=== PATIENT | female | born 1955 | race Caucasian/White ===

== ENCOUNTER 2018-03-29 16:44 | Inpatient (IN) | payer OTHER ==
--- NOTE | 2018-03-29 18:09 | ED ---
General Adult HPI - General Chief complaint: Recheck/Abnormal Lab/Rx Stated complaint: Nervousness Time Seen by Provider: 03/29/18 17:21 Source: patient Mode of arrival: ambulatory Limitations: no limitations - History of Present Illness Initial comments: 62-year-old female with past medical history significant for hypertension, CVA, heart arrhythmia, presents to the emergency department today with multiple complaints. Patient states over the last week and a half she has been having intermittent episodes where she has shaking and weakness in her arms, mostly on the left side. Patient states that she drops things frequently. She states that she has also been having shooting pains in her neck that radiates up into her head and down her right arm. Patient states that sometimes the episodes last for hours and sometimes they go away quickly. Patient states that she started having episodes again today so she presented here for evaluation. She has been having chest pain on and off for the last few days as well. Denies any nausea, vomiting, sweats, or dizziness. Patient states that she occasionally gets headaches and has blurred vision with this. She currently denies any symptoms. Patient denies any current rash, fever, chills, abdominal pain, diarrhea, constipation, back pain, numbness, tingling, dizziness, weakness, hematuria, dysuria, urinary urgency, urinary frequency, or any other complaints. Does admit to drinking three shots of liquor at least once per week. - Related Data Home Medications Medication Instructions Recorded Confirmed ALPRAZolam 1 mg PO TID PRN 04/02/15 04/10/15 Losartan/Hydrochlorothiazide 1 tab PO DAILY 04/02/15 04/10/15 [Losartan-Hctz 100-25 mg Tab] amLODIPine [Norvasc] 10 mg PO DAILY 04/03/15 04/10/15 Previous Rx's Medication Instructions Recorded Aspirin EC [Ecotrin] 325 mg PO DAILY #30 tablet. 04/05/15 Atorvastatin [Lipitor] 40 mg PO HS #30 04/05/15 Carvedilol [Coreg] 6.25 mg PO BID #0 04/05/15 Furosemide [Lasix] 20 mg PO DAILY #5 tab 04/10/15 Allergies Allergy/AdvReac Type Severity Reaction Status Date / Time rice Allergy Anaphylaxis Uncoded 03/29/18 16:56 Review of Systems ROS Statement: Those systems with pertinent positive or pertinent negative responses have been documented in the HPI. ROS Other: All systems not noted in ROS Statement are negative. Past Medical History Past Medical History: Atrial Fibrillation, GERD/Reflux, Hyperlipidemia, Hypertension, Musculoskeletal Disorder, Osteoarthritis (OA), Supraventricular Tachycardia (SVT) Additional Past Medical History / Comment(s): irregular heart beat History of Any Multi-Drug Resistant Organisms: None Reported Past Surgical History: Ablation, Heart Catheterization, Tonsillectomy, Tubal Ligation Additional Past Surgical History / Comment(s): cardiac ablation, implanted slurry mixer to chest Past Anesthesia/Blood Transfusion Reactions: No Reported Reaction Past Psychological History: Anxiety Smoking Status: Never smoker Past Alcohol Use History: Occasional Past Drug Use History: None Reported - Past Family History Mother Family Medical History: Liver Disease Father Family Medical History: Coronary Artery Disease (CAD), Myocardial Infarction ([place] ) Sister(s) Family Medical History: No Reported History, Unable to Obtain Brother(s) Family Medical History: Cancer Daughter(s) Family Medical History: No Reported History General Exam Limitations: no limitations General appearance: alert, in no apparent distress, other (This is a well- developed, well-nourished adult female patient in no acute distress. Vital signs upon presentation are temperature 98.6F, pulse 77, respirations 18, blood pressure 147/91, pulse ox 97% on room air.) Eye exam: Present: normal appearance, PERRL, EOMI, nystagmus (Horizontal gaze nystagmus right and left.). Absent: scleral icterus, conjunctival injection, periorbital swelling ENT exam: Present: normal exam, normal oropharynx, mucous membranes moist Neck exam: Present: normal inspection, full ROM. Absent: tenderness, meningismus, lymphadenopathy Respiratory exam: Present: normal lung sounds bilaterally. Absent: respiratory distress, wheezes, rales, rhonchi, stridor Cardiovascular Exam: Present: regular rate, normal rhythm, normal heart sounds. Absent: systolic murmur, diastolic murmur, rubs, gallop, clicks GI/Abdominal exam: Present: soft, normal bowel sounds. Absent: distended, tenderness, guarding, rebound, rigid Extremities exam: Present: normal inspection, full ROM, normal capillary refill , other (Skin to the extremities is pink, warm, and dry. Cap refills less than 3 seconds. Radial pulses are 2+ and equal bilaterally. Pedal pulses are 2+ and equal bilaterally. There is evidence of ankle and pedal edema, 1+ pitting.) . Absent: tenderness, pedal edema, joint swelling, calf tenderness Back exam: Present: normal inspection. Absent: vertebral tenderness Neurological exam: Present: alert, oriented X3, CN II-XII intact Expanded Speech: Present: fluid speech Cranial nerves: EOM's Intact: Normal Cerebellar function: Finger to Nose: Normal Motor strength exam: RUE: 5, LUE: 5, RLE: 5, LLE: 5 Eye Response: (4) open spontaneously Motor Response: (6) obeys commands Verbal Response: (5) oriented [place] Total: 15 Psychiatric exam: Present: normal affect, normal mood Skin exam: Present: warm, dry, intact, normal color. Absent: rash Course Vital Signs 03/29/18 03/29/18 03/29/18 16:53 18:48 19:42 Temperature 98.6 F 98.5 F Pulse Rate 77 60 71 Respiratory 18 16 18 Rate Blood Pressure 147/91 150/68 128/59 O2 Sat by Pulse 97 95 95 Oximetry EKG Findings - EKG Comments: EKG Findings:: EKG obtained at 1836 shows sinus rhythm with occasional premature ventricular complexes. Ventricular rate is 69, CA interval 194, QR voodoo 86, QT 408, QTC 437. No evidence of ST elevation or depression. Did review EKG from 2014, changes appear chronic. Medical Decision Making - Medical Decision Making 62-year-old female patient presents the emergency department today for complaints of upper extremity shaking and weakness worse on the left side. Patient was also complaining of sharp shooting pain radiating from her neck up into her head and down her right arm. Physical examination at this time is unremarkable. Patient is neurologically intact. Patient does have history of hypertension, CVA, and arrhythmia so we did perform a neurologic workup including CT of the brain which showed no acute intracranial abnormality. I did also CT the C-spine to evaluate the pain in her neck, there does show evidence of degenerative disc disease of the neck. Labs reviewed and are unremarkable. Given patient's history and symptoms we will admit for possible TIA. Neurology will be consulted. I did discuss plan with the patient, she is agreeable. - Lab Data Result diagrams: 03/29/18 18:30 03/29/18 18:30 Lab Results 03/29/18 03/29/18 03/29/18 Range/Units 18:30 18:30 18:30 WBC 11.8 H (3.8-10.6) k/uL RBC 4.13 (3.80-5.40) m/uL Hgb 11.7 (11.4-16.0) gm/dL Hct 35.5 (34.0-46.0) % MCV 86.0 (80.0-100.0) fL MCH 28.4 (25.0-35.0) pg MCHC 33.0 (31.0-37.0) g/dL RDW 12.9 (11.5-15.5) % Plt Count 361 (150-450) k/uL Neutrophils % 69 % Lymphocytes % 17 % Monocytes % 8 % Eosinophils % 4 % Basophils % 0 % Neutrophils # 8.2 H (1.3-7.7) k/uL Lymphocytes # 2.0 (1.0-4.8) k/uL Monocytes # 0.9 (0-1.0) k/uL Eosinophils # 0.5 (0-0.7) k/uL Basophils # 0.0 (0-0.2) k/uL PT (9.0-12.0) sec INR (<1.2) APTT (22.0-30.0) sec Sodium 140 (137-145) mmol/L Potassium 4.3 (3.5-5.1) mmol/L Chloride 100 (98-107) mmol/L Carbon Dioxide 28 (22-30) mmol/L Anion Gap 12 mmol/L BUN 19 H (7-17) mg/dL Creatinine 0.85 (0.52-1.04) mg/dL Est GFR (CKD-EPI)AfAm 84 (>60 ml/min/1.73 sqM) Est GFR (CKD-EPI)NonAf 73 (>60 ml/min/1.73 sqM) Glucose 92 (74-99) mg/dL Calcium 9.4 (8.4-10.2) mg/dL Total Bilirubin 0.6 (0.2-1.3) mg/dL AST 32 (14-36) U/L ALT 36 (9-52) U/L Alkaline Phosphatase 88 (38-126) U/L Total Creatine Kinase 71 (30-135) U/L CK-MB (CK-2) 1.1 (0.0-2.4) ng/mL CK-MB (CK-2) Rel Index 1.5 Troponin I <0.012 (0.000-0.034) ng/mL Total Protein 7.6 (6.3-8.2) g/dL Albumin 4.4 (3.5-5.0) g/dL Urine Color Urine Appearance (Clear) Urine pH (5.0-8.0) Ur Specific [place] (1.001-1.035) Urine Protein (Negative) Urine Glucose (UA) (Negative) Urine Ketones (Negative) Urine Blood (Negative) Urine Nitrite (Negative) Urine Bilirubin (Negative) Urine Urobilinogen (<2.0) mg/dL Ur Leukocyte Esterase (Negative) 03/29/18 03/29/18 Range/Units 18:30 19:53 WBC (3.8-10.6) k/uL RBC (3.80-5.40) m/uL Hgb (11.4-16.0) gm/dL Hct (34.0-46.0) % MCV (80.0-100.0) fL MCH (25.0-35.0) pg MCHC (31.0-37.0) g/dL RDW (11.5-15.5) % Plt Count (150-450) k/uL Neutrophils % % Lymphocytes % % Monocytes % % Eosinophils % % Basophils % % Neutrophils # (1.3-7.7) k/uL Lymphocytes # (1.0-4.8) k/uL Monocytes # (0-1.0) k/uL Eosinophils # (0-0.7) k/uL Basophils # (0-0.2) k/uL PT 10.6 (9.0-12.0) sec INR 1.1 (<1.2) APTT 23.0 (22.0-30.0) sec Sodium (137-145) mmol/L Potassium (3.5-5.1) mmol/L Chloride (98-107) mmol/L Carbon Dioxide (22-30) mmol/L Anion Gap mmol/L BUN (7-17) mg/dL Creatinine (0.52-1.04) mg/dL Est GFR (CKD-EPI)AfAm (>60 ml/min/1.73 sqM) Est GFR (CKD-EPI)NonAf (>60 ml/min/1.73 sqM) Glucose (74-99) mg/dL Calcium (8.4-10.2) mg/dL Total Bilirubin (0.2-1.3) mg/dL AST (14-36) U/L ALT (9-52) U/L Alkaline Phosphatase (38-126) U/L Total Creatine Kinase (30-135) U/L CK-MB (CK-2) (0.0-2.4) ng/mL CK-MB (CK-2) Rel Index Troponin I (0.000-0.034) ng/mL Total Protein (6.3-8.2) g/dL Albumin (3.5-5.0) g/dL Urine Color Colorless Urine Appearance Clear (Clear) Urine pH 7.5 (5.0-8.0) Ur Specific [place] 1.005 (1.001-1.035) Urine Protein Negative (Negative) Urine Glucose (UA) Negative (Negative) Urine Ketones Negative (Negative) Urine Blood Negative (Negative) Urine Nitrite Negative (Negative) Urine Bilirubin Negative (Negative) Urine Urobilinogen <2.0 (<2.0) mg/dL Ur Leukocyte Esterase Negative (Negative) - Radiology Data Radiology results: report reviewed, image reviewed CT brain and C-spine without contrast was performed. Report was reviewed in its entirety. Impression by Dr. Bhandari shows no acute fracture or dislocation evident in the cervical spine. There is no acute intracranial hemorrhage, mass effect, or midline shift. Two-view x-ray of the chest is obtained. There is no focal airspace opacity, pleural effusion, or pneumothorax. The cardiac silhouette size is within normal limits. There are overlying cardiac leads. Overlying loop recorder is present as on prior. The osseous structures are intact. Impression by Dr. Bhandari shows no acute cardio pulmonary process. Disposition Clinical Impression: TIA (transient ischemic attack) Disposition: ADMITTED IP TO THIS HOSP Condition: Serious Referrals: Tayler Dunne III, MD [Primary Care Provider] - 1-2 days Decision to Admit Reason: Admit from EC Decision Date: 03/29/18 Decision Time: 21:04
[2018-03-29 19:10] LABS: Albumin 4.4 g/dL (3.5-5.0); Calcium 9.4 mg/dL (8.4-10.2); Potassium 4.3 mmol/L (3.5-5.1); Total Bilirubin 0.6 mg/dL (0.2-1.3); Total Protein 7.6 g/dL (6.3-8.2)
[2018-03-29 19:13] LABS: Basophils % (A) 0 %; Eosinophils # (A) 0.5 k/uL (0-0.7); Eosinophils % (A) 4 %; HCT 35.5 % (34.0-46.0); HGB 11.7 gm/dL (11.4-16.0); Lymphocytes % (A) 17 %; MCH 28.4 pg (25.0-35.0); Mean Platelet Volume 6.9; Monocytes # (A) 0.9 k/uL (0-1.0); Monocytes % (A) 8 %; Neutrophils # (A) 8.2 k/uL (1.3-7.7); Neutrophils % (A) 69 %; Platelet Count 361 k/uL (150-450); RBC 4.13 m/uL (3.80-5.40); RDW 12.9 % (11.5-15.5); WBC 11.8 k/uL (3.8-10.6)
[2018-03-29 19:18] LABS: INR 1.1 (<1.2); Prothrombin Time 10.6 sec (9.0-12.0)
[2018-03-29 19:25] LABS: Creatine Kinase 71 U/L (30-135)
[2018-03-29 19:39] LABS: Creatine Kinase MB 1.1 ng/mL (0.0-2.4); Troponin I <0.012 ng/mL (0.000-0.034)
--- NOTE | 2018-03-29 19:43 | XR ---
EXAMINATION TYPE: XR chest 2V DATE OF EXAM: 03/29/2018 COMPARISON: Prior chest x-ray 04/10/2015 HISTORY: Altered mental status TECHNIQUE: Frontal and lateral views of the chest are obtained. FINDINGS: There is no focal air space opacity, pleural effusion, or pneumothorax seen. The cardiac silhouette size is within normal limits. There are overlying cardiac leads. An overlying loop recorde r is present as on prior. The osseous structures are intact. IMPRESSION: No acute cardiopulmonary process.
--- NOTE | 2018-03-29 19:58 | CT ---
EXAMINATION TYPE: CT brain cspine wo con DATE OF EXAM: 03/29/2018 COMPARISON: CT brain 04/02/2015 HISTORY: Headache, weakness and neck pain. CT DLP: 1829 mGycm Automated exposure control for dose reduction was used. TECHNIQUE: CT scan of the head and cervical spine are performed without contrast. FINDINGS: There is no acute intracranial hemorrhage, mass effect, or midline shift identified. The ventricles and sulci are within normal limits in size. Brain density is stable. The globes are inta ct and the visualized sinuses are remarkable for inflammatory change in the ethmoid air cells, mastoi ds are well aerated. Cerebral vascular calcifications are present. Cervical spine is visualized in its entirety from C1 through upper thoracic levels and demonstrates s atisfactory alignment without evidence of acute fracture or dislocation. There is multilevel spondylo sis. Loss of disc height present at C4-5, C5-6 compatible with degenerative disc disease. Prevertebra l soft tissue appears within normal limits. There is multilevel facet arthropathy and foraminal encr oachment. The C1-C2 articulation is unremarkable. IMPRESSION: 1. There is no acute fracture or dislocation evident in the cervical spine. 2. No acute intracranial hemorrhage, mass effect, or midline shift is seen.
[2018-03-29 20:00] LABS: Appearance,Urine Clear (Clear); Bilirubin,Urine Negative (Negative); Blood,Urine Negative (Negative); Color,Urine Colorless; Glucose,Urine (UA) Negative (Negative); Ketones,Urine Negative (Negative); Leukocyte Esterase,Urine Negative (Negative); Nitrite,Urine Negative (Negative); PH, Urine 7.5 (5.0-8.0); Protein,Urine Negative (Negative); Specific Gravity,Urine 1.005 (1.001-1.035); Urobilinogen,Urine <2.0 mg/dL (<2.0)
[2018-03-29] MEDS ORDERED: NALOXONE 0.4 MG/ML 1 ML VIAL IV PRN (20:57)
[2018-03-29] MEDS ORDERED: SODIUM CHLORIDE 0.9% 1,000 ML IV SCH (21:00)
[2018-03-29 22:39] VITALS: RESP 16; BMI 27.1
[2018-03-29] MEDS: ALPRAZolam 1 MG TAB PO PRN (22:57)
[2018-03-30] MEDS: ALPRAZolam 1 MG TAB PO PRN (12:37)
[2018-03-30 13:13] VITALS: TEMP 97.3
[2018-03-30 13:14] VITALS: BP 101/74; PULSE 71
--- NOTE | 2018-03-30 14:09 | P.HPIM ---
History of Present Illness 62-year-old with history of present a TIA came in with compensative tingling and numbness in the left arm and electric shock like sensation going to the left arm patient has the neck pain and patient does have degenerative neck disease. Patient does not have any other weakness patient was comparing of generalized weakness. I'll obtain a TSH. Patient does have neck pain as well. Patient's symptomology is consistent with the radiculopathy from my degenerative neck disease has symptomology is not consistent with cerebrovascular accident. Patient will be discharged today follow-up with neurology as an outpatient will order outpatient echocardiogram and carotid Doppler. Patient had history of stroke in the past was at work up in the past patient takes aspirin at home. For her generalized weakness I did obtain a TSH is within normal limits patient to be further evaluated as an outpatient screen for depression as an outpatient. Patient denied any fever chills nausea vomiting. Patient denied any other focal weakness. Review of Systems REVIEW OF SYSTEMS: CONSTITUTIONAL: No fever, no malaise, no fatigue. HEENT: No recent visual problems or hearing problems. Denied any sore throat. CARDIOVASCULAR: No chest pain, orthopnea, PND, no palpitations, no syncope. PULMONARY: No shortness of breath, no cough, no hemoptysis. GASTROINTESTINAL: No diarrhea, no nausea, no vomiting, no abdominal pain. Normoactive bowel sounds. NEUROLOGICAL: No headaches, no weakness, no numbness. HEMATOLOGICAL: Denies any bleeding or petechiae. GENITOURINARY: Denies any burning micturition, frequency, or urgency. MUSCULOSKELETAL/RHEUMATOLOGICAL: Denies any joint pain, swelling, or any muscle pain. ENDOCRINE: Denies any polyuria or polydipsia. The rest of the 14-point review of systems is negative. Past Medical History Past Medical History: Atrial Fibrillation, GERD/Reflux, Hyperlipidemia, Hypertension, Musculoskeletal Disorder, Osteoarthritis (OA), Supraventricular Tachycardia (SVT) Additional Past Medical History / Comment(s): irregular heart beat History of Any Multi-Drug Resistant Organisms: None Reported Past Surgical History: Ablation, Heart Catheterization, Tonsillectomy, Tubal Ligation Additional Past Surgical History / Comment(s): cardiac ablation, implanted quality assurance monitor body to chest Past Anesthesia/Blood Transfusion Reactions: No Reported Reaction Past Psychological History: Anxiety Smoking Status: Never smoker Past Alcohol Use History: Occasional Past Drug Use History: None Reported - Past Family History Mother Family Medical History: Liver Disease Father Family Medical History: Coronary Artery Disease (CAD), Myocardial Infarction ([place] ) Sister(s) Family Medical History: No Reported History, Unable to Obtain Brother(s) Family Medical History: Cancer Daughter(s) Family Medical History: No Reported History Medications and Allergies Home Medications Medication Instructions Recorded Confirmed Type amLODIPine [Norvasc] 10 mg PO DAILY 04/03/15 03/30/18 History Aspirin EC [Ecotrin Low Dose] 81 mg PO DAILY 03/30/18 03/30/18 History Atorvastatin [Lipitor] 40 mg PO HS 03/30/18 03/30/18 History Carvedilol [Coreg] 12.5 mg PO BID 03/30/18 03/30/18 History Valsartan/Hydrochlorothiazide 1 tab PO DAILY 03/30/18 03/30/18 History [Valsartan-Hctz 80-12.5 mg Tab] rOPINIRole HCL [Requip] 0.5 mg PO HS 03/30/18 03/30/18 History Allergies Allergy/AdvReac Type Severity Reaction Status Date / Time rice Allergy Anaphylaxis Uncoded 03/29/18 16:56 Physical Exam Vitals: Vital Signs Temp Pulse Pulse Resp BP BP Pulse Ox 03/30/18 12:00 71 101/74 95 03/30/18 08:00 97.3 F L 72 113/69 94 L 03/30/18 04:00 70 16 120/59 97 03/30/18 00:00 97.8 F 79 16 145/70 96 03/29/18 22:09 97.8 F 03/29/18 22:08 97.9 F 74 16 140/80 98 03/29/18 21:55 78 18 150/80 98 03/29/18 19:42 98.5 F 71 18 128/59 95 03/29/18 18:48 60 16 150/68 95 03/29/18 16:53 98.6 F 77 18 147/91 97 Intake and Output 03/29/18 03/30/18 03/30/18 22:59 06:59 14:59 Intake Total 480 960 360 Balance 480 960 360 Intake: Oral 480 960 360 Other: Voiding Method Toilet Bedside Commode # Voids 3 3 Weight 67.132 kg 64.8 kg PHYSICAL EXAMINATION: GENERAL: The patient is alert and oriented x3, not in any acute distress. Well developed, well nourished. HEENT: Pupils are round and equally reacting to light. EOMI. No scleral icterus. No conjunctival pallor. Normocephalic, atraumatic. No pharyngeal erythema. No thyromegaly. CARDIOVASCULAR: S1 and S2 present. No murmurs, rubs, or gallops. PULMONARY: Chest is clear to auscultation, no wheezing or crackles. ABDOMEN: Soft, nontender, nondistended, normoactive bowel sounds. No palpable organomegaly. MUSCULOSKELETAL: No joint swelling or deformity. EXTREMITIES: No cyanosis, clubbing, or pedal edema. NEUROLOGICAL: Gross neurological examination did not reveal any focal deficits. Radicular symptoms as mentioned above SKIN: No rashes. Results CBC & Chem 7: 03/29/18 18:30 03/29/18 18:30 Labs: Abnormal Lab Results - Last 24 Hours (Table) 03/29/18 03/29/18 Range/Units 18:30 18:30 WBC 11.8 H (3.8-10.6) k/uL Neutrophils # 8.2 H (1.3-7.7) k/uL BUN 19 H (7-17) mg/dL Assessment and Plan Plan: -Tingling numbness in the left arm: Secondary to cervical and acropathy patient will benefit from anti-inflammatory medications patient will be Edmund and anti -inflammatory medication and GI prophylaxis. -Previous history of cerebral vascular accident -Coronary artery disease -History of super ventricular tachycardia , patient had a ablation procedure in the past -Hypertension patient is actually bit hypotensive and cutting down the dose of amlodipine patient will continue her valsartan and hydrochlorothiazide combination pill.
--- NOTE | 2018-03-30 14:37 | P.DS ---
Providers Date of admission: 03/29/18 21:50 Attending physician: Fritz Mosley Consults: 03/29/18 20:58 Consult Physician Routine Consulting Provider: Karissa Heaton Consult Reason/Comments: TIA Do you want consulting provider notified?: Yes Primary care physician: Tayler Dunne [facility] Course: Please refer to my HPI Patient Condition at Discharge: Serious Plan - Discharge Summary Discharge Rx Participant: Yes New Discharge Prescriptions: New Famotidine [Pepcid] 20 mg PO BID #30 tablet Naproxen [Naprosyn] 250 mg PO BID #20 tab Continue Valsartan/Hydrochlorothiazide [Valsartan-Hctz 80-12.5 mg Tab] 1 tab PO DAILY Aspirin EC [Ecotrin Low Dose] 81 mg PO DAILY rOPINIRole HCL [Requip] 0.5 mg PO HS Atorvastatin [Lipitor] 40 mg PO HS Carvedilol [Coreg] 12.5 mg PO BID Changed amLODIPine [Norvasc] 5 mg PO DAILY #0 Discharge Medication List Aspirin EC [Ecotrin Low Dose] 81 mg PO DAILY 03/30/18 [History] Atorvastatin [Lipitor] 40 mg PO HS 03/30/18 [History] Carvedilol [Coreg] 12.5 mg PO BID 03/30/18 [History] Famotidine [Pepcid] 20 mg PO BID #30 tablet 03/30/18 [Rx] Naproxen [Naprosyn] 250 mg PO BID #20 tab 03/30/18 [Rx] Valsartan/Hydrochlorothiazide [Valsartan-Hctz 80-12.5 mg Tab] 1 tab PO DAILY 10/17 [History] amLODIPine [Norvasc] 5 mg PO DAILY #0 03/30/18 [Rx] rOPINIRole HCL [Requip] 0.5 mg PO HS 03/30/18 [History] Follow up Appointment(s)/Referral(s): Tayler Dunne III, MD [Primary Care Provider] - 3 Days Karissa Heaton MD [STAFF PHYSICIAN] - 1 Week Discharge Disposition: HOME SELF-CARE
--- NOTE | 2018-03-30 17:29 | P.CNNES ---
History of Present Illness Consult date: 03/30/18 Requesting physician: Fritz Mosley Reason for Consult: TIA History of Present Illness: Patient is a pleasant 62-year-old female who is being evaluated by the neurology service on 03/30/2018 per the request of Dr. Mosley for TIA. Patient has significant history for hypertension, CVA, cardiac arrhythmia, and generalized weakness. Patient states over the last week and a half she been having intermittent episodes of upper extremity shaking and weakness. Patient states these episodes come and go. Patient states she is dropping things frequently. Patient reports having shooting pains in her neck that radiates up into her head and down her right arm. Patient does not have lateralizing weakness or numbness. Numbness and weakness are in bilateral upper extremities. Patient states these symptoms worsened after being taken off Xanax. Patient asking to be placed back on Xanax. CT of the brain was done which showed no acute intracranial hemorrhage. Patient also had CT of the cervical spine which shows multilevel spondylosis as well as degenerative disc disease at multiple levels. CT of the cervical spine also shows multilevel facet arthropathy with foraminal encroachment. Labs on admission showed to be WBC 11.8, and also elevated BUN of 19. At the time of my evaluation, patient's resting comfortably in bed and appears to be in no acute distress. Review of Systems REVIEW OF SYSTEMS: Otherwise unremarkable and noncontributory. 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 chest Past Anesthesia/Blood Transfusion Reactions: No Reported Reaction Past Psychological History: Anxiety Smoking Status: Never smoker Past Alcohol Use History: Occasional Past Drug Use History: None Reported - Past Family History Mother Family Medical History: Liver Disease Father Family Medical History: Coronary Artery Disease (CAD), Myocardial Infarction ([place] ) Sister(s) Family Medical History: No Reported History, Unable to Obtain Brother(s) Family Medical History: Cancer Daughter(s) Family Medical History: No Reported History Medications and Allergies Home Medications Medication Instructions Recorded Confirmed Type Aspirin EC [Ecotrin Low Dose] 81 mg PO DAILY 03/30/18 03/30/18 History Atorvastatin [Lipitor] 40 mg PO HS 03/30/18 03/30/18 History Carvedilol [Coreg] 12.5 mg PO BID 03/30/18 03/30/18 History Famotidine [Pepcid] 20 mg PO BID #30 tablet 03/30/18 Rx Naproxen [Naprosyn] 250 mg PO BID #20 tab 03/30/18 Rx Valsartan/Hydrochlorothiazide 1 tab PO DAILY 03/30/18 03/30/18 History [Valsartan-Hctz 80-12.5 mg Tab] amLODIPine [Norvasc] 5 mg PO DAILY #0 03/30/18 03/30/18 Rx rOPINIRole HCL [Requip] 0.5 mg PO HS 03/30/18 03/30/18 History Allergies Allergy/AdvReac Type Severity Reaction Status Date / Time rice Allergy Anaphylaxis Uncoded 03/29/18 16:56 Physical Examination - Vital Signs Vital Signs: Vital Signs Temp Pulse Pulse Resp BP BP Pulse Ox 03/30/18 12:00 71 101/74 95 03/30/18 08:00 97.3 F L 72 113/69 94 L 03/30/18 04:00 70 16 120/59 97 03/30/18 00:00 97.8 F 79 16 145/70 96 03/29/18 22:09 97.8 F 03/29/18 22:08 97.9 F 74 16 140/80 98 03/29/18 21:55 78 18 150/80 98 03/29/18 19:42 98.5 F 71 18 128/59 95 03/29/18 18:48 60 16 150/68 95 Intake and Output 03/30/18 03/30/18 03/30/18 06:59 14:59 22:59 Intake Total 960 600 Balance 960 600 Intake: Oral 960 600 Other: Voiding Method Toilet Bedside Commode # Voids 3 2 Weight 64.8 kg PHYSICAL EXAM: GENERAL APPEARANCE: Patient is a well-developed, female who appears to be in no acute distress. HEENT: Normocephalic, atraumatic, no facial asymmetry is seen. Neck is supple with no masses felt. CARDIOVASCULAR: Regular rate and rhythm. ABDOMEN: Nontender, nondistended. EXTREMITIES: Show no edema or clubbing. NEUROLOGICAL EXAM: Patient is awake, alert, and oriented 3. Speech and language are normal. Strength is full in all 4 extremities. Sensory exam to light touch is normal in all 4 extremities. No facial asymmetry is seen on cranial nerve testing. No tremors or seizure-like activity noted. Results - Laboratory Findings CBC and BMP: 03/29/18 18:30 03/29/18 18:30 Abnormal Lab Findings: Abnormal Labs 03/29/18 03/29/18 18:30 18:30 WBC 11.8 H Neutrophils # 8.2 H BUN 19 H Assessment and Plan Plan: Impression: 1. Bilateral upper extremity weakness 2. Bilateral upper extremity paresthesia 3. History of CVA 4. CAD Recommendation: Patient continues to complain of bilateral upper extremity weakness and numbness. She also complains of posterior neck pain that travels up into her head. CT of the cervical spine revealed degenerative disc disease as well as facet arthropathy with foraminal encroachment. Patient may benefit from cervical epidurals in the outpatient setting. Patient's symptoms are not consistent with TIA. Patient may benefit from anti-inflammatory medication such as naproxen. Patient is already on naproxen 250 mg twice a day in the home setting. I recommend to increase naproxen to 500 mg by mouth twice a day. Patient may follow-up in the office for further workup for cervical disc disease. Patient is stable from neurological standpoint for discharge. I will continue to follow with you on an as-needed basis. Thank you for allowing me to participate in the care of your patient. Feel free to call with any questions or concerns. I performed an examination of the patient and discussed the management with the BRUSH PAINTER. I have reviewed the BRUSH PAINTER notes and agree with the findings and plan of care.
== END 2018-03-30 16:37 | disposition home or self-care (01) | DRG 552 ==
LOC: EC 16:44 → 6SEL 21:50
PROVIDERS: ADMIT Internal Medicine; ATTEND Internal Medicine
DX: M46.92 Unspecified inflammatory spondylopathy, cervical region (principal); I10 Essential (primary) hypertension; K21.9 Gastro-esophageal reflux disease without esophagitis; E78.5 Hyperlipidemia, unspecified; M19.90 Unspecified osteoarthritis, unspecified site; F41.9 Anxiety disorder, unspecified; I25.10 Atherosclerotic heart disease of native coronary artery without angina pectoris; I48.91 Unspecified atrial fibrillation; M47.9 Spondylosis, unspecified; M50.30 Other cervical disc degeneration, unspecified cervical region; R40.2412 Glasgow coma scale score 13-15, at arrival to emergency department; Z86.73 Personal history of transient ischemic attack (TIA), and cerebral infarction without residual deficits; Z98.51 Tubal ligation status; Z82.49 Family history of ischemic heart disease and other diseases of the circulatory system; Z79.82 Long term (current) use of aspirin; Z79.899 Other long term (current) drug therapy; Z91.018 Allergy to other foods
CPT/HCPCS: 36415; 70450; 71046; 72125; 80053; 81003; 82550; 82553; 84443; 84484; 85025; 85610; 85730; 93005; 99285

== ENCOUNTER → 2018-04-17 | Outpatient (CLI) | payer OTHER ==
--- NOTE | 2018-04-17 16:59 | US ---
EXAMINATION TYPE: US carotid duplex BILAT DATE OF EXAM: 04/17/2018 COMPARISON: 04/03/2015 CLINICAL HISTORY: 62-year-old female. TIA TECHNIQUE: Carotid duplex ultrasound examination. Direct Doppler criteria was utilized. FINDINGS: EXAM MEASUREMENTS: RIGHT: Peak Systolic Velocity (PSV) cm/sec ----- Right CCA: 41.8 ----- Right ICA: 88.4 ----- Right ECA: 112.0 ICA/CCA ratio: 2.1 RIGHT: End Diastole cm/sec ----- Right CCA: 12.5 ----- Right ICA: 18.7 ----- Right ECA: 9.7 LEFT: Peak Systolic Velocity (PSV) cm/sec ----- Left CCA: 37.1 ----- Left ICA: 64.6 ----- Left ECA: 49.6 ICA/CCA ratio: 1.7 LEFT: End Diastole cm/sec ----- Left CCA: 10.4 ----- Left ICA: 26.2 ----- Left ECA: 3.1 VERTEBRALS (direction of flow): Right Vertebral: Antegrade Left Vertebral: Antegrade Rhythm: Arrhythmia Script Developer notes: Bilateral intimal thickening, no elevated velocities, right ICA/CCA ratio 2.1 IMPRESSION: Slightly elevated right ICA/CCA ratio could reflect a mild or moderate proximal right ICA stenosis. Criteria for Assigning % of Stenosis / Diameter reduction (Estimation based on the indirect measurements of the internal carotid artery velocities (ICA PSV). 1. Normal (no stenosis)=ICA PSV < 125 cm/s: ratio < 2.0: ICA EDV<40 cm/s. 2. Less than 50% stenosis=ICA PSV < 125 cm/s: ratio < 2.0: ICA EDV<40 cm/s. 3. 50 to 69% stenosis=ICA PSV of 125 to 230 cm/s: ration 2.0 ? 4.0: ICA EDV 40-100 cm/s. 4. Greater than 70% stenosis to near occlusion= ICA PSV > 230 cm/s: ratio > 4.0: ICA EDV > 100 cm/s. 5. Near occlusion= ICA PSV velocities may be low or undetectable: variable ratio and ICA EDV. 6. Total occlusion=unable to detect flow.
--- NOTE | 2018-04-18 09:38 | ECHOF ---
Referral Reason:G45.9 Transient cerebral ischemic attack, unspecif MEASUREMENTS -------- HEIGHT: 157.5 cm WEIGHT: 65.8 kg BP: RVIDd: 2.5 cm (< 3.3) IVSd: 1.1 cm (0.6 - 1.1) LVIDd: 4.7 cm (3.9 - 5.3) LVPWd: 1.1 cm (0.6 - 1.1) IVSs: 1.3 cm LVIDs: 2.7 cm LVPWs: 1.3 cm LAESV Index (A-L): 26.84 ml/m Ao Diam: 2.8 cm (2.0 - 3.7) AV Cusp: 1.5 cm (1.5 - 2.6) LA Diam: 2.7 cm (2.7 - 3.8) MV EXCURSION: 15.488 mm (> 18.000) MV EF SLOPE: 75 mm/s (70 - 150) EPSS: 0.3 cm MV E Reilly: 0.72 m/s MV DecT: 312 ms MV A Reilly: 1.06 m/s MV E/A Ratio: 0.68 RAP: 5.00 mmHg RVSP: 38.55 mmHg FINDINGS -------- Sinus rhythm. Frequent ventricular premature beats. This was a technically adequate study. The left ventricular size is normal. There is borderline concentric left ventricular hypertrophy. Overall left ventricular systolic function is normal with, an EF between 55 - 60 %. The right ventricle is normal in size and function. Normal LA size by volume 22+/-6 ml/m2. The right atrium is normal in size. Aortic valve is trileaflet and is mildly thickened. Trace to mild aortic regurgitation. There is no evidence of aortic stenosis. The mitral valve leaflets are mildly thickened. Mild mitral regurgitation is present. Mild tricuspid regurgitation present. There is borderline pulmonary artery hypertension. The righ t ventricular systolic pressure, as measured by Doppler, is 38.55mmHg. The pulmonic valve was not well visualized. The aortic root size is normal. Normal inferior vena cava with normal inspiratory collapse consistent with estimated right atrial pre ssure of 5 mmHg. CONCLUSIONS -------- 1. Sinus rhythm. 2. Frequent ventricular premature beats. 3. This was a technically adequate study. 4. The left ventricular size is normal. 5. There is borderline concentric left ventricular hypertrophy. 6. Overall left ventricular systolic function is normal with, an EF between 55 - 60 %. 7. Normal LA size by volume 22+/-6 ml/m2. 8. Aortic valve is trileaflet and is mildly thickened. 9. Trace to mild aortic regurgitation. 10. The mitral valve leaflets are mildly thickened. 11. Mild mitral regurgitation is present. 12. Mild tricuspid regurgitation present. 13. There is borderline pulmonary artery hypertension. 14. The right ventricular systolic pressure, as measured by Doppler, is 38.55mmHg. 15. The pulmonic valve was not well visualized. 16. The aortic root size is normal. ELECTRICAL SYSTEMS ENGINEER: Manan Tinajero RDCS
== END | disposition home or self-care (01) ==
LOC: RADECHMAIN 13:46
PROVIDERS: ATTEND Internal Medicine
DX: G45.9 Transient cerebral ischemic attack, unspecified (principal); I08.3 Combined rheumatic disorders of mitral, aortic and tricuspid valves; I27.20 Pulmonary hypertension, unspecified
CPT/HCPCS: 93306; 93880

== ENCOUNTER → 2018-11-04 | Day surgery (SDC) | payer OTHER ==
[~2018-11-04] MED LIST: LIDOCAINE 1% INJ 10MG/ML (20 ML MDV) ONE; LIDOCAINE 1% INJ 10MG/ML (20 ML MDV) SQ ONE; SODIUM CHLORIDE 0.9% 1,000 ML IV SCH; ceFAZolin IN SWFI 2 GM/20 ML SYRINGE IVP ONE; fentaNYL (PF) 50 MCG/ML 2 ML AMP IV ONE; fentaNYL (PF) 50 MCG/ML 2 ML AMP ONE
[2018-11-04 10:09] VITALS: RESP 18; TEMP 97.8
--- NOTE | 2018-11-04 12:19 | P.PCN ---
Preoperative Diagnosis: Loop explant under sedation and local anesthesia. Patient was brought to the EP lab in a fasting state. Written informed consent was obtained prior to the procedure. The subcutaneous device was successfully explanted under local anesthesia. Preoperative antibiotics were administered. The wound was closed in layers and dressed per protocol. Result: Successful loop monitor explantation. Patient underwent EP procedure under conscious sedation/moderate sedation, monitoring of the level of consciousness and physiologic parameters including but not limited to vital signs and oxygenation. Patient tolerated the procedure well without any acute complications. Start time: 1204 Stop time: 1211
[2018-11-04 13:35] VITALS: BP 124/75; PULSE 80
== END | disposition home or self-care (01) ==
LOC: CATHEP 09:44
PROVIDERS: ATTEND Internal Medicine Clinical Cardiac Electrophysiology
DX: Z45.09 Encounter for adjustment and management of other cardiac device (principal); I10 Essential (primary) hypertension; I49.3 Ventricular premature depolarization; E78.5 Hyperlipidemia, unspecified; Z86.73 Personal history of transient ischemic attack (TIA), and cerebral infarction without residual deficits; Z79.899 Other long term (current) drug therapy; Z82.49 Family history of ischemic heart disease and other diseases of the circulatory system; Z79.82 Long term (current) use of aspirin; Z77.22 Contact with and (suspected) exposure to environmental tobacco smoke (acute) (chronic)
CPT/HCPCS: 33286; J2001; J3010; J0690

== ENCOUNTER 2019-12-03 19:11 | Emergency (ER) | payer MEDICARE, OTHER ==
[2019-12-03] MEDS ORDERED: LORazepam 2 MG/ML INJ IV STA (19:51)
[2019-12-03] MEDS ORDERED: SODIUM CHLORIDE 0.9% 1,000 ML IV STA ×2 (19:51)
[2019-12-03] MEDS ORDERED: ONDANSETRON 4 MG/2 ML VIAL IVP STA (19:51)
--- NOTE | 2019-12-03 19:53 | ED ---
Recheck HPI - General Chief Complaint: Recheck/Abnormal Lab/Rx Stated Complaint: High BP Time Seen by Provider: 12/03/19 19:27 Source: patient, RN notes reviewed, old records reviewed Mode of arrival: ambulatory Limitations: no limitations - History of Present Illness Initial Comments: This is a 64-year-old female via for evaluation. She presents today for evaluation of abnormal elevated blood pressure cellulitis chest wall secondary to scratching and not feeling well. Patient's range of motion was demonstrated during been having recent drug abuse, patient was seen by primary care sent him for evaluation of management of symptoms. Patient denies homicidal or suicidal thoughts Desmet refuse over the past MD Complaint: wound re-check -: days(s) Returns Today for: Called Because of Abnormal Lab/Test Symptoms Since Prior Visit: no new symptoms Context: planned re-check, called for abnormal lab result Associated Symptoms: none - Related Data Home Medications Medication Instructions Recorded Confirmed Aspirin EC [Ecotrin Low Dose] 81 mg PO DAILY 03/30/18 11/04/18 Atorvastatin [Lipitor] 40 mg PO HS 03/30/18 11/04/18 Carvedilol [Coreg] 12.5 mg PO BID 03/30/18 11/04/18 rOPINIRole HCL [Requip] 0.5 mg PO HS 03/30/18 11/04/18 ALPRAZolam [Xanax] 0.25 mg PO HS PRN 10/31/18 11/04/18 amLODIPine [Norvasc] 5 mg PO QAM 10/31/18 11/04/18 Losartan [Cozaar] 12.5 mg PO DAILY 11/04/18 11/04/18 Previous Rx's Medication Instructions Recorded Famotidine [Pepcid] 20 mg PO BID #30 tablet 03/30/18 Naproxen [Naprosyn] 250 mg PO BID #20 tab 03/30/18 Amoxic-Pot Clav 875-125Mg 1 tab PO Q12HR #20 tablet 12/03/19 [Augmentin 875-125] Allergies Allergy/AdvReac Type Severity Reaction Status Date / Time rice Allergy Anaphylaxis Uncoded 12/03/19 19:17 Review of Systems ROS Statement: Those systems with pertinent positive or pertinent negative responses have been documented in the HPI. ROS Other: All systems not noted in ROS Statement are negative. Past Medical History Past Medical History: Atrial Fibrillation, GERD/Reflux, Hyperlipidemia, Hypertension, Musculoskeletal Disorder, Osteoarthritis (OA), Supraventricular Tachycardia (SVT) Additional Past Medical History / Comment(s): february 2018 possible TIA, but CT was normal. 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 chest Past Anesthesia/Blood Transfusion Reactions: No Reported Reaction Past Psychological History: Anxiety Smoking Status: Never smoker Past Alcohol Use History: Occasional Past Drug Use History: None Reported - Past Family History Mother Family Medical History: Liver Disease Father Family Medical History: Coronary Artery Disease (CAD), Myocardial Infarction ([place]) Sister(s) Family Medical History: No Reported History, Unable to Obtain Brother(s) Family Medical History: Cancer Daughter(s) Family Medical History: No Reported History General Exam Limitations: no limitations General appearance: alert, in no apparent distress Head exam: Present: atraumatic, normocephalic, normal inspection Eye exam: Present: normal appearance, PERRL, EOMI. Absent: scleral icterus, conjunctival injection, periorbital swelling ENT exam: Present: normal exam, mucous membranes moist Neck exam: Present: normal inspection. Absent: tenderness, meningismus, lymphadenopathy Respiratory exam: Present: normal lung sounds bilaterally. Absent: respiratory distress, wheezes, rales, rhonchi, stridor Cardiovascular Exam: Present: regular rate, normal rhythm, normal heart sounds. Absent: systolic murmur, diastolic murmur, rubs, gallop, clicks GI/Abdominal exam: Present: soft, normal bowel sounds. Absent: distended, tenderness, guarding, rebound, rigid Extremities exam: Present: normal inspection, full ROM, normal capillary refill. Absent: tenderness, pedal edema, joint swelling, calf tenderness Back exam: Present: normal inspection Neurological exam: Present: alert, oriented X3, CN II-XII intact Psychiatric exam: Present: normal affect, normal mood Skin exam: Present: warm, dry, intact, normal color. Absent: rash Course Vital Signs 12/03/19 12/03/19 12/03/19 19:12 19:27 20:29 Temperature 97.9 F Pulse Rate 60 97 89 Respiratory 18 16 18 Rate Blood Pressure 195/98 168/116 161/102 O2 Sat by Pulse 98 98 99 Oximetry 12/03/19 22:24 Temperature 98.0 F Pulse Rate 83 Respiratory 18 Rate Blood Pressure 163/101 O2 Sat by Pulse 97 Oximetry - Reevaluation(s) Reevaluation #1: 12/03/19 20:14 Medical record is reviewed Reevaluation #2: 12/03/19 22:55 Significant sick contacts Medical Decision Making - Medical Decision Making 64-year-old here for evaluation. Patient is afebrile evaluation of arm pain and elevated blood pressure. Patient given appropriate referral in the eye symptoms are improved. Patient denies recent drug use, will follow primary care referral pressure management and put on antibiotics for bilateral axillary cellulitis - Lab Data Result diagrams: 12/03/19 19:40 12/03/19 19:40 Lab Results 12/03/19 12/03/19 12/03/19 Range/Units 19:40 19:40 19:40 WBC 10.7 H (3.8-10.6) k/uL RBC 4.26 (3.80-5.40) m/uL Hgb 12.0 (11.4-16.0) gm/dL Hct 37.6 (34.0-46.0) % MCV 88.3 (80.0-100.0) fL MCH 28.2 (25.0-35.0) pg MCHC 32.0 (31.0-37.0) g/dL RDW 12.1 (11.5-15.5) % Plt Count 519 H (150-450) k/uL Neutrophils % 67 % Lymphocytes % 22 % Monocytes % 6 % Eosinophils % 4 % Basophils % 1 % Neutrophils # 7.2 (1.3-7.7) k/uL Lymphocytes # 2.3 (1.0-4.8) k/uL Monocytes # 0.6 (0-1.0) k/uL Eosinophils # 0.4 (0-0.7) k/uL Basophils # 0.1 (0-0.2) k/uL Sodium 139 (137-145) mmol/L Potassium 3.7 (3.5-5.1) mmol/L Chloride 100 (98-107) mmol/L Carbon Dioxide 29 (22-30) mmol/L Anion Gap 10 mmol/L BUN 21 H (7-17) mg/dL Creatinine 0.89 (0.52-1.04) mg/dL Est GFR (CKD-EPI)AfAm 78 (>60 ml/min/1.73 sqM) Est GFR (CKD-EPI)NonAf 68 (>60 ml/min/1.73 sqM) Glucose 126 H (74-99) mg/dL Calcium 9.2 (8.4-10.2) mg/dL Phosphorus 3.8 (2.5-4.5) mg/dL Magnesium 2.0 (1.6-2.3) mg/dL Total Bilirubin 0.2 (0.2-1.3) mg/dL AST 41 H (14-36) U/L ALT 44 H (4-34) U/L Alkaline Phosphatase 153 H (38-126) U/L Total Protein 8.2 (6.3-8.2) g/dL Albumin 4.6 (3.5-5.0) g/dL Lipase 71 (23-300) U/L - EKG Data -: EKG Interpreted by Me (EKG shows sinus rhythm rate of 97, WA 170, QRS 80, QTC 476) Disposition Clinical Impression: Cellulitis, Cellulitis of left axilla Disposition: HOME SELF-CARE Condition: Good Instructions (If sedation given, give patient instructions): Cellulitis (ED) Prescriptions: Amoxic-Pot Clav 875-125Mg [Augmentin 875-125] 1 tab PO Q12HR #20 tablet Is patient prescribed a controlled substance at d/c from ED?: No Referrals: Tayler Dunne III, MD [Primary Care Provider] - 1-2 days
[2019-12-03 20:13] LABS: Basophils # (A) 0.1 k/uL (0-0.2); Basophils % (A) 1 %; Eosinophils # (A) 0.4 k/uL (0-0.7); Eosinophils % (A) 4 %; HCT 37.6 % (34.0-46.0); Lymphocytes # (A) 2.3 k/uL (1.0-4.8); Lymphocytes % (A) 22 %; MCH 28.2 pg (25.0-35.0); MCV 88.3 fL (80.0-100.0); Mean Platelet Volume 7.6; Monocytes # (A) 0.6 k/uL (0-1.0); Monocytes % (A) 6 %; Neutrophils # (A) 7.2 k/uL (1.3-7.7); Neutrophils % (A) 67 %; Platelet Count 519 k/uL (150-450); RBC 4.26 m/uL (3.80-5.40); RDW 12.1 % (11.5-15.5); WBC 10.7 k/uL (3.8-10.6)
[2019-12-03 20:24] LABS: Albumin 4.6 g/dL (3.5-5.0); Calcium 9.2 mg/dL (8.4-10.2); Phosphorus 3.8 mg/dL (2.5-4.5); Potassium 3.7 mmol/L (3.5-5.1); Total Bilirubin 0.2 mg/dL (0.2-1.3); Total Protein 8.2 g/dL (6.3-8.2)
[2019-12-03 20:29] VITALS: RESP 18
[2019-12-03 22:25] VITALS: BP 163/101; PULSE 83
--- NOTE | 2019-12-03 22:26 | US ---
EXAMINATION TYPE: US gallbladder DATE OF EXAM: 12/03/2019 COMPARISON: NONE CLINICAL HISTORY: pain. Pain per order. HTN, hyperlipidemia. EXAM MEASUREMENTS: Liver Length: 15.5 cm Gallbladder Wall: 0.29 cm CBD: 0.45 cm Right Kidney: 10.1 x 4.8 x 5.0 cm Pancreas: Appears hyperechoic. Duct measures 2.2 mm. Tail slightly obscured. Liver: Appears wnl Gallbladder: Folds seen. Appears anechoic. Evidence for sonographic Martel's sign: No CBD: Appears wnl Right Kidney: No hydronephrosis or masses seen IMPRESSION: No gallstones or dilated ducts. Negative exam.
[2019-12-03] MEDS ORDERED: AMOXIC-POT CLAV 875-125MG 1 EACH TAB PO STA (22:44)
[2019-12-03] MEDS ORDERED: AMOXIC-POT CLAV 875MG STARTER PACK 2 TAB BTL PO STA (22:44)
[2019-12-03 22:45] VITALS: TEMP 98
== END 2019-12-03 22:58 | disposition home or self-care (01) ==
LOC: EC 19:11
DX: L03.112 Cellulitis of left axilla (principal); L03.111 Cellulitis of right axilla; I10 Essential (primary) hypertension; I48.91 Unspecified atrial fibrillation; E78.5 Hyperlipidemia, unspecified; M19.90 Unspecified osteoarthritis, unspecified site; Z91.018 Allergy to other foods; Z79.82 Long term (current) use of aspirin; Z79.899 Other long term (current) drug therapy; Z95.818 Presence of other cardiac implants and grafts; Z98.890 Other specified postprocedural states; Z82.49 Family history of ischemic heart disease and other diseases of the circulatory system
CPT/HCPCS: 36415; 93005; 80053; 83690; 83735; 84100; 85025; 76705; 99284; 96365; 96375 ×2; 96361; J2060; J2405; J0696

== ENCOUNTER 2021-11-25 07:48 | Inpatient (IN) | payer MEDICARE ==
--- NOTE | 2021-11-25 08:13 | ED ---
Fall HPI - General Stated Complaint: Fall/Lt hip injury Time Seen by Provider: 11/25/21 07:58 - History of Present Illness Initial Comments: This is a pleasant 65-year-old female who presents to the emergency department after falling last night at about 10:30. Patient states she was having a snowball fight with her grandson. She turned and ended up tripping. Patient fell onto the lateral aspect of the left hip. She is complaining of sharp pain to this area which is exacerbated by movement. Patient states she can't walk due to the pain. No distal injuries or proximal injuries. No distal paresthesias. Patient denies any other injuries. There was no preceding symptomatology. No head or neck injury. Patient does have atrial fibrillation but states she is not on blood thinners. Patient previously had a cardiac ablation. Also has a history of hypertension, hyperlipidemia, and SVT. No headache, no fever or chills, no changes in vision or hearing, no sore throat or difficulty with speech, no neck pain, no chest pain or shortness of breath, no abdominal pain, no nausea or vomiting, no changes in urination or bowel movements, no numbness or tingling, no skin rashes or lesions. - Related Data Home Medications Medication Instructions Recorded Confirmed Aspirin EC [Ecotrin Low Dose] 81 mg PO DAILY 03/30/18 11/04/18 Atorvastatin [Lipitor] 40 mg PO HS 03/30/18 11/04/18 Carvedilol [Coreg] 12.5 mg PO BID 03/30/18 11/04/18 rOPINIRole HCL [Requip] 0.5 mg PO HS 03/30/18 11/04/18 ALPRAZolam [Xanax] 0.25 mg PO HS PRN 10/31/18 11/04/18 amLODIPine [Norvasc] 5 mg PO QAM 10/31/18 11/04/18 Losartan [Cozaar] 12.5 mg PO DAILY 11/04/18 11/04/18 Previous Rx's Medication Instructions Recorded Famotidine [Pepcid] 20 mg PO BID #30 tablet 03/30/18 Naproxen [Naprosyn] 250 mg PO BID #20 tab 03/30/18 Amoxic-Pot Clav 875-125Mg 1 tab PO Q12HR #20 tablet 12/03/19 [Augmentin 875-125] Allergies Allergy/AdvReac Type Severity Reaction Status Date / Time rice Allergy Anaphylaxis Uncoded 12/03/19 19:17 Review of Systems ROS Statement: Those systems with pertinent positive or pertinent negative responses have been documented in the HPI. ROS Other: All systems not noted in ROS Statement are negative. Past Medical History Past Medical History: Atrial Fibrillation, GERD/Reflux, Hyperlipidemia, Hypertension, Musculoskeletal Disorder, Osteoarthritis (OA), Supraventricular Tachycardia (SVT) Additional Past Medical History / Comment(s): february 2018 possible TIA, but CT was normal. irregular heart beat History of Any Multi-Drug Resistant Organisms: None Reported Past Surgical History: Ablation, Heart Catheterization, Tonsillectomy, Tubal Ligation Additional Past Surgical History / Comment(s): cardiac ablation, implanted pants cutter to chest Past Anesthesia/Blood Transfusion Reactions: No Reported Reaction Past Psychological History: Anxiety Past Alcohol Use History: Occasional Past Drug Use History: None Reported - Past Family History Mother Family Medical History: Liver Disease Father Family Medical History: Coronary Artery Disease (CAD), Myocardial Infarction ([place]) Sister(s) Family Medical History: No Reported History, Unable to Obtain Brother(s) Family Medical History: Cancer Daughter(s) Family Medical History: No Reported History General Exam - General Exam Comments Initial Comments: Healthy-appearing 65-year-old female in no acute distress at the time I'm seeing her. Does not appear to be ill or toxic. Cranial nerves II through XII grossly intact General appearance: alert, in no apparent distress Head exam: Present: atraumatic, normocephalic, normal inspection Eye exam: Present: normal appearance, PERRL, EOMI. Absent: scleral icterus, conjunctival injection, periorbital swelling ENT exam: Present: normal exam, normal oropharynx, mucous membranes moist Neck exam: Present: normal inspection. Absent: tenderness, meningismus, lymphadenopathy Respiratory exam: Present: normal lung sounds bilaterally. Absent: respiratory distress, wheezes, rales, rhonchi, stridor Cardiovascular Exam: Present: regular rate, normal rhythm, normal heart sounds. Absent: systolic murmur, diastolic murmur, rubs, gallop, clicks GI/Abdominal exam: Present: soft, normal bowel sounds. Absent: distended, tenderness, guarding, rebound, rigid Extremities exam: Present: normal inspection, full ROM, normal capillary refill. Absent: tenderness, pedal edema, joint swelling, calf tenderness Left Hip exam: Present: normal inspection, tenderness. Absent: full ROM, swelling, abrasion, laceration, ecchymosis, deformity, crepitus, dislocation, erythema, external rotation, internal rotation, shortening, pelvic stability Upper Leg exam: Present: normal inspection. Absent: tenderness, swelling, abrasion, laceration, ecchymosis, erythema Knee exam: Present: normal inspection, full ROM. Absent: tenderness, swelling Lower Leg exam: Absent: normal inspection, tenderness, swelling, abrasion Ankle exam: Present: normal inspection, full ROM. Absent: tenderness Foot/Toe exam: Present: normal inspection, full ROM. Absent: tenderness Neurovascular tendon exam: Present: no vascular compromise. Absent: pulse deficit, abnormal cap refill, sensory deficit, extremity cold to touch Gait: not tested/not observed Back exam: Present: normal inspection Neurological exam: Present: alert, oriented X3, CN II-XII intact. Absent: altered, motor sensory deficit Expanded Patient oriented to: Present: person Speech: Present: fluid speech, expressive aphasia, anomia Sensory exam: Upper Extremity Light Touch: Normal, Upper Extremity Pin Prick: Normal, Upper Extremity Temperature: Normal Eye Response: (4) open spontaneously Motor Response: (6) obeys commands Verbal Response: (5) oriented Aleida Total: 15 Psychiatric exam: Present: normal affect, normal mood Skin exam: Present: warm, dry, intact, normal color. Absent: rash Course Vital Signs 11/25/21 07:56 Temperature 98 F Pulse Rate 85 Blood Pressure 145/105 O2 Sat by Pulse 97 Oximetry - Reevaluation(s) Reevaluation #1: 11/25/21 09:29 Medical record is reviewed Symptoms are improved here in the emergency department Patient is informed of results and questions answered Patient in no distress Medical Decision Making - Medical Decision Making Patient presents after a mechanical fall involving an injury to her left hip. Patient neurologically intact otherwise. Differential included left hip fracture, left hip contusion, traumatic bursitis, noted the patient states she cannot ambulate due to pain. Patient was given morphine by the EMS crew. No significant pain when not moving. The case was discussed in detail with ED attending physician. Presentation, findings, treatment plan discussed in detail. Case was discussed in detail with the on-call orthopedic physician, Dr. Bond, patient will be admitted to his service. Consultation to medicine will be placed for medical clearanc--Dr. Hernandez All findings discussed with the patient. - Lab Data Result diagrams: 11/25/21 08:23 11/25/21 08:23 Lab Results 11/25/21 11/25/21 11/25/21 Range/Units 08:23 08:23 08:23 WBC 9.9 (3.8-10.6) k/uL RBC 4.53 (3.80-5.40) m/uL Hgb 13.3 (11.4-16.0) gm/dL Hct 39.9 (34.0-46.0) % MCV 88.0 (80.0-100.0) fL MCH 29.4 (25.0-35.0) pg MCHC 33.4 (31.0-37.0) g/dL RDW 13.1 (11.5-15.5) % Plt Count 361 (150-450) k/uL MPV 7.7 Neutrophils % 69 % Lymphocytes % 18 % Monocytes % 7 % Eosinophils % 5 % Basophils % 1 % Neutrophils # 6.8 (1.3-7.7) k/uL Lymphocytes # 1.8 (1.0-4.8) k/uL Monocytes # 0.7 (0-1.0) k/uL Eosinophils # 0.5 (0-0.7) k/uL Basophils # 0.1 (0-0.2) k/uL PT 10.7 (9.0-12.0) sec INR 1.0 (<1.2) APTT 21.6 L (22.0-30.0) sec Sodium 137 (137-145) mmol/L Potassium 3.8 (3.5-5.1) mmol/L Chloride 104 (98-107) mmol/L Carbon Dioxide 25 (22-30) mmol/L Anion Gap 8 mmol/L BUN 16 (7-17) mg/dL Creatinine 0.95 (0.52-1.04) mg/dL Est GFR (CKD-EPI)AfAm 72 (>60 ml/min/1.73 sqM) Est GFR (CKD-EPI)NonAf 63 (>60 ml/min/1.73 sqM) Glucose 116 H (74-99) mg/dL Calcium 8.9 (8.4-10.2) mg/dL Total Bilirubin 0.8 (0.2-1.3) mg/dL AST 27 (14-36) U/L ALT 20 (4-34) U/L Alkaline Phosphatase 122 (38-126) U/L Total Protein 7.7 (6.3-8.2) g/dL Albumin 3.9 (3.5-5.0) g/dL Disposition Clinical Impression: Closed left hip fracture Disposition: ADMITTED IP TO THIS HOSP Referrals: None,Stated [REFERRING] - 1-2 days Time of Disposition: 09:30
[2021-11-25] MEDS ORDERED: ONDANSETRON 4 MG/2 ML VIAL IVP STA (08:32)
[2021-11-25] MEDS ORDERED: MORPHINE SULFATE 4 MG/ML SYRINGE IV STA (08:32)
[2021-11-25 08:43] LABS: Albumin 3.9 g/dL (3.5-5.0); Calcium 8.9 mg/dL (8.4-10.2); Potassium 3.8 mmol/L (3.5-5.1); Total Bilirubin 0.8 mg/dL (0.2-1.3); Total Protein 7.7 g/dL (6.3-8.2)
[2021-11-25 08:47] LABS: Basophils # (A) 0.1 k/uL (0-0.2); Basophils % (A) 1 %; Eosinophils # (A) 0.5 k/uL (0-0.7); Eosinophils % (A) 5 %; HCT 39.9 % (34.0-46.0); HGB 13.3 gm/dL (11.4-16.0); Lymphocytes # (A) 1.8 k/uL (1.0-4.8); Lymphocytes % (A) 18 %; MCH 29.4 pg (25.0-35.0); MCHC 33.4 g/dL (31.0-37.0); Mean Platelet Volume 7.7; Monocytes # (A) 0.7 k/uL (0-1.0); Monocytes % (A) 7 %; Neutrophils # (A) 6.8 k/uL (1.3-7.7); Neutrophils % (A) 69 %; Platelet Count 361 k/uL (150-450); RBC 4.53 m/uL (3.80-5.40); RDW 13.1 % (11.5-15.5); WBC 9.9 k/uL (3.8-10.6)
[2021-11-25 08:50] LABS: Prothrombin Time 10.7 sec (9.0-12.0)
[2021-11-25 09:06] LABS: Partial Thromboplastin Time 21.6 sec (22.0-30.0)
--- NOTE | 2021-11-25 09:08 | XR ---
EXAMINATION TYPE: XR Hip LT and AP Pelvis DATE OF EXAM: 11/25/2021 COMPARISON: NONE HISTORY: Trauma and pain TECHNIQUE: A single AP view of the pelvis is obtained. Two views of the left hip are obtained. FINDINGS: There is lucency involving the femoral neck on the left with cortical regularity and only minimal displacement, impaction of the femoral head is also noted. There is no evident dislocation. N o frog-leg view. IMPRESSION: There is left hip fracture.
--- NOTE | 2021-11-25 09:10 | XR ---
EXAMINATION TYPE: XR chest 1V portable DATE OF EXAM: 11/25/2021 COMPARISON: Chest x-ray 03/29/2018 HISTORY: Abdominal pain, trauma and fracture TECHNIQUE: Single frontal view of the chest is obtained. FINDINGS: Technique is somewhat apical lordotic and rotated. Aorta is dense. Some minimal scarring is present at the left chest phrenic angle as on prior There is no focal air space opacity, pleural eff usion, or pneumothorax seen. The cardiac silhouette size is within normal limits. The osseous stru ctures are intact. IMPRESSION: No acute process.
[2021-11-25] MEDS ORDERED: NALOXONE 0.4 MG/ML 1 ML VIAL IV PRN (09:31)
[2021-11-25] MEDS ORDERED: ONDANSETRON 4 MG/2 ML VIAL IVP PRN (09:31)
[2021-11-25] MEDS: MORPHINE SULFATE 4 MG/ML SYRINGE IV PRN ×2 (10:32→18:25)
[2021-11-25] MEDS: carvediloL 12.5 MG TAB PO SCH ×2 (10:35→17:55)
[2021-11-25] MEDS: SODIUM CHLORIDE 0.9% 1,000 ML IV SCH ×2 (11:48→17:55)
--- NOTE | 2021-11-25 12:04 | P.CONS ---
History of Present Illness - Reason for Consult Consult date: 11/25/21 Medical management - Chief Complaint Left pain - History of Present Illness Patient is a 65-year-old female with a known history of paroxysmal atrial fibrillation status post ablation currently on aspirin, hypertension, hyperlipidemia, osteoarthritis, history of SVT and anxiety presents to ER status post fall at home about 10:30 PM last night. Patient was playing with her grandson and suddenly her foot hit on to something and fell to the left side. Since then she has been having pain over the side of the left leg. Sharp pain exacerbated with movement and could not walk due to pain. Denied any numbness or tingling sensation or weakness in the leg. Denied any heating her head. Denied any chest pain or shortness of breath. Presents to ER for evaluation. No fever no chills. No dysuria or hematuria. Denied any recent illnesses. Laboratory data. Review of Systems Constitutional: Patient denies any fever or chills . No generalized weakness or weight loss. Abdomen: Patient denied nausea vomiting and diarrhea and abdominal pain. Cardiovascular: Patient denies any chest pain or short of breath no palpitations. Respiratory: patient denied any cough is from production. No shortness of breath Neurologic: Patient denied any numbness or tingling headache. Musculoskeletal: Patient denies any complaints of joint swelling or deformity. Left leg pain Skin: Negative Psychiatric: Negative Endocrine: No heat or cold intolerance. No recent weight gain. Genitourinary: No dysuria or hematuria. All other 14 point ROS negative except the above Past Medical History Past Medical History: Atrial Fibrillation, GERD/Reflux, Hyperlipidemia, Hypertension, Musculoskeletal Disorder, Osteoarthritis (OA), Supraventricular Tachycardia (SVT) Additional Past Medical History / Comment(s): february 2018 possible TIA, but CT was normal. irregular heart beat History of Any Multi-Drug Resistant Organisms: None Reported Past Surgical History: Ablation, Heart Catheterization, Tonsillectomy, Tubal Ligation Additional Past Surgical History / Comment(s): cardiac ablation, implanted leather heel breaster to chest Past Anesthesia/Blood Transfusion Reactions: No Reported Reaction Past Psychological History: Anxiety Past Alcohol Use History: Occasional Past Drug Use History: None Reported - Past Family History Mother Family Medical History: Liver Disease Father Family Medical History: Coronary Artery Disease (CAD), Myocardial Infarction ([place]) Sister(s) Family Medical History: No Reported History, Unable to Obtain Brother(s) Family Medical History: Cancer Daughter(s) Family Medical History: No Reported History Medications and Allergies Home Medications Medication Instructions Recorded Confirmed Type No Known Home Medications 11/25/21 11/25/21 History Allergies Allergy/AdvReac Type Severity Reaction Status Date / Time rice Allergy Anaphylaxis Uncoded 11/25/21 10:03 Physical Exam Vitals: Vital Signs Temp Pulse Resp BP Pulse Ox 11/25/21 10:35 97.6 F 72 14 133/88 93 L 11/25/21 07:56 98 F 85 145/105 97 Intake and Output 11/24/21 11/25/21 11/25/21 22:59 06:59 14:59 Other: Weight 64.41 kg PHYSICAL EXAMINATION: Patient is lying in the bed comfortably, no acute distress, awake alert and oriented.. HEENT: Normocephalic. Neck is supple. Pupils reactive. Nostrils clear. Oral cavity is moist. Neck reveals no JVD, carotid bruits, or thyromegaly. CHEST EXAMINATION: Trachea is central. Symmetrical expansion. Lung olsen clear to auscultation and percussion. CARDIAC: Normal S1, S2 with no gallops. No murmurs ABDOMEN: Soft. Bowel sounds normal. No organomegaly. No abdominal bruits. Extremities: reveal no edema. No clubbing or cyanosis Neurologically awake, alert, oriented x3 with well-coordinated movements. No focal deficits noted Skin: No rash or skin lesions. Psychiatric: Coperative. Nonsuicidal Musculoskeletal: No joint swelling or deformity. Left hip decreased range of motion and tenderness on the lateral aspect.. Results CBC & Chem 7: 11/25/21 08:23 11/25/21 08:23 Labs: Abnormal Lab Results - Last 24 Hours (Table) 11/25/21 11/25/21 Range/Units 08:23 08:23 APTT 21.6 L (22.0-30.0) sec Glucose 116 H (74-99) mg/dL Assessment and Plan Assessment: Left femoral neck fracture. Status post mechanical fall. Paroxysmal atrial fibrillation not on anticoagulation. on aspirin at home. Currently Maintained in sinus rhythm. History of SVT Bryant hypertension Hyperlipidemia Osteoarthritis History of cardiac catheterization Anxiety Occasion alcohol abuse DVT prophylaxis Plan: Patient will be continued on telemetry monitoring. Started back on Coreg and EKG reviewed. Currently maintained in sinus rhythm. Aspirin is on hold for possible surgical procedure today. Currently patient denied any complaints of chest pain or shortness of breath. No headache or dizziness or lightheadedness. No leg swelling. Renal function is stable. Patient be continued on pain management, bowel regimen and DVT prophylaxisas per primary team.. Patient is at low risk for orthopedic surgery at this time. We'll continue to follow and further recommendations based on the clinical course. Thank you for your consult. Time with Patient: Greater than 30
[2021-11-25] MEDS: FAMOTIDINE 20 MG TAB PO SCH (13:38)
--- NOTE | 2021-11-25 14:10 | CT ---
EXAMINATION TYPE: CT hip LT wo con DATE OF EXAM: 11/25/2021 COMPARISON: Plain film same date HISTORY: Left hip fracture CT DLP: 487.5 mGycm Automated exposure control for dose reduction was used. Helical imaging through the left hip. FINDINGS: Patient's left hip fracture is present noted, there is an impaction type fracture with sclerosis, irr egular trabecular lines, cortical lucency is present at the femoral neck. No dislocation. Noted anter iorly and coursing obliquely, medial fracture fragment is minimally displaced. Some subcutaneous timothy a is present. IMPRESSION: LEFT FEMORAL NECK FRACTURE.
--- NOTE | 2021-11-25 18:23 | P.HPOR ---
History of Present Illness H&P Date: 11/25/21 This patient is a 65- year old female with a past medical history of atrial fibrillation status-post ablation currently on aspirin, hypertension, hyperlipidemia that presented to [facility] emergency department on 11/25/21 with complaints of left hip pain following a fall at home. Patient stat es she was playing with her grandson last evening and fell onto the left hip. Patient has been experiencing left hip pain since the fall. She cannot ambulate due to the pain. EMS transported the patient to the ED this morning. X-rays in the emergency department revealed a left hip fracture. Patient was admitted under the care of Dr. Bond with a consult placed to internal medicine for pre-operative medical clearance. Patient is seen and examined bedside in the ED with Dr. Bond. She is co mplaining of isolated left hip pain. She has no additional complaints. Vital signs stable. Past Medical History Past Medical History: Atrial Fibrillation, GERD/Reflux, Hyperlipidemia, Hypertension, Musculoskeletal Disorder, Osteoarthritis (OA), Supraventricular Tachycardia (SVT) Additional Past Medical History / Comment(s): february 2018 possible TIA, but CT was normal. irregular heart beat History of Any Multi-Drug Resistant Organisms: None Reported Past Surgical History: Ablation, Heart Catheterization, Tonsillectomy, Tubal Ligation Additional Past Surgical History / Comment(s): cardiac ablation, implanted surveillance system monitor to chest Past Anesthesia/Blood Transfusion Reactions: No Reported Reaction Past Psychological History: Anxiety Smoking Status: Never smoker Past Alcohol Use History: Occasional Past Drug Use History: None Reported - Past Family History Mother Family Medical History: Liver Disease Father Family Medical History: Coronary Artery Disease (CAD), Myocardial Infarction ([place]) Sister(s) Family Medical History: No Reported History, Unable to Obtain Brother(s) Family Medical History: Cancer Daughter(s) Family Medical History: No Reported History Medications and Allergies Home Medications Medication Instructions Recorded Confirmed Type No Known Home Medications 11/25/21 11/25/21 History Allergies Allergy/AdvReac Type Severity Reaction Status Date / Time rice Allergy Anaphylaxis Uncoded 11/25/21 10:03 Physical Examination On examination, patient is sitting up in bed in no apparent distress. She is alert and oriented x3. Her head appears normocephalic and atraumatic. Her breathing appears non-labored. On inspection of the bilateral upper extremities, there are no obvious deformities or signs of trauma. On inspection of her right lower extremity, no obvious deformities or signs of trauma. On inspection of the left hip, there are no lacerations or open wounds. Severe pain with any attempts at [id number] of the left hip. Motor and sensory function intact left lower extremity. Left lower extremity warm and well perfused. Results Left hip and pelvis x-ray 11/25/21: Left femoral neck fracture with distal extension to intertrochanteric region. - Labs Labs: Abnormal Lab Results - Last 24 Hours (Table) 11/25/21 11/25/21 Range/Units 08:23 08: APTT 21.6 L (22.0-30.0) sec Glucose 116 H (74-99) mg/dL H & H 11/25/21 Range/Units 08:23 Hgb 13.3 (11.4-16.0) gm/dL Hct 39.9 (34.0-46.0) % Coagulation 11/25/21 Range/Units 08:23 INR 1.0 (<1.2) Result Diagrams: 11/25/21 08:23 11/25/21 08:23 Assessment and Plan Assessment: Left femoral neck fracture Plan: - The patient was evaluated with Dr. Bond this morning. Patient will require surgical fixation of her left hip fracture. CT scan of the left hip has been ordered for further surgical planning. Surgical options were discussed with the patient. We will plan for OR tomorrow morning. - Bedrest. Strict non-weight bearing left lower extremity. - Pain management as needed. - Internal medicine has been consulted for pre-operative medical clearance. - NPO diet at midnight.
[2021-11-25] MEDS ORDERED: FAMOTIDINE 20 MG TAB PO SCH (21:00)
[2021-11-25] MEDS: TEMAZEPAM 15 MG CAP PO PRN (21:24)
[2021-11-25] MEDS: ATORVASTATIN 40 MG TAB PO SCH (21:24)
[2021-11-26] MEDS: SODIUM CHLORIDE 0.9% 1,000 ML IV SCH ×3 (04:41→15:14)
[2021-11-26] MEDS: MORPHINE SULFATE 4 MG/ML SYRINGE IV PRN (04:45)
[2021-11-26] MEDS ORDERED: TRANEXAMIC ACID 1,000 MG in SODIUM CHLORIDE 0.9% 100 ML IVPB ONE ×4 (07:33)
[2021-11-26] MEDS: FAMOTIDINE 20 MG TAB PO SCH (07:36)
[2021-11-26] MEDS: TAMSULOSIN 0.4 MG CAP.ER.24H PO SCH (07:36)
--- NOTE | 2021-11-26 07:58 | P.PN ---
Progress Note - Text Progress Note Date: 11/26/21 I had a long discussion this morning with Ms. Wade on her left hip fracture and treatment options. Her x-rays and computed tomography scan show a very minimally displaced, but vertical subcapital femoral neck fracture with an inferior fracture fragment that extends down to the lesser trochanter. On the computed tomography scan the superior neck is impacted and minimally displaced and there is a minimally displaced vertical fracture fragment extending down to the femoral lesser trochanter. I offered to treatment options. The first was in situ cannulated screw fixation. We discussed the advantages of this would be maintaining her sokaogon hip and a less involved surgery. The downside to this approach would be the risk for nonunion or collapse with later conversion to total hip arthroplasty. We also discussed performing a total hip arthroplasty today. We discussed the advantages of this would be definitive fixation and early full weightbearing. The downside would be risks from a total hip arthroplasty for femoral neck fracture including increased risk of dislocation and the other risks associated with a total hip arthroplasty. The patient was adamant that she did not want a total hip replacement and wished to proceed with open reduction and internal fixation. She understands the potential complications and limitations of this, particularly hardware failure, collapse, nonunion, and the potential for conversion to total hip replacement if any of these occur. She also understands that she will remain toe-touch weightbearing for 4-6 weeks. Again I outlined both treatment options at length with the patient and her wishes were to proceed with in situ screw fixation due to apprehension of having a total hip replacement. I think that this is reasonable since she voiced her understanding of the complications and we had a detailed conversation on both treatment options in the ER yesterday and this morning at bedside.
[2021-11-26] MEDS ORDERED: PROPOFOL 10 MG/ML 20 ML VIAL IV ONE (08:11)
[2021-11-26] MEDS ORDERED: DEXAMETHASONE SOD PHOSPHATE 10 MG/ML 1 ML VIAL ONE (08:11)
[2021-11-26] MEDS ORDERED: KETAMINE 10 MG/ML 20 ML VIAL ONE (08:11)
[2021-11-26] MEDS ORDERED: ONDANSETRON 4 MG/2 ML VIAL ONE (08:11)
[2021-11-26] MEDS ORDERED: MIDAZOLAM 2 MG/2 ML VIAL ONE (08:11)
[2021-11-26] MEDS ORDERED: fentaNYL (PF) 50 MCG/ML 2 ML AMP ONE (08:11)
[2021-11-26] MEDS ORDERED: IV FLUID CONTINUATION 500 ML IV ONE (08:14)
[2021-11-26] MEDS ORDERED: SODIUM CHLORIDE 0.9% 100 ML with ceFAZolin 2,000 MG IV ONE ×2 (08:26)
[2021-11-26] MEDS: carvediloL 12.5 MG TAB PO SCH ×2 (08:41→15:35)
[2021-11-26] MEDS ORDERED: LACTATED RINGERS 1,000 ML IV ONE (09:24)
[2021-11-26] MEDS ORDERED: BUPIVACAIN-EPI 0.25%-1:200,000 30 ML VIAL SQ ONE (09:30)
[2021-11-26] MEDS ORDERED: HYDROmorphone 1 MG/ML 1 ML SYRINGE IVP PRN ×3 (09:40)
[2021-11-26] MEDS ORDERED: HYDROcodone/APAP 5-325MG 1 EACH TAB PO PRN (09:40)
--- NOTE | 2021-11-26 09:45 | FL ---
Fluoroscopy HISTORY: Hip fracture 68 seconds fluoroscopy time supplied to the referring clinician. 3 intraoperative C-arm images docum ent the procedure. See dictated report from orthopedic surgery.
--- NOTE | 2021-11-26 09:51 | P.OP ---
Date of Procedure: 11/26/21 Preoperative Diagnosis: 1. Left minimally displaced and impacted subcapital femoral neck fracture Postoperative Diagnosis: Same Procedure(s) Performed: In situ screw fixation of left femoral neck fracture Anesthesia: spinal Surgeon: Will Bond [employer] Driver #1: Lupe Olvera Estimated Blood Loss (ml): 20 IV fluids (ml): 600 Pathology: none sent Condition: stable Disposition: PACU Indications for Procedure: The patient is a relatively healthy and very pleasant 65-year-old female who sustained a ground-level fall yesterday resulting in an isolated left hip injury. She was brought to the emergency department where x-rays and a computed tomography scan showed a minimally displaced valgus impacted femoral neck fracture on her left hip. I met with the patient both in the emergency department and on the floor to discuss treatment options. Her fracture is minimally displaced superiorly, but there is vertical rotation the fracture fragment with a minimally displaced fragment extending distally to just above the lesser trochanter. There is minimal displacement on the computed tomography scan and the posterior tilt angle is 0. I discussed 2 different treatment options with her. We discussed in situ cannulated screw fixation versus a total hip arthroplasty. We discussed the pros and cons of both at length. The patient was adamant that she did not want to proceed with a total hip replacement and would like an attempted open reduction internal fixation. Since the fracture is minimally displaced both on x-ray and CT and the posterior tilt angle is between 0 and 20 I think that this is reasonable. She voiced her understanding of the potential for nonunion or collapse and later conversion to total hip replacement. She was seen and cleared by internal medicine. We discussed the potential risks and Locations of surgery including but certainly not limited to risks from anesthesia, superficial infection, deep infection, damage to local blood vessels or nerves, nonunion, malunion, collapse, sympto matically hardware, progression of hip arthritis, need for further surgery including conversion to total hip replacement, DVT, PE, other medical complications, earlier to thrive, and inability to regain preinjury level of function, the satisfaction of surgical outcome, and possibly loss of life or limb. All the patient's questions were answered and she provided both her verbal and written consent to go forward with surgery. Description of Procedure: The patient was identified in preoperative holding and the correct left leg was marked with my initials. I reviewed the consent form with the patient and all of her questions were answered. The patient was then brought back to the operating room. While still on the gurney a spinal anesthetic preoperative antibiotics were given. Boots for the [place] table were applied while on the gurney. The patient was then carefully transferred onto the hand table. A perineal post was placed immediately. The left arm was draped across the chest and secured with a pillow and tape. The right arm was placed on a well-padded arm marcano. The right leg was dropped and abductor to facilitate imaging. Nonsterile drapes were applied. A timeout was performed identifying the correct patient, operative extremity, and procedure. At this point fluoroscopy was brought in prior to prepping and draping to verify the correct images could be obtained and the fracture was still relatively well reduced. The affected left leg was gently adducted and internally rotated. Orthogonal fluoroscopic views were obtained and showed minimal displacement. The left leg was then prepped and draped in the standard sterile fashion. I began by making a 3 cm incision over the lateral aspect of the proximal femur. Skin incision was made to scalpel and dissection was carried down to the subcutaneous tissue with electrocautery. The IT band was incised sharply. I then bluntly dissected through the vastus down the lateral cortex of the femur. A guidepin was then placed for a cannulated screw at the level of the lesser trochanter and lateral to the inferior neck. The guidepin was driven into the low center position of the femoral head on both the AP and lateral view. Once the position of the guidepin was verified to be correct the Tremayne gun was used to place the superior to guidepins. The guidepins were then measured and the lateral cortex was opened with a drill. I placed a partially threaded screw inferiorly with a washer to generate compression across the fracture site. I then placed 2 fully threaded screws superiorly. The guidepins were removed and final fluoroscopic images were taken showing adequate reduction of the fracture and position of the screws on orthogonal fluoroscopic views. The wound was then thoroughly irrigated. Local anesthetic was infiltrated in the soft tissues around the hip. The incision was then closed in layers. A sterile dressing was applied. I verified that all instrument, sponge, and sharp counts were correct. The patient was then carefully transferred off of the Palmer table to recovery having tolerated procedure well. Lupe Olvera PA-C was required as a skilled specimen preparation assistant for patient positioning, retraction, placement of hardware, closure of wound, application of dressing, and mobilization of patient. Plan: The patient is to remain toe-touch weightbearing with a walker on her left leg. She will need 2 doses of postoperative antibiotics. Due to preoperative risk stratification she will be treated with aspirin 81 mg twice a day and early mobilization for DVT prophylaxis. We will check a 25 hydroxy vitamin D level in an attempt to optimize her bone health. She will need follow-up in the office in 2 weeks at which point she will need nonweightbearing x-rays of the hip, AP and lateral.
[2021-11-26 12:45] LABS: Basophils # (A) 0.1 k/uL (0-0.2); Basophils % (A) 0 %; Eosinophils # (A) 0.2 k/uL (0-0.7); Eosinophils % (A) 1 %; HCT 38.2 % (34.0-46.0); HGB 12.1 gm/dL (11.4-16.0); Hypochromasia Slight; Lymphocytes % (A) 7 %; MCH 29.1 pg (25.0-35.0); MCHC 31.6 g/dL (31.0-37.0); Mean Platelet Volume 7.7; Monocytes # (A) 0.2 k/uL (0-1.0); Monocytes % (A) 1 %; Neutrophils % (A) 90 %; Platelet Count 277 k/uL (150-450); RBC 4.15 m/uL (3.80-5.40); RDW 12.7 % (11.5-15.5); WBC 14.4 k/uL (3.8-10.6)
[2021-11-26] MEDS: HYDROcodone/APAP 5-325MG 1 EACH TAB PO PRN ×2 (13:35→18:42)
[2021-11-26] MEDS ORDERED: ERGOCALCIFEROL 1,250 MCG (50,000 IU) CAPSULE PO SCH (18:00)
[2021-11-26] MEDS: ASPIRIN 81 MG PO SCH (21:53)
[2021-11-26] MEDS: SENNOSIDES-DOCUSATE SODIUM 1 EACH TAB PO SCH (21:53)
[2021-11-26] MEDS: ATORVASTATIN 40 MG TAB PO SCH (21:53)
--- NOTE | 2021-11-26 22:24 | P.PN ---
Subjective Progress Note Date: 11/26/21 Principal diagnosis: in situ screw fixation of left femoral neck fracture Patient is a 65-year-old female with a known history of paroxysmal atrial fibrillation status post ablation currently on aspirin, hypertension, hyperlipidemia, osteoarthritis, history of SVT and anxiety presents to ER status post fall at home about 10:30 PM last night. Patient was playing with her gran dson and suddenly her foot hit on to something and fell to the left side. Since then she has been having pain over the side of the left leg. Sharp pain exacerbated with movement and could not walk due to pain. Denied any numbness or tingling sensation or weakness in the leg. Denied any heating her head. Denied any chest pain or shortness of breath. Presents to ER for evaluation. No fever no chills. No dysuria or hematuria. Denied any recent illnesses. 11/26/2021 Patient was admitted to hospital status post fall and impacted subcapital left femoral neck fracture. Patient underwent in situ screw fixation of left femoral neck fracture by orthopedic surgery. Currently pain is controlled. Denies any complaints of chest pain or shortness breath. No nausea or vomiting or abdominal pain or diarrhea. Patient was started on aspirin for DVT prophylaxis. Blood pressure is better controlled. Laboratory data showed WBC 14.4 hemoglobin 12.1 and platelets 277 Vitamin D level is 6.1. Patient was started on vitamin D supplementation. Current medications reviewed. Objective - Vital Signs Vital signs: Vital Signs Temp 97.6 F 11/26/21 15:08 Pulse 82 11/26/21 15:00 Resp 16 11/26/21 15:00 BP 138/58 11/26/21 15:00 Pulse Ox 95 11/26/21 15:00 Intake & Output 11/25/21 11/26/21 11/26/21 18:59 06:59 18:59 Intake Total 700 Output Total 200 45 Balance -200 655 Weight 64.41 kg Intake: IV 700 Output: Urine 200 25 Estimated Blood Loss 20 Other: Voiding Method Indwelling Catheter Indwelling Catheter - Exam PHYSICAL EXAMINATION: Patient is lying in the bed comfortably, no acute distress, awake alert and humberto ented.. HEENT: Normocephalic. Neck is supple. Pupils reactive. Nostrils clear. Oral cavity is moist. Neck reveals no JVD, carotid bruits, or thyromegaly. CHEST EXAMINATION: Trachea is central. Symmetrical expansion. Lung olsen clear to auscultation and percussion. CARDIAC: Normal S1, S2 with no gallops. No murmurs ABDOMEN: Soft. Bowel sounds normal. No organomegaly. No abdominal bruits. Extremities: reveal no edema. No clubbing or cyanosis Neurologically awake, alert, oriented x3 with well-coordinated movements. No focal deficits noted Skin: No rash or skin lesions. Psychiatric: Coperative. Nonsuicidal Musculoskeletal: No joint swelling or deformity. Left hip decreased range of m otion and tenderness on the lateral aspect..Surgical site intact. - Labs CBC & Chem 7: 11/26/21 12:15 11/25/21 08:23 Labs: Abnormal Lab Results - Last 24 Hours (Table) 11/26/21 Range/Units 12:15 WBC 14.4 H (3.8-10.6) k/uL Neutrophils # 13.0 H (1.3-7.7) k/uL Assessment and Plan Assessment: Left femoral neck fracture. Status post mechanical fall. s/p in situ screw fixation of left femoral neck fracture. POD 0 Paroxysmal atrial fibrillation not on anticoagulation. on aspirin at home. Currently Maintained in sinus rhythm. History of SVT Bryant hypertension Hyperlipidemia Osteoarthritis History of cardiac catheterization Anxiety Occasion alcohol abuse DVT prophylaxis Plan: Patient will be continued on telemetry monitoring. Started back on Coreg and EKG reviewed. Currently maintained in sinus rhythm. Patient be continued on pain management, bowel regimen and DVT prophylaxis as per primary team.. We'll continue to follow and further recommendations based on the clinical course.
[2021-11-27] MEDS: HYDROcodone/APAP 5-325MG 1 EACH TAB PO PRN ×4 (01:12→22:29)
[2021-11-27] MEDS ORDERED: NITROGLYCERIN SL TABS 0.4 MG TAB SUBLINGUAL PRN (02:35)
[2021-11-27] MEDS ORDERED: NITROGLYCERIN SL TABS 0.4 MG TAB SUBLINGUAL ONE (02:48)
[2021-11-27] MEDS: SODIUM CHLORIDE 0.9% 1,000 ML IV SCH ×2 (04:55→15:57)
[2021-11-27] MEDS: ASPIRIN 81 MG PO SCH ×2 (08:08→22:30)
[2021-11-27] MEDS: TAMSULOSIN 0.4 MG CAP.ER.24H PO SCH (08:08)
[2021-11-27] MEDS: carvediloL 12.5 MG TAB PO SCH ×2 (08:08→17:29)
[2021-11-27] MEDS: FAMOTIDINE 20 MG TAB PO SCH (08:08)
[2021-11-27] MEDS: CHOLECALCIFEROL 25 MCG (1000 IU) TABLET PO SCH (08:08)
--- NOTE | 2021-11-27 08:38 | P.PN ---
Subjective Progress Note Date: 11/27/21 Chest pain overnight that has since resolved. Troponins ordered by IM (NEG). c/o mild left hip pain. Denies CP/SOB at time of my evaluation. Objective - Vital Signs Vital signs: Vital Signs Temp 97.7 F 11/27/21 02:23 Pulse 67 11/27/21 02:23 Resp 18 11/27/21 02:23 BP 146/80 11/27/21 02:23 Pulse Ox 96 11/27/21 02:23 Intake & Output 11/26/21 11/27/21 11/27/21 18:59 06:59 18:59 Intake Total 700 1100 Output Total 345 275 Balance 355 825 Intake: IV 700 Intake, IV Titration 800 Amount Sodium Chloride 0.9% 1, 750 000 ml @ 75 mls/hr IV . [id number] [facility] Rx#:[id number] ceFAZolin 2 gm In Sodium 50 Chloride 0.9% 50 ml @ 100 mls/hr IVPB Q8HR [facility] Rx# :[id number] Oral 300 Output: Urine 325 275 Estimated Blood Loss 20 Other: Voiding Method Indwelling Catheter Indwelling Catheter - Exam Patient resting comfortably in bed. Focused exam of the left LE shows an intact dressing with no drainage. Thigh/calf soft. Moves toes/ankles up/down. - Labs CBC & Chem 7: 11/26/21 12:15 11/25/21 08:23 Labs: Abnormal Lab Results - Last 24 Hours (Table) 11/26/21 11/26/21 11/27/21 Range/Units 12:15 12:15 02:52 WBC 14.4 H (3.8-10.6) k/uL Neutrophils # 13.0 H (1.3-7.7) k/uL D-Dimer 1.23 H (<0.60) mg/L FEU Vitamin D 25-Hydroxy 6.1 L (30.0-100.0) ng/mL Assessment and Plan Assessment: POD #1 s/p in situ screw fixation of impacted femoral neck fracture, vitamin D deficiency. Plan: 1. TTWB left LE with walker 2. PT/OT - mobilize patient 3. DVT prophylaxis with ASA 81 bid x 4 weeks 4. Bone health - vitamin d2 50,000 q 72 hours x 3 months and vitamin d3 2000 units daily 5. IM for periop med management 6. Discharge planning in process
[2021-11-27] MEDS: SENNOSIDES-DOCUSATE SODIUM 1 EACH TAB PO SCH (22:30)
[2021-11-27] MEDS: ATORVASTATIN 40 MG TAB PO SCH (22:30)
--- NOTE | 2021-11-27 22:41 | P.PN ---
Subjective Progress Note Date: 11/27/21 Principal diagnosis: in situ screw fixation of left femoral neck fracture Patient is a 65-year-old female with a known history of paroxysmal atrial fibrillation status post ablation currently on aspirin, hypertension, hyperlipidemia, osteoarthritis, history of SVT and anxiety presents to ER status post fall at home about 10:30 PM last night. Patient was playing with her gran dson and suddenly her foot hit on to something and fell to the left side. Since then she has been having pain over the side of the left leg. Sharp pain exacerbated with movement and could not walk due to pain. Denied any numbness or tingling sensation or weakness in the leg. Denied any heating her head. Denied any chest pain or shortness of breath. Presents to ER for evaluation. No fever no chills. No dysuria or hematuria. Denied any recent illnesses. 11/26/2021 Patient was admitted to hospital status post fall and impacted subcapital left femoral neck fracture. Patient underwent in situ screw fixation of left femoral neck fracture by orthopedic surgery. Currently pain is controlled. Denies any complaints of chest pain or shortness breath. No nausea or vomiting or abdominal pain or diarrhea. Patient was started on aspirin for DVT prophylaxis. Blood pressure is better controlled. Laboratory data showed WBC 14.4 hemoglobin 12.1 and platelets 277 Vitamin D level is 6.1. Patient was started on vitamin D supplementation. 11/27/2021 Patient is currently resting in bed. Awake alert and oriented. Complains of left hip pain. Denied any complaints of chest pain. No chest shortness of breath. No nausea vomiting abdominal pain. Patient is tolerating oral diet. Did not have any bowel movement today. Overnight patient did complain of chest pain. Troponin x3 -. PT OT is on board. Current medications reviewed. Objective - Vital Signs Vital signs: Vital Signs Temp 97.5 F L 11/27/21 20:00 Pulse 74 11/27/21 20:00 Resp 17 11/27/21 20:00 BP 161/91 11/27/21 20:00 Pulse Ox 93 L 11/27/21 20:00 Intake & Output 11/27/21 11/27/21 11/28/21 06:59 18:59 06:59 Intake Total 1100 1080 Output Total 275 1 Balance 825 1079 Intake: Intake, IV Titration 800 Amount Sodium Chloride 0.9% 1, 750 000 ml @ 75 mls/hr IV . [id number] [facility] Rx#:[id number] ceFAZolin 2 gm In Sodium 50 Chloride 0.9% 50 ml @ 100 mls/hr IVPB Q8HR [facility] Rx# :[id number] Oral 300 1080 Output: Urine 275 Stool 1 Other: Voiding Method Indwelling Catheter Indwelling Catheter # Voids 4 - Exam PHYSICAL EXAMINATION: Patient is lying in the bed comfortably, no acute distress, awake alert and oriented.. HEENT: Normocephalic. Neck is supple. Pupils reactive. Nostrils clear. Oral cavity is moist. Neck reveals no JVD, carotid bruits, or thyromegaly. CHEST EXAMINATION: Trachea is central. Symmetrical expansion. Lung olsen clear to auscultation and percussion. CARDIAC: Normal S1, S2 with no gallops. No murmurs ABDOMEN: Soft. Bowel sounds normal. No organomegaly. No abdominal bruits. Extremities: reveal no edema. No clubbing or cyanosis Neurologically awake, alert, oriented x3 with well-coordinated movements. No focal deficits noted Skin: No rash or skin lesions. Psychiatric: Coperative. Nonsuicidal Musculoskeletal: No joint swelling or deformity. Left hip decreased range of motion and tenderness on the lateral aspect..Surgical site intact. - Labs CBC & Chem 7: 11/26/21 12:15 11/25/21 08:23 Labs: Abnormal Lab Results - Last 24 Hours (Table) 11/27/21 Range/Units 02:52 D-Dimer 1.23 H (<0.60) mg/L FEU Assessment and Plan Assessment: Left femoral neck fracture. Status post mechanical fall. s/p in situ screw fixation of left femoral neck fracture. POD 1 Paroxysmal atrial fibrillation not on anticoagulation. on aspirin at home. Currently Maintained in sinus rhythm. History of SVT hypertension Hyperlipidemia Osteoarthritis History of cardiac catheterization Anxiety Occasion alcohol abuse DVT prophylaxis Plan: Patient will be continued on telemetry monitoring. Started back on Coreg and EKG reviewed. Currently maintained in sinus rhythm. Patient be continued on pain management, bowel regimen and DVT prophylaxis as per primary team.. We'll continue to follow and further recommendations based on the clinical course. Time with Patient: Greater than 30
[2021-11-28] MEDS: SODIUM CHLORIDE 0.9% 1,000 ML IV SCH (05:13)
[2021-11-28] MEDS: FAMOTIDINE 20 MG TAB PO SCH (08:16)
[2021-11-28] MEDS: TAMSULOSIN 0.4 MG CAP.ER.24H PO SCH (08:16)
[2021-11-28] MEDS: carvediloL 12.5 MG TAB PO SCH ×2 (08:16→15:55)
[2021-11-28] MEDS: HYDROcodone/APAP 5-325MG 1 EACH TAB PO PRN ×2 (08:17→20:39)
[2021-11-28] MEDS: ASPIRIN 81 MG PO SCH ×2 (08:17→20:39)
[2021-11-28] MEDS: CHOLECALCIFEROL 25 MCG (1000 IU) TABLET PO SCH (08:17)
[2021-11-28 09:18] LABS: Basophils # (A) 0.05 X 10*3/uL (0.00-0.10); Basophils % (A) 0.4 %; Eosinophils % (A) 2.7 %; HCT 35.2 % (37.2-46.3); HGB 10.7 g/dL (12.0-15.0); Immature Grans, Automated 0.4 %; Lymphocytes # (A) 2.39 X 10*3/uL (0.90-5.00); Lymphocytes % (A) 21.1 %; MCH 27.9 pg (27.0-32.0); MCHC 30.4 g/dL (32.0-37.0); MCV 91.9 fL (80.0-97.0); Mean Platelet Volume 11.3 fL (9.5-12.2); Monocytes # (A) 0.84 X 10*3/uL (0.20-1.00); Monocytes % (A) 7.4 %; NRBC Per 100 WBC 0 /100 WBCS (0.0-0.0); Neutrophils # (A) 7.69 X 10*3/uL (1.80-7.70); Platelet Count 306 X 10*3/uL (140-440); RBC 3.83 X 10*6/uL (4.10-5.20); RDW 13.2 % (11.5-14.5); WBC 11.31 X 10*3/uL (4.50-10.00)
[2021-11-28] MEDS ORDERED: ALPRAZolam 0.25 MG TAB PO STA (11:43)
--- NOTE | 2021-11-28 13:00 | CT ---
EXAMINATION TYPE: CT angio chest DATE OF EXAM: 11/28/2021 COMPARISON: NONE HISTORY: Shortness of breath. Elevated d-dimer, left hip fracture with recent surgery. CT DLP: 300.4 mGycm. Automated Exposure Control for Dose Reduction was Utilized. CONTRAST: CTA scan of the thorax is performed with IV Contrast, patient injected with 80 mL of Isovue 370, pulm onary embolism protocol. MIP Images are created on CT scanner and reviewed. FINDINGS: LUNGS: There is small to tiny right pleural effusion. There is trace left-sided pleural effusion. Few scattered areas of groundglass opacities throughout the right lung. Mild interstitial edema. No pneu mothorax seen bilaterally. MEDIASTINUM: There is satisfactory enhancement of the pulmonary artery and its branches, there is no CT evidence for pulmonary embolism. Prominent main pulmonary artery of 3.6 cm raises concern for unde rlying pulmonary artery hypertension. Early branching of the main pulmonary artery is present There are no greater than 1 cm hilar or mediastinal lymph nodes. No cardiomegaly or pericardial effusion is seen. OTHER: Exaggerated kyphosis upper to mid thoracic spine. Mild multilevel anterior spurring. IMPRESSION: No CT evidence for acute pulmonary embolism. Small to tiny right greater than left pleura l effusions. Mild interstitial edema with areas of mild alveolar edema right lung are present. Suspec t product of desired fluid overload state. Areas of developing acute infiltrate right lung not exclud ed but felt less likely.
[2021-11-28] MEDS ORDERED: FUROSEMIDE 10 MG/ML 2 ML VIAL IV ONE (14:00)
--- NOTE | 2021-11-28 14:23 | P.PN ---
Subjective Progress Note Date: 11/28/21 This patient is a 65- year old female who is status-post in situ screw fixation of left femoral neck fracture on 11/26/21. Patient is seen and examined bedside. Today is post-operative day #2. Patient complains of chest tightness and shortness of breath. Troponins obtained on 11/27/21 were negative. Patient states her pain is well-controlled. No additional complaints. Objective - Vital Signs Vital signs: Vital Signs Temp 97.8 F 11/28/21 08:00 Pulse 76 11/28/21 08:00 Resp 17 11/28/21 08:00 BP 182/100 11/28/21 08:00 Pulse Ox 97 11/28/21 08:00 Intake & Output 11/27/21 11/28/21 11/28/21 18:59 06:59 18:59 Intake Total 1080 1500 Output Total 1 Balance 1079 1500 Intake: Oral 1080 1500 Output: Stool 1 Other: Voiding Method Indwelling Catheter Toilet Toilet # Voids 4 2 - Exam on examination, patient is sitting up in bed in no apparent distress. She states she is short of breath. Her pulse ox is 98% on room air at the time of my exam. On inspection of her right hip, there is a clean, dry, intact surgical dressing in place. No bleeding or drainage to the dressing. There is mild swelling of the thigh, thigh is soft and compressible. She has good strength and [id number] of the right ankle. Motor and sensory function is intact of the right lower extremity. Right lower extremity is warm and well perfused with brisk capillary refill distally. Calves are soft and nontender to palpation bilaterally. - Labs CBC & Chem 7: 11/28/21 04:13 11/25/21 08:23 Labs: Abnormal Lab Results - Last 24 Hours (Table) 11/28/21 Range/Units 04:13 WBC 11.31 H (4.50-10.00) X 10*3/uL RBC 3.83 L (4.10-5.20) X 10*6/uL Hgb 10.7 L (12.0-15.0) g/dL Hct 35.2 L (37.2-46.3) % MCHC 30.4 L (32.0-37.0) g/dL Assessment and Plan Assessment: In situ screw fixation of left femoral neck fracture on 11/26/21. Post-operative day #2. Plan: - Toe-touch weightbearing on operative extremity with a walker. - Physical therapy for gait and balance training. - Keep operative dressings intact. - Pain management as needed. - Aspirin 81 mg twice a day for DVT prophylaxis. - Internal medicine has been consulted for patient's chest tightness and shortness of breath. Chest CTA has been ordered. - Case management consulted for discharge planning. Anticipate discharge home with home health care tomorrow if medically cleared.
[2021-11-28] MEDS: SENNOSIDES-DOCUSATE SODIUM 1 EACH TAB PO SCH (20:39)
[2021-11-28] MEDS: ATORVASTATIN 40 MG TAB PO SCH (20:40)
[2021-11-28] MEDS: hydrOXYzine pamoate 25 MG CAP PO PRN (22:07)
[2021-11-28] MEDS: TEMAZEPAM 15 MG CAP PO PRN (22:07)
--- NOTE | 2021-11-28 23:06 | P.PN ---
Subjective Progress Note Date: 11/28/21 Principal diagnosis: in situ screw fixation of left femoral neck fracture Patient is a 65-year-old female with a known history of paroxysmal atrial fibrillation status post ablation currently on aspirin, hypertension, hyperlipidemia, osteoarthritis, history of SVT and anxiety presents to ER status post fall at home about 10:30 PM last night. Patient was playing with her gran dson and suddenly her foot hit on to something and fell to the left side. Since then she has been having pain over the side of the left leg. Sharp pain exacerbated with movement and could not walk due to pain. Denied any numbness or tingling sensation or weakness in the leg. Denied any heating her head. Denied any chest pain or shortness of breath. Presents to ER for evaluation. No fever no chills. No dysuria or hematuria. Denied any recent illnesses. 11/26/2021 Patient was admitted to hospital status post fall and impacted subcapital left femoral neck fracture. Patient underwent in situ screw fixation of left femoral neck fracture by orthopedic surgery. Currently pain is controlled. Denies any complaints of chest pain or shortness breath. No nausea or vomiting or abdominal pain or diarrhea. Patient was started on aspirin for DVT prophylaxis. Blood pressure is better controlled. Laboratory data showed WBC 14.4 hemoglobin 12.1 and platelets 277 Vitamin D level is 6.1. Patient was started on vitamin D supplementation. 11/27/2021 Patient is currently resting in bed. Awake alert and oriented. Complains of left hip pain. Denied any complaints of chest pain. No chest shortness of breath. No nausea vomiting abdominal pain. Patient is tolerating oral diet. Did not have any bowel movement today. Overnight patient did complain of chest pain. Troponin x3 -. PT OT is on board. 11/28/2021 Patient is currently lying in the bed. Awake alert and oriented x3. Postopera tive day 2. Patient has been complaining of chest tightness and shortness of breath. Due to elevated D-dimer level CT angiogram was done. Ruled out PE and showed vascular congestion and possible fluid overload. Patient was given a dose of IV Lasix and IV fluids on hold and increase oral intake. Patient is being continued on PT OT. Afebrile. No nausea vomiting or abdominal pain or diarrhea. Laboratory showed WBC count improved to 11.3 and hemoglobin 10.7 and platelets 306. Current medications reviewed. Objective - Vital Signs Vital signs: Vital Signs Temp 97.8 F 11/28/21 08:00 Pulse 76 11/28/21 08:00 Resp 17 11/28/21 08:00 BP 182/100 11/28/21 08:00 Pulse Ox 97 11/28/21 08:00 Intake & Output 11/27/21 11/28/21 11/28/21 18:59 06:59 18:59 Intake Total 1080 1500 Output Total 1 Balance 1079 1500 Intake: Oral 1080 1500 Output: Stool 1 Other: Voiding Method Indwelling Catheter Toilet # Voids 4 2 - Exam PHYSICAL EXAMINATION: Patient is lying in the bed comfortably, no acute distress, awake alert and oriented.. HEENT: Normocephalic. Neck is supple. Pupils reactive. Nostrils clear. Oral cavity is moist. Neck reveals no JVD, carotid bruits, or thyromegaly. CHEST EXAMINATION: Trachea is central. Symmetrical expansion. Lung olsen clear to auscultation and percussion. CARDIAC: Normal S1, S2 with no gallops. No murmurs ABDOMEN: Soft. Bowel sounds normal. No organomegaly. No abdominal bruits. Extremities: reveal no edema. No clubbing or cyanosis Neurologically awake, alert, oriented x3 with well-coordinated movements. No focal deficits noted Skin: No rash or skin lesions. Psychiatric: Coperative. Nonsuicidal Musculoskeletal: No joint swelling or deformity. Left hip decreased range of motion and tenderness on the lateral aspect..Surgical site intact. - Labs CBC & Chem 7: 11/28/21 04:13 11/25/21 08:23 Labs: Abnormal Lab Results - Last 24 Hours (Table) 11/28/21 Range/Units 04:13 WBC 11.31 H (4.50-10.00) X 10*3/uL RBC 3.83 L (4.10-5.20) X 10*6/uL Hgb 10.7 L (12.0-15.0) g/dL Hct 35.2 L (37.2-46.3) % MCHC 30.4 L (32.0-37.0) g/dL Assessment and Plan Assessment: Left femoral neck fracture. Status post mechanical fall. s/p in situ screw fixation of left femoral neck fracture. POD 2 Chest tightness. Rule out PE. Likely due to vascular congestion and fluid load. Troponin x3 -. anxiety Paroxysmal atrial fibrillation not on anticoagulation. s/p ablation in 2014. on aspirin at home. Currently Maintained in sinus rhythm. History of SVT hypertension Hyperlipidemia Osteoarthritis History of cardiac catheterization Anxiety Occasion alcohol abuse DVT prophylaxis Plan: Patient will be continued on telemetry monitoring. Started back on Coreg and EKG reviewed. Currently maintained in sinus rhythm. Monitor blood pressure and add PEACE inhibitor if not controlled well. Patient was given a dose of IV Lasix 20 mg x 1. Patient be continued on pain management, bowel regimen and DVT prophylaxis as per primary team.. We'll continue to follow and further recommendations based on the clinical course. Anticipate discharge in next 24 hours. Time with Patient: Greater than 30
[2021-11-29] MEDS: HYDROcodone/APAP 5-325MG 1 EACH TAB PO PRN (06:18)
[2021-11-29 07:53] VITALS: TEMP 97.7
[2021-11-29] MEDS: FAMOTIDINE 20 MG TAB PO SCH (08:27)
[2021-11-29] MEDS: TAMSULOSIN 0.4 MG CAP.ER.24H PO SCH (08:27)
[2021-11-29] MEDS: carvediloL 12.5 MG TAB PO SCH (08:27)
[2021-11-29] MEDS: CHOLECALCIFEROL 25 MCG (1000 IU) TABLET PO SCH (08:27)
[2021-11-29] MEDS: ASPIRIN 81 MG PO SCH (08:28)
[2021-11-29 09:39] LABS: Basophils # (A) 0.06 X 10*3/uL (0.00-0.10); Basophils % (A) 0.6 %; Eosinophils # (A) 0.43 X 10*3/uL (0.04-0.35); Eosinophils % (A) 4.4 %; HCT 37.2 % (37.2-46.3); HGB 11.6 g/dL (12.0-15.0); Immature Grans, Automated 0.4 %; Lymphocytes # (A) 2.33 X 10*3/uL (0.90-5.00); Lymphocytes % (A) 23.6 %; MCH 27.8 pg (27.0-32.0); MCHC 31.2 g/dL (32.0-37.0); MCV 89.2 fL (80.0-97.0); Mean Platelet Volume 11.2 fL (9.5-12.2); Monocytes # (A) 1.08 X 10*3/uL (0.20-1.00); Monocytes % (A) 10.9 %; NRBC Per 100 WBC 0 /100 WBCS (0.0-0.0); Neutrophils # (A) 5.94 X 10*3/uL (1.80-7.70); Neutrophils % (A) 60.1 %; Platelet Count 313 X 10*3/uL (140-440); RBC 4.17 X 10*6/uL (4.10-5.20); RDW 13.1 % (11.5-14.5); WBC 9.88 X 10*3/uL (4.50-10.00)
--- NOTE | 2021-11-29 09:56 | P.DS ---
Providers Date of admission: 11/25/21 09:40 Expected date of discharge: 11/29/21 Attending physician: Will Bond Consults: 11/25/21 09:38 Consult Physician Stat Consulting Provider: Rachel Hernandez Consult Reason/Comments: Medical management Do you want consulting provider notified?: Already Contacted Primary care physician: Tayler [place] Hospital Course: This is a 65-year-old female who is admitted to [facility] on 11/25/21 after a ground-level fall and sustaining injury to the left hip. X-rays in the emergency department revealed a left subcapital femoral neck fracture. She is admitted to our service for surgical intervention and care. Patient was taken to surgery for operative fixation of left femoral neck fracture with in situ screw fixation on11/26/[address] Bond. The procedure was performed without complication or sequelae. The patient is doing fairly well postoperatively. Vital signs and labs are stable on postoperative day #3. Patient was complaining of chest tightness and shortness of breath in the post- operative period. Per internal medicine, chest CTA and troponins were obtained, which were negative. Patient states she felt better after taking Xanax yesterday, which was ordered by internal medicine. Patient was examined bedside today. Patient states she is no longer experiencing chest tightness or shortness of breath. She states the pain in her left hip is well controlled. She states he was up with physical therapy yesterday and she has been remaining toe-touch weightbearing. She is comfortable returning home with home health care today. Patient is tolerating her diet well. She is voiding without issue, she has had a bowel movement postoperatively. She denies chest pain, shortness breath, nausea, vomiting. Vital signs stable. On examination, the patient is sitting up in bed. She is alert and orientated x3. On inspection of the left hip, there are clean, dry, intact Opsite dressing intact. There is mild swelling of the thigh, thigh is soft and compressible. Patient has good strength and ROM of the left ankle and toes. Motor and sensory function is intact of the left lower extremity. Dorsalis pedis pulse +2, left lower extremity is warm and well perfused. Calf is soft and non-tender. Patient is discharged home with home health care in good condition, pending medical clearance today. Patient will follow-up with Dr. Bond in the office in 2 weeks. Please see [facility] rec for accurate list of discharge medication. Plan - Discharge Summary Discharge Rx Participant: No New Discharge Prescriptions: New Aspirin 81 mg PO BID 30 Days #60 tab Docusate [Colace] 100 mg PO BID #60 capsule Ergocalciferol [Vitamin D2 (1250 Mcg = 21487 Iu)] 50,000 unit PO Q72H #30 capsule HYDROcodone/APAP 5-325MG [Ganado 5-325] 1 - 2 tab PO Q6HR PRN 7 Days #40 tab PRN Reason: Pain Discharge Medication List Aspirin 81 mg PO BID 30 Days #60 tab 11/29/21 [Rx] Docusate [Colace] 100 mg PO BID #60 capsule 11/29/21 [Rx] Ergocalciferol [Vitamin D2 (1250 Mcg = 87022 Iu)] 50,000 unit PO Q72H #30 capsule 11/29/21 [Rx] HYDROcodone/APAP 5-325MG [G[place]ado 5-325] 1 - 2 tab PO Q6HR PRN 7 Days #40 tab 11/29/21 [Rx] Follow up Appointment(s)/Referral(s): Cory Barfield MD [STAFF PHYSICIAN] - 1 Week [facility], [NON-STAFF] - None,Stated [REFERRING] - 1-2 days Will Bond MD [Medical Doctor] - 12/11/21 2:15 pm Activity/Diet/Wound Care/Special Instructions: Toe touch weight bearing operative leg with walker. Keep operative dressing intact until follow-up in the office. Take pain medications as needed. Aspirin 81mg x 4weeks for blood clot prevention. Take vitamin D as prescribed to optimize bone health. Follow-up in the office with Dr. Bond in two weeks. Call the office with any questions or concerns, Discharge Disposition: HOME WITH HOME HEALTH SERVICES
[2021-11-29 09:58] LABS: African American GFR (CKD) 88.4 (60.0-200.0); Anion Gap 13.1 mmol/L (10.00-18.00); BUN/Creat Ratio 20.13 Ratio (12.00-20.00); Blood Urea Nitrogen 16.1 mg/dL (9.0-27.0); Calcium 8.9 mg/dL (8.7-10.3); Carbon Dioxide 25.9 mmol/L (20.0-27.5); Non-African American GFR(CKD) 76.3 (60.0-200.0)
[2021-11-29] MEDS ORDERED: lisinopriL 10 MG TAB PO SCH (10:00)
[2021-11-29] MEDS: hydrOXYzine pamoate 25 MG CAP PO PRN (10:39)
--- NOTE | 2021-11-29 11:06 | P.PN ---
Subjective Progress Note Date: 11/29/21 Principal diagnosis: in situ screw fixation of left femoral neck fracture Patient is a 65-year-old female with a known history of paroxysmal atrial fibrillation status post ablation currently on aspirin, hypertension, hyperlipidemia, osteoarthritis, history of SVT and anxiety presents to ER status post fall at home about 10:30 PM last night. Patient was playing with her gran dson and suddenly her foot hit on to something and fell to the left side. Since then she has been having pain over the side of the left leg. Sharp pain exacerbated with movement and could not walk due to pain. Denied any numbness or tingling sensation or weakness in the leg. Denied any heating her head. Denied any chest pain or shortness of breath. Presents to ER for evaluation. No fever no chills. No dysuria or hematuria. Denied any recent illnesses. 11/26/2021 Patient was admitted to hospital status post fall and impacted subcapital left femoral neck fracture. Patient underwent in situ screw fixation of left femoral neck fracture by orthopedic surgery. Currently pain is controlled. Denies any complaints of chest pain or shortness breath. No nausea or vomiting or abdominal pain or diarrhea. Patient was started on aspirin for DVT prophylaxis. Blood pressure is better controlled. Laboratory data showed WBC 14.4 hemoglobin 12.1 and platelets 277 Vitamin D level is 6.1. Patient was started on vitamin D supplementation. 11/27/2021 Patient is currently resting in bed. Awake alert and oriented. Complains of left hip pain. Denied any complaints of chest pain. No chest shortness of breath. No nausea vomiting abdominal pain. Patient is tolerating oral diet. Did not have any bowel movement today. Overnight patient did complain of chest pain. Troponin x3 -. PT OT is on board. 11/28/2021 Patient is currently lying in the bed. Awake alert and oriented x3. Postopera tive day 2. Patient has been complaining of chest tightness and shortness of breath. Due to elevated D-dimer level CT angiogram was done. Ruled out PE and showed vascular congestion and possible fluid overload. Patient was given a dose of IV Lasix and IV fluids on hold and increase oral intake. Patient is being continued on PT OT. Afebrile. No nausea vomiting or abdominal pain or diarrhea. Laboratory showed WBC count improved to 11.3 and hemoglobin 10.7 and platelets 306. 11/29/2021 Patient is currently resting in the bed. Anxiety is much improved. Blood pressure is still elevated. No complaints of chest pain uptight today. No shortness of breath. Able to participate in physical therapy. No fever no chills. No other acute overnight issues. Patient is being discharged home today. Current medications reviewed. Objective - Vital Signs Vital signs: Vital Signs Temp 97.7 F 11/29/21 07:52 Pulse 73 11/29/21 07:52 Resp 17 11/29/21 07:52 BP 174/84 11/29/21 07:52 Pulse Ox 93 L 11/29/21 07:52 Intake & Output 11/28/21 11/29/21 11/29/21 18:59 06:59 18:59 Intake Total 1080 296 Output Total 1 Balance 1080 -1 296 Intake: Oral 1080 296 Output: Stool 1 Other: Voiding Method Toilet Toilet # Voids 3 3 - Exam PHYSICAL EXAMINATION: Patient is lying in the bed comfortably, no acute distress, awake alert and oriented.. HEENT: Normocephalic. Neck is supple. Pupils reactive. Nostrils clear. Oral cavity is moist. Neck reveals no JVD, carotid bruits, or thyromegaly. CHEST EXAMINATION: Trachea is central. Symmetrical expansion. Lung olsen clear to auscultation and percussion. CARDIAC: Normal S1, S2 with no gallops. No murmurs ABDOMEN: Soft. Bowel sounds normal. No organomegaly. No abdominal bruits. Extremities: reveal no edema. No clubbing or cyanosis Neurologically awake, alert, oriented x3 with well-coordinated movements. No focal deficits noted Skin: No rash or skin lesions. Psychiatric: Coperative. Nonsuicidal Musculoskeletal: No joint swelling or deformity. Left hip decreased range of motion and tenderness on the lateral aspect..Surgical site intact. - Labs CBC & Chem 7: 11/29/21 03:58 11/29/21 03:58 Labs: Abnormal Lab Results - Last 24 Hours (Table) 11/29/21 Range/Units 03:58 Hgb 11.6 L (12.0-15.0) g/dL MCHC 31.2 L (32.0-37.0) g/dL Monocytes # 1.08 H (0.20-1.00) X 10*3/uL Eosinophils # 0.43 H (0.04-0.35) X 10*3/uL Assessment and Plan Assessment: Left femoral neck fracture. Status post mechanical fall. s/p in situ screw fixation of left femoral neck fracture. POD 3 Chest tightness. Ruled out PE. Likely due to vascular congestion and fluid load. Troponin x3 -. Resolved now. anxiety Paroxysmal atrial fibrillation not on anticoagulation. s/p ablation in 2014. on aspirin at home. Currently Maintained in sinus rhythm. History of SVT hypertension Hyperlipidemia Osteoarthritis History of cardiac catheterization Anxiety Occasion alcohol abuse DVT prophylaxis Plan: Patient will be continued on telemetry monitoring. Started back on Coreg and EKG reviewed. Currently maintained in sinus rhythm. Blood pressure is slightly elevated testing and will add lisinopril 10 mg daily. Patient be continued on pain management, bowel regimen and DVT prophylaxis as per primary team.. Patient is being discharged home today. Request to follow with primary care physician and cardiology as outpatient.. Time with Patient: Greater than 30
[2021-11-29 13:50] VITALS: BP 126/69; PULSE 70; RESP 16
== END 2021-11-29 15:41 | disposition home health service (06) | DRG 482 ==
LOC: EC 07:48 → SUPCPDRO 07:48 → 4SSUR 09:40
PROVIDERS: ADMIT Orthopaedic Surgery; ATTEND Orthopaedic Surgery
PROC: 8E0YXBF Computer Assisted Procedure of Lower Extremity, With Fluoroscopy (ICD-10-PCS; 2021-11-25)
PROC: 0QS704Z Reposition Left Upper Femur with Internal Fixation Device, Open Approach (ICD-10-PCS; principal; 2021-11-26 08:00)
DX: S72.012A Unspecified intracapsular fracture of left femur, initial encounter for closed fracture (principal); E55.9 Vitamin D deficiency, unspecified; E78.5 Hyperlipidemia, unspecified; I48.0 Paroxysmal atrial fibrillation; R79.1 Abnormal coagulation profile; F10.10 Alcohol abuse, uncomplicated; E87.70 Fluid overload, unspecified; F41.9 Anxiety disorder, unspecified; M62.9 Disorder of muscle, unspecified; I10 Essential (primary) hypertension; M19.90 Unspecified osteoarthritis, unspecified site; W18.30XA Fall on same level, unspecified, initial encounter; Z79.82 Long term (current) use of aspirin; Z82.49 Family history of ischemic heart disease and other diseases of the circulatory system; Y93.89 Activity, other specified; Z79.01 Long term (current) use of anticoagulants; Z86.79 Personal history of other diseases of the circulatory system; Z98.51 Tubal ligation status; Y92.009 Unspecified place in unspecified non-institutional (private) residence as the place of occurrence of the external cause
CPT/HCPCS: 36415; 71045; 71275; 73502; 80048; 80053; 82306; 84484; 85025; 85379; 85610; 85730; 86850; 86900; 86901; 93005; 96374; 96375; 99285

== ENCOUNTER 2023-12-17 00:12 | Inpatient (IN) | payer MEDICARE ==
--- NOTE | 2023-12-17 00:59 | ED ---
Altered Mental Status HPI - General Chief Complaint: Altered Mental Status Stated Complaint: Unconsciousness Time Seen by Provider: 12/17/23 00:17 Source: patient, EMS Mode of arrival: EMS - History of Present Illness Initial Comments: This patient is a 68-year-old woman who is brought by ambulance to have evaluation after family member found her appearing to be unresponsive following attempting bowel movement. The patient states that she had gone to use the bathroom and then does not remember what happened. The next thing that she remembers was EMS personnel being there. EMS reported that the patient was unresponsive initially and that they did give a 1 mg dose of Narcan as it was reported that the patient had taken some Freedom. EMS stated that the patient became more alert following medication administration. The patient does not believe that the Freedom was an issue as she does take this for some underlying aches and pains though she states not every day. The patient does note on arrival that she is having some pain all across the upper chest that she descri bes as an ache. MD Complaint: decreased responsiveness -: minutes(s) Severity: moderate Associated Symptoms: chest pain Treatments Prior to Arrival: other pre-hospital medication (Narcan) - Related Data Home Medications Medication Instructions Recorded Confirmed Albuterol Sulfate [Albuterol 1 - 2 puff PO RT-QID PRN 12/17/23 12/17/23 Sulfate Hfa] Apixaban [Eliquis] 5 mg PO BID 12/17/23 12/17/23 Aspirin 81 mg PO DAILY 12/17/23 12/17/23 Atorvastatin [Lipitor] 80 mg PO DAILY 12/17/23 12/17/23 Furosemide [Lasix] 40 mg PO DAILY 12/17/23 12/17/23 Sacubitril/Valsartan [Entresto 97 1 tab PO DAILY 12/17/23 12/17/23 mg-103 mg Tablet] Sennosides [Senokot] 8.6 mg PO BID 12/17/23 12/17/23 carvediloL [Coreg] 6.25 mg PO BID 12/17/23 12/17/23 hydrALAZINE HCL [Apresoline] 10 mg PO TID 12/17/23 12/17/23 rOPINIRole HCL 0.25 mg PO HS 12/17/23 12/17/23 Allergies Allergy/AdvReac Type Severity Reaction Status Date / Time rice Allergy Anaphylaxis Verified 12/17/23 10:21 Review of Systems ROS Statement: Those systems with pertinent positive or pertinent negative responses have been documented in the HPI. ROS Other: All systems not noted in ROS Statement are negative. Constitutional: Denies: fever, chills, weakness Eyes: Denies: vision change Respiratory: Denies: cough, dyspnea, stridor Cardiovascular: Reports: chest pain, syncope. Denies: palpitations, orthopnea, edema Gastrointestinal: Denies: abdominal pain, vomiting, diarrhea Genitourinary: Denies: dysuria, hematuria Musculoskeletal: Denies: back pain Skin: Denies: rash Neurological: Denies: headache, weakness Past Medical History Past Medical History: Atrial Fibrillation, GERD/Reflux, Hyperlipidemia, Hypertension, Musculoskeletal Disorder, Osteoarthritis (OA), Supraventricular Tachycardia (SVT) Additional Past Medical History / Comment(s): february 2018 possible TIA, but CT was normal. 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 to chest Past Anesthesia/Blood Transfusion Reactions: No Reported Reaction Past Psychological History: Anxiety Smoking Status: Never smoker Past Alcohol Use History: Occasional Past Drug Use History: None Reported - Past Family History Mother Family Medical History: Liver Disease Father Family Medical History: Coronary Artery Disease (CAD), Myocardial Infarction (ND) Sister(s) Family Medical History: No Reported History, Unable to Obtain Brother(s) Family Medical History: Cancer Daughter(s) Family Medical History: No Reported History General Exam General appearance: alert, in no apparent distress Head exam: Present: atraumatic, normocephalic Eye exam: Present: normal appearance. Absent: scleral icterus, conjunctival injection Neck exam: Present: normal inspection Respiratory exam: Present: normal lung sounds bilaterally. Absent: respiratory distress, wheezes, rales, rhonchi, stridor, chest wall tenderness, accessory muscle use Cardiovascular Exam: Present: regular rate, normal rhythm, normal heart sounds. Absent: systolic murmur, diastolic murmur, rubs, gallop GI/Abdominal exam: Present: soft. Absent: distended, tenderness, guarding, rebound, rigid, mass Extremities exam: Present: normal inspection, normal capillary refill. Absent: pedal edema, calf tenderness Back exam: Present: normal inspection. Absent: CVA tenderness (R), CVA tenderness (L) Neurological exam: Present: alert, oriented X3, CN II-XII intact. Absent: motor sensory deficit Skin exam: Present: warm, dry, intact, normal color. Absent: rash Course Vital Signs 12/17/23 12/17/23 12/17/23 00:14 04:34 07:42 Temperature Pulse Rate 67 80 80 Respiratory 16 18 18 Rate Blood Pressure 118/71 115/63 115/63 O2 Sat by Pulse 92 L 95 93 L Oximetry 12/17/23 12/17/23 12/17/23 08:00 08:30 09:00 Temperature Pulse Rate 75 74 72 Respiratory 15 16 15 Rate Blood Pressure 115/63 86/62 O2 Sat by Pulse 93 L 94 L 90 L Oximetry 12/17/23 12/17/23 12/17/23 09:08 09:09 09:30 Temperature 97.1 F L Pulse Rate 67 Respiratory 16 Rate Blood Pressure 89/58 O2 Sat by Pulse 97 98 Oximetry 12/17/23 12/17/23 12/17/23 10:00 10:30 11:00 Temperature Pulse Rate 63 58 L 55 L Respiratory 16 18 Rate Blood Pressure 92/61 92/66 101/68 O2 Sat by Pulse 98 100 98 Oximetry 12/17/23 12/17/23 12/17/23 11:30 12:00 12:30 Temperature Pulse Rate 57 L 64 Respiratory 17 19 Rate Blood Pressure 105/65 107/67 111/77 O2 Sat by Pulse 97 98 Oximetry 12/17/23 12/17/23 12/17/23 13:00 13:30 14:00 Temperature Pulse Rate 64 65 73 Respiratory 17 17 12 Rate Blood Pressure 97/68 99/67 106/71 O2 Sat by Pulse 93 L 93 L 94 L Oximetry 12/17/23 12/17/23 12/17/23 14:30 15:00 15:30 Temperature Pulse Rate 73 75 73 Respiratory 17 16 16 Rate Blood Pressure 122/81 119/68 106/76 O2 Sat by Pulse 92 L 91 L 86 L Oximetry 12/17/23 12/17/23 12/17/23 15:44 16:00 16:30 Temperature Pulse Rate 69 68 60 Respiratory 16 15 16 Rate Blood Pressure 121/68 108/89 108/89 O2 Sat by Pulse 97 97 96 Oximetry 12/17/23 12/17/23 12/17/23 17:00 17:30 18:00 Temperature Pulse Rate 57 L 64 56 L Respiratory 18 12 18 Rate Blood Pressure 111/68 89/55 109/71 O2 Sat by Pulse 97 97 97 Oximetry Medical Decision Making - Medical Decision Making This patient is 68-year-old woman brought to emergency to have evaluation after syncopal episode. She had been given dose of Vicodin and EMS gave her Narcan after which she became responsive. The patient evaluated in emergency and initially was wanting to go home however she was not able to steadily ambulate. The patient's case discussed with her primary physician who will admit Was pt. sent in by a medical professional or institution (, PA, DIGITAL ADVERTISING SPECIALIST, urgent care, hospital, or penitentiary...) When possible be specific @ -[No] Did you speak to anyone other than the patient for history (EMS, parent, family, police, friend...)? What history was obtained from this source @ -[No] Did you review nursing and triage notes (agree or disagree)? Why? @ -[I reviewed and agree with nursing and triage notes] Were old charts reviewed (outside hosp., previous admission, EMS record, old EKG, old radiological studies, urgent care reports/EKG's, penitentiary records)? Report findings @ -[No old charts were reviewed] Differential Diagnosis (chest pain, altered mental status, abdominal pain women, abdominal pain men, vaginal bleeding, weakness, fever, dyspnea, syncope, headache, dizziness, GI bleed, back pain, seizure, CVA, palpatations, mental health, musculoskeletal)? @ -Differential Syncope: Valvular disease, hypertrophic cardiomyopathy, pulmonary embolism, tamponade, tachycardia, bradycardia, ND, hypovolemia, hemorrhage, dissection, anemia, intracranial hemorrhage, seizure, hypoglycemia, carbon monoxide poisoning, this is not meant to be an all-inclusive list. EKG interpreted by me (3pts min.). @ -I interpreted as above X-rays interpreted by me (1pt min.). @ -[I interpreted as above CT interpreted by me (1pt min.). @ -[None done] U/S interpreted by me (1pt. min.). @ -[None done] What testing was considered but not performed or refused? (CT, X-rays, U/S, labs)? Why? @ -[None] What meds were considered but not given or refused? Why? @ -[None] Did you discuss the management of the patient with other professionals (professionals i.e. , PA, DIGITAL ADVERTISING SPECIALIST, lab, RT, psych nurse, social media job titles, research/program director, teacher, campus police officer, corrections caseworker)? Give summary @ -[No] Was smoking cessation discussed for >3mins.? @ -[No] Was critical care preformed (if so, how long)? @ -[No] Were there social determinants of health that impacted care today? How? (Homelessness, low income, unemployed, alcoholism, drug addiction, transportation, low edu. Level, literacy, decrease access to med. care, senior care, rehab)? @ -[No] Was there de-escalation of care discussed even if they declined (Discuss DNR or withdrawal of care, Hospice)? DNR status @ -[No] What co-morbidities impacted this encounter? (DM, HTN, Smoking, COPD, CAD, Cancer, CVA, ARF, Chemo, Hep., AIDS, mental health diagnosis, sleep apnea, morbid obesity)? @ -[None] Was patient admitted / discharged? Hospital course, mention meds given and route , prescriptions, significant lab abnormalities, going to OR and other pertinent info. @ -[hospital course] Undiagnosed new problem with uncertain prognosis? @ -[No] Drug Therapy requiring intensive monitoring for toxicity (Heparin, Nitro, Insulin, Cardizem)? @ -[No] Were any procedures done? @ -[No] Diagnosis/symptom? @ -[Syncopal episode Acute, or Chronic, or Acute on Chronic? @ -[Acute Uncomplicated (without systemic symptoms) or Complicated (systemic symptoms)? @ -[default] Side effects of treatment? @ -[No] Exacerbation, Progression, or Severe Exacerbation? @ -[No] Poses a threat to life or bodily function? How? (Chest pain, USA, ND, pneumonia, PE, COPD, DKA, ARF, appy, cholecystitis, CVA, Diverticulitis, Homicidal, Suicidal, threat to staff... and all critical care pts) @ -[No] - Lab Data Result diagrams: 12/17/23 02:09 12/19/23 08:49 Lab Results 12/17/23 12/17/23 12/17/23 Range/Units 02:09 02:09 02:09 WBC 5.6 (3.8-10.6) k/uL RBC 4.67 (3.80-5.40) m/uL Hgb 13.1 (11.4-16.0) gm/dL Hct 40.8 (34.0-46.0) % MCV 87.4 (80.0-100.0) fL MCH 28.1 (25.0-35.0) pg MCHC 32.1 (31.0-37.0) g/dL RDW 14.3 (11.5-15.5) % Plt Count 266 (150-450) k/uL MPV 8.0 Neutrophils % 65 % Lymphocytes % 22 % Monocytes % 8 % Eosinophils % 2 % Basophils % 1 % Neutrophils # 3.7 (1.3-7.7) k/uL Lymphocytes # 1.2 (1.0-4.8) k/uL Monocytes # 0.4 (0-1.0) k/uL Eosinophils # 0.1 (0-0.7) k/uL Basophils # 0.1 (0-0.2) k/uL PT 11.3 (10.0-12.5) sec INR 1.0 (<1.2) APTT 26.7 (22.0-30.0) sec Sodium (137-145) mmol/L Potassium (3.5-5.1) mmol/L Chloride (98-107) mmol/L Carbon Dioxide (22-30) mmol/L Anion Gap mmol/L BUN (7-17) mg/dL Creatinine (0.52-1.04) mg/dL Est GFR (CKD-EPI)AfAm (>60 ml/min/1.73 sqM) Est GFR (CKD-EPI)NonAf (>60 ml/min/1.73 sqM) Glucose (74-99) mg/dL Plasma Lactic Acid Scot (0.7-2.0) mmol/L Calcium (8.4-10.2) mg/dL Magnesium (1.6-2.3) mg/dL Total Bilirubin (0.2-1.3) mg/dL AST (14-36) U/L ALT (4-34) U/L Alkaline Phosphatase (38-126) U/L Troponin I (0.000-0.034) ng/mL Total Protein (6.3-8.2) g/dL Albumin (3.5-5.0) g/dL Urine Color Colorless Urine Appearance Clear (Clear) Urine pH 5.0 (5.0-8.0) Ur Specific Corning 1.009 (1.001-1.035) Urine Protein Negative (Negative) Urine Glucose (UA) Negative (Negative) Urine Ketones Negative (Negative) Urine Blood Trace H (Negative) Urine Nitrite Negative (Negative) Urine Bilirubin Negative (Negative) Urine Urobilinogen <2.0 (<2.0) mg/dL Ur Leukocyte Esterase Negative (Negative) Urine RBC 1 (0-5) /hpf Urine WBC 1 (0-5) /hpf Ur Squamous Epith Cells 1 (0-4) /hpf Urine Bacteria Rare H (None) /hpf Hyaline Casts 9 H (0-2) /lpf Urine Mucus Rare H (None) /hpf 12/17/23 12/17/23 12/17/23 Range/Units 02:09 02:09 02:09 WBC (3.8-10.6) k/uL RBC (3.80-5.40) m/uL Hgb (11.4-16.0) gm/dL Hct (34.0-46.0) % MCV (80.0-100.0) fL MCH (25.0-35.0) pg MCHC (31.0-37.0) g/dL RDW (11.5-15.5) % Plt Count (150-450) k/uL MPV Neutrophils % % Lymphocytes % % Monocytes % % Eosinophils % % Basophils % % Neutrophils # (1.3-7.7) k/uL Lymphocytes # (1.0-4.8) k/uL Monocytes # (0-1.0) k/uL Eosinophils # (0-0.7) k/uL Basophils # (0-0.2) k/uL PT (10.0-12.5) sec INR (<1.2) APTT (22.0-30.0) sec Sodium 136 L (137-145) mmol/L Potassium 3.5 (3.5-5.1) mmol/L Chloride 104 (98-107) mmol/L Carbon Dioxide 24 (22-30) mmol/L Anion Gap 8 mmol/L BUN 16 (7-17) mg/dL Creatinine 1.30 H (0.52-1.04) mg/dL Est GFR (CKD-EPI)AfAm 48 (>60 ml/min/1.73 sqM) Est GFR (CKD-EPI)NonAf 42 (>60 ml/min/1.73 sqM) Glucose 138 H (74-99) mg/dL Plasma Lactic Acid Scot 0.8 (0.7-2.0) mmol/L Calcium 8.2 L (8.4-10.2) mg/dL Magnesium 1.6 (1.6-2.3) mg/dL Total Bilirubin 0.4 (0.2-1.3) mg/dL AST 55 H (14-36) U/L ALT 52 H (4-34) U/L Alkaline Phosphatase 197 H (38-126) U/L Troponin I 0.018 (0.000-0.034) ng/mL Total Protein 7.1 (6.3-8.2) g/dL Albumin 3.8 (3.5-5.0) g/dL Urine Color Urine Appearance (Clear) Urine pH (5.0-8.0) Ur Specific Corning (1.001-1.035) Urine Protein (Negative) Urine Glucose (UA) (Negative) Urine Ketones (Negative) Urine Blood (Negative) Urine Nitrite (Negative) Urine Bilirubin (Negative) Urine Urobilinogen (<2.0) mg/dL Ur Leukocyte Esterase (Negative) Urine RBC (0-5) /hpf Urine WBC (0-5) /hpf Ur Squamous Epith Cells (0-4) /hpf Urine Bacteria (None) /hpf Hyaline Casts (0-2) /lpf Urine Mucus (None) /hpf 12/17/23 Range/Units 04:22 WBC (3.8-10.6) k/uL RBC (3.80-5.40) m/uL Hgb (11.4-16.0) gm/dL Hct (34.0-46.0) % MCV (80.0-100.0) fL MCH (25.0-35.0) pg MCHC (31.0-37.0) g/dL RDW (11.5-15.5) % Plt Count (150-450) k/uL MPV Neutrophils % % Lymphocytes % % Monocytes % % Eosinophils % % Basophils % % Neutrophils # (1.3-7.7) k/uL Lymphocytes # (1.0-4.8) k/uL Monocytes # (0-1.0) k/uL Eosinophils # (0-0.7) k/uL Basophils # (0-0.2) k/uL PT (10.0-12.5) sec INR (<1.2) APTT (22.0-30.0) sec Sodium (137-145) mmol/L Potassium (3.5-5.1) mmol/L Chloride (98-107) mmol/L Carbon Dioxide (22-30) mmol/L Anion Gap mmol/L BUN (7-17) mg/dL Creatinine (0.52-1.04) mg/dL Est GFR (CKD-EPI)AfAm (>60 ml/min/1.73 sqM) Est GFR (CKD-EPI)NonAf (>60 ml/min/1.73 sqM) Glucose (74-99) mg/dL Plasma Lactic Acid Scot (0.7-2.0) mmol/L Calcium (8.4-10.2) mg/dL Magnesium (1.6-2.3) mg/dL Total Bilirubin (0.2-1.3) mg/dL AST (14-36) U/L ALT (4-34) U/L Alkaline Phosphatase (38-126) U/L Troponin I 0.018 (0.000-0.034) ng/mL Total Protein (6.3-8.2) g/dL Albumin (3.5-5.0) g/dL Urine Color Urine Appearance (Clear) Urine pH (5.0-8.0) Ur Specific Corning (1.001-1.035) Urine Protein (Negative) Urine Glucose (UA) (Negative) Urine Ketones (Negative) Urine Blood (Negative) Urine Nitrite (Negative) Urine Bilirubin (Negative) Urine Urobilinogen (<2.0) mg/dL Ur Leukocyte Esterase (Negative) Urine RBC (0-5) /hpf Urine WBC (0-5) /hpf Ur Squamous Epith Cells (0-4) /hpf Urine Bacteria (None) /hpf Hyaline Casts (0-2) /lpf Urine Mucus (None) /hpf - EKG Data -: EKG Interpreted by Me EKG shows normal: sinus rhythm, axis (Normal), intervals (Normal), QRS complexes (Normal), ST-T waves (Possible inferolateral ischemia) Rate: normal (Rate 66 bpm) Disposition Clinical Impression: Syncope Disposition: HOME SELF-CARE Condition: Good Is patient prescribed a controlled substance at d/c from ED?: No
[2023-12-17 02:27] LABS: Basophils # (A) 0.1 k/uL (0-0.2); Basophils % (A) 1 %; Eosinophils # (A) 0.1 k/uL (0-0.7); Eosinophils % (A) 2 %; HCT 40.8 % (34.0-46.0); HGB 13.1 gm/dL (11.4-16.0); Lymphocytes # (A) 1.2 k/uL (1.0-4.8); Lymphocytes % (A) 22 %; MCH 28.1 pg (25.0-35.0); MCHC 32.1 g/dL (31.0-37.0); MCV 87.4 fL (80.0-100.0); Monocytes # (A) 0.4 k/uL (0-1.0); Monocytes % (A) 8 %; Neutrophils # (A) 3.7 k/uL (1.3-7.7); Neutrophils % (A) 65 %; Platelet Count 266 k/uL (150-450); RBC 4.67 m/uL (3.80-5.40); RDW 14.3 % (11.5-15.5); WBC 5.6 k/uL (3.8-10.6)
[2023-12-17 02:36] LABS: ALT 52 U/L (4-34); AST 55 U/L (14-36); African American GFR (CKD) 48 (>60 ml/min/1.73 sqM); Albumin 3.8 g/dL (3.5-5.0); Alkaline Phosphatase 197 U/L (38-126); Anion Gap 8 mmol/L; Blood Urea Nitrogen 16 mg/dL (7-17); Calcium 8.2 mg/dL (8.4-10.2); Carbon Dioxide 24 mmol/L (22-30); Chloride 104 mmol/L (98-107); Glucose 138 mg/dL (74-99); Magnesium 1.6 mg/dL (1.6-2.3); Non-African American GFR(CKD) 42 (>60 ml/min/1.73 sqM); Potassium 3.5 mmol/L (3.5-5.1); Sodium 136 mmol/L (137-145); Total Bilirubin 0.4 mg/dL (0.2-1.3); Total Protein 7.1 g/dL (6.3-8.2)
[2023-12-17 02:42] LABS: Partial Thromboplastin Time 26.7 sec (22.0-30.0); Prothrombin Time 11.3 sec (10.0-12.5)
--- NOTE | 2023-12-17 02:43 | XR ---
EXAM: XR Chest, 2 Views CLINICAL HISTORY: ITS.REASON XR Reason: Weakness TECHNIQUE: Frontal and lateral views of the chest. COMPARISON: No relevant prior studies available. FINDINGS: Lungs: No consolidation or mass. Pleural space: No effusion. Heart: cardiomegaly. Bones/joints: No acute findings. IMPRESSION: No acute cardiopulmonary process.
[2023-12-17 03:00] LABS: Appearance,Urine Clear (Clear); Bacteria,Urine Rare /hpf; Bilirubin,Urine Negative (Negative); Blood,Urine Trace (Negative); Color,Urine Colorless; Glucose,Urine (UA) Negative (Negative); Hyaline Casts,Urine 9 /lpf (0-2); Ketones,Urine Negative (Negative); Leukocyte Esterase,Urine Negative (Negative); Mucus,Urine Rare /hpf; Nitrite,Urine Negative (Negative); Protein,Urine Negative (Negative); RBC,Urine 1 /hpf (0-5); Specific Gravity,Urine 1.009 (1.001-1.035); Squamous Epithelial Cell,Urine 1 /hpf (0-4); Urobilinogen,Urine <2.0 mg/dL (<2.0); WBC,Urine 1 /hpf (0-5)
[2023-12-17] MEDS: MORPHINE SULFATE 4 MG/ML SYRINGE IV STA (04:37)
[2023-12-17] MEDS ORDERED: NITROGLYCERIN SL TABS 0.4 MG TAB SUBLINGUAL PRN (05:37)
[2023-12-17] MEDS ORDERED: TEMAZEPAM 15 MG CAP PO PRN (05:38)
[2023-12-17] MEDS: carvediloL 12.5 MG TAB PO SCH (07:35)
[2023-12-17] MEDS: HYDROcodone/APAP 5-325MG 1 EACH TAB PO PRN (07:40)
[2023-12-17] MEDS ORDERED: ASPIRIN 81 MG PO SCH (09:00)
[2023-12-17] MEDS: lisinopriL 5 MG TAB PO SCH (09:09)
[2023-12-17 11:11] LABS: Amphetamine Screen,Urine Detected (NotDetected); Barbiturate Screen,Urine Not Detected (NotDetected); Benzodiazepines Screen,Urine Not Detected (NotDetected); Cocaine Screen,Urine Not Detected (NotDetected); Methadone Screen, Urine Not Detected (NotDetected); Opiate Screen,Urine Detected (NotDetected); Oxycodone Screen, Urine Not Detected (NotDetected); Phencyclidine Screen,Urine Not Detected (NotDetected); Tricyclic Antidepressant,Urine Not Detected (NotDetected); Urn Cannabinoid Scrn Not Detected (NotDetected)
--- NOTE | 2023-12-17 13:04 | CA ---
Transthoracic Echo Report Name: Richy Wade Age: 68 Gender: F : 1955 Exam Date: 12/17/2023 11:16 Exam Location: [facility] Ht (in): 62 Wt (lb): 130 Ordering Physician: Brijesh Carvalho MD ([id number]) Attending/Referring Phys: [employer] Mary Noble RCS Procedure CPT: Indications: unstable angina Cardiac Hx: Technical Quality: Good Contrast 1: Total Dose (mL): Contrast 2: Total Dose (mL): MEASUREMENTS (Male / Female) Normal Values 2D ECHO LV Diastolic Diameter PLAX 4.6 cm 4.2 - 5.9 / 3.9 - 5.3 cm LV Systolic Diameter PLAX 3.6 cm IVS Diastolic Thickness 1.5 cm 0.6 - 1.0 / 0.6 - 0.9 cm LVPW Diastolic Thickness 1.2 cm 0.6 - 1.0 / 0.6 - 0.9 cm LV Relative Wall Thickness 0.6 RV Internal Dim ED PLAX 3.3 cm LVOT Diameter 2.0 cm LV Diastolic Volume MOD BP 122.8 cm??? 67 - 155 / 56 - 104 cm??? LV Systolic Volume MOD BP 66.4 cm??? 22 - 58 / 19 - 49 cm??? LV Ejection Fraction MOD BP 46.0 % >= 55 % LV Cardiac Index MOD BP 1957.2 cm???/min???m??? LV Diastolic Volume MOD 4C 108.1 cm??? LV Systolic Volume MOD 4C 60.5 cm??? LV Ejection Fraction MOD 4C 44.0 % LV Cardiac Index MOD 4C 1650.6 cm???/min???m??? LV Diastolic Length 4C 8.1 cm LV Systolic Length 4C 7.1 cm LV Diastolic Volume MOD 2C 122.0 cm??? LV Systolic Volume MOD 2C 62.0 cm??? LV Ejection Fraction MOD 2C 49.1 % LV Cardiac Index MOD 2C 2078.9 cm???/min???m??? LV Diastolic Length 2C 9.3 cm LV Systolic Length 2C 8.4 cm LA Volume 46.4 cm??? 18 - 58 / 22 - 52 cm??? LA Volume Index 28.7 cm???/m??? 16 - 28 cm???/m??? Ascending Aorta Diameter 4.3 cm DOPPLER AV Peak Velocity 139.4 cm/s AV Peak Gradient 7.8 mmHg AV Mean Velocity 91.2 cm/s AV Mean Gradient 3.8 mmHg AV Velocity Time Integral 21.7 cm LVOT Peak Velocity 88.3 cm/s LVOT Peak Gradient 3.1 mmHg LVOT Velocity Time Integral 14.9 cm LVOT Stroke Volume 45.7 cm??? LVOT Stroke Volume Index 28.7 ml/m??? LVOT Cardiac Index 1584.5 cm???/min???m??? AV Area Cont Eq vti 2.1 cm??? AV Area Cont Eq pk 1.9 cm??? Mitral E Point Velocity 24.2 cm/s Mitral A Point Velocity 70.3 cm/s Mitral E to A Ratio 0.3 MV Deceleration Time 209.8 ms TR Peak Velocity 289.7 cm/s TR Peak Gradient 33.6 mmHg Right Ventricular Systolic Press 43.6 mmHg PV Peak Velocity 60.2 cm/s PV Peak Gradient 1.5 mmHg FINDINGS Left Ventricle Left ventricular ejection fraction is estimated at 40-45 %. Moderately increased septal wall thickness. Mildly increased posterior wall thickness. Moderately increased left ventricular diastolic volume. Moderately increased left ventricular systolic volume. Mildly decreased left ventricular ejection fraction. Right Ventricle Borderline enlarged right ventricular size with mildly reduced function. Moderately increased right ventricular systolic pressure. Right Atrium Normal right atrial size. Left Atrium Normal left atrial size. Mitral Valve Mitral valve thickened. Mitral annular calcification. No evidence for mitral valve prolapse. No mitral stenosis. Trace mitral regurgitation. Aortic Valve Trileaflet aortic valve. Focal thickening of the aortic valve cusps. No aortic stenosis. Trace aortic regurgitation. Tricuspid Valve Structurally normal tricuspid valve. No tricuspid stenosis. Mild tricuspid regurgitation. Pulmonic Valve Structurally normal pulmonic valve. No pulmonic stenosis. Trace pulmonic regurgitation. Pericardium No pericardial effusion. Aorta Normal size aortic root. Mildly enlarged ascending aorta. CONCLUSIONS Left ventricular ejection fraction is estimated at 40-45 %. Moderate concentric LVH Globally reduced LV systolic function. No obvious regional wall motion abnormality Mild RV dilatation and mildly reduced RV systolic function Polyvalve thickening No significant valvular dysfunction Mildly enlarged ascending aorta 4.3 cm When compare to echo report from [facility] 12/2022, findings are similar Previewed by: Dr Brijesh Carvalho (Electronically Signed) Final Date: 17 December 2023 13:03
--- NOTE | 2023-12-17 18:08 | P.CRDCN ---
History of Present Illness Consult date: 12/17/23 History of present illness: HISTORY OF PRESENTING ILLNESS 68-year-old female with past medical history of embolic CVA, hypertension who was seen Dr. Barfield in past in 2019. She has since then lost to follow-up. She was last seen at [facility] in December 2023 by cardiology team when her echocardiogram showed an EF of 40%. Her ECG at that time showed nonspecific ST depressions in inferolateral leads. This time patient was brought by family member who found patient to be unresponsive when she was attempting to have a bowel movement. Last thing that patient remembers is going to the bathroom. He does not remember events thereafter. The next and she remembers is EMS person helping her out. EMS gave 1 dose of Narcan to the patient as there was some report that patient took [place] prior to the event. Patient woke after receiving Narcan. At the time of evaluation patient received 1 dose of 5 mg [place] 2 minutes prior to my evaluation. Patient appears mildly drowsy and mildly confused. History seems to be unreliable. She reports on and off substernal chest pain symptoms. She denies any palpitations. She denies any difficulty in breathing she denies any dizziness or any new spinning sensation. Her ECG showed sinus rhythm with ST segment depression with T wave inversions in inferolateral leads. When compared to prior ECG from [facility] system these changes appears to be new. When compared to ECG changes from the acute on from 12/2022, is seem to be similar but more exaggerated on current admission. Prior MPI in 2018 was nonischemic. Has loop recorder which was placed 2014 for cryptogenic stroke did not detect any arrhythmias. At that time PVC burden was reported to be 13%. Her labs showed creatinine of 1.3, troponin x 3 negative, ALP 197. UDS is positive for opioids, amphetamine, methamphetamine. Patient's PCP Dr. Taylor reported that there is possible concerns of polysubstance abuse in this patient in the past and noncompliance. REVIEW OF SYSTEMS 14 point review of system is negative except what is mentioned above in HPI. PHYSICAL EXAMINATION Vital signs reviewed. Head: Normocephalic. Eyes: Sclerae nonicteric. Neck: Brisk carotid upstroke, no jugular venous distention. Lungs: Clear to auscultation. Heart: Regular rate and rhythm, S1-S2, no S3, no murmur or rub. Abdomen: Soft nontender, positive bowel sounds. Extremities: No edema, intact distal pulses. Neuro: Appears drowsy, oriented to time place and person. Detailed neuro exam was not performed. ASSESSMENT 1. Syncope, unwitnessed Found unresponsive, woke up to Narcan. Prior history of polysubstance abuse. UDS positive for methamphetamine and opiates. 2. Cardiomyopathy EF 40 to 45%, etiology unknown whether ischemic or julia schemic. Not sure if patient had prior heart catheterization. Prior MPI in 2018 was nonischemic. Currently euvolemic 3. 13% PVCs on loop recorder in 2014. No significant ectopy on current telemet ry. 4. History of embolic stroke. No evidence of A-fib on loop recorder in 2014 5. Essential hypertension 6. Concerns of noncompliance 7. Polysubstance use PLAN Reviewed images shows EF of 40 to 45%, moderate concentric LVH, Polyvalvular thickening. These findings are somewhat not different from her echo from 12/2022 at [facility]. Consider neurology consult Continue telemetry monitoring Monitor hemodynamics. As per last clinic note, patient is on losartan, hydrochlorothiazide, amlodipine, Coreg, aspirin, atorvastatin at home. Will resume aspirin, atorvastatin, Coreg 6.25 twice daily. Resume other BP medications as per blood pressure readings. Brijesh Carvalho MD, FACC, RPVI Thank you for allowing [facility] to participate in t his patient's care. Feel free to reach out in case of any followup questions. Past Medical History Past Medical History: Atrial Fibrillation, GERD/Reflux, Hyperlipidemia, Hypertension, Musculoskeletal Disorder, Osteoarthritis (OA), Supraventricular Tachycardia (SVT) Additional Past Medical History / Comment(s): february 2018 possible TIA, but CT was normal. irregular heart beat History of Any Multi-Drug Resistant Organisms: None Reported Past Surgical History: Ablation, Heart Catheterization, Tonsillectomy, Tubal Ligation Additional Past Surgical History / Comment(s): cardiac ablation, implanted pipe processor to chest Past Anesthesia/Blood Transfusion Reactions: No Reported Reaction Past Psychological History: Anxiety Smoking Status: Never smoker Past Alcohol Use History: Occasional Past Drug Use History: None Reported - Past Family History Mother Family Medical History: Liver Disease Father Family Medical History: Coronary Artery Disease (CAD), Myocardial Infarction ([place]) Sister(s) Family Medical History: No Reported History, Unable to Obtain Brother(s) Family Medical History: Cancer Daughter(s) Family Medical History: No Reported History Medications and Allergies Home Medications Medication Instructions Recorded Confirmed Type Albuterol Sulfate [Albuterol 1 - 2 puff PO RT-QID PRN 12/17/23 12/17/23 History Sulfate Hfa] Apixaban [Eliquis] 5 mg PO BID 12/17/23 12/17/23 History Aspirin 81 mg PO DAILY 12/17/23 12/17/23 History Atorvastatin [Lipitor] 80 mg PO DAILY 12/17/23 12/17/23 History Furosemide [Lasix] 40 mg PO DAILY 12/17/23 12/17/23 History Sacubitril/Valsartan [Entresto 97 1 tab PO DAILY 12/17/23 12/17/23 History mg-103 mg Tablet] Sennosides [Senokot] 8.6 mg PO BID 12/17/23 12/17/23 History carvediloL [Coreg] 6.25 mg PO BID 12/17/23 12/17/23 History hydrALAZINE HCL [Apresoline] 10 mg PO TID 12/17/23 12/17/23 History rOPINIRole HCL 0.25 mg PO HS 12/17/23 12/17/23 History Allergies Allergy/AdvReac Type Severity Reaction Status Date / Time rice Allergy Anaphylaxis Verified 12/17/23 10:21 Physical Exam Vitals: Vital Signs Temp Pulse Resp BP Pulse Ox 12/17/23 17:00 57 L 18 111/68 97 12/17/23 16:30 60 16 108/89 96 12/17/23 16:00 68 15 108/89 97 12/17/23 15:44 69 16 121/68 97 12/17/23 15:30 73 16 106/76 86 L 12/17/23 15:00 75 16 119/68 91 L 12/17/23 14:30 73 17 122/81 92 L 12/17/23 14:00 73 12 106/71 94 L 12/17/23 13:30 65 17 99/67 93 L 12/17/23 13:00 64 17 97/68 93 L 12/17/23 12:30 111/77 12/17/23 12:00 64 19 107/67 98 12/17/23 11:30 57 L 17 105/65 97 12/17/23 11:00 55 L 101/68 98 12/17/23 10:30 58 L 18 92/66 100 12/17/23 10:00 63 16 92/61 98 12/17/23 09:30 67 16 89/58 98 12/17/23 09:09 97.1 F L 12/17/23 09:08 97 12/17/23 09:00 72 15 86/62 90 L 12/17/23 08:30 74 16 94 L 12/17/23 08:00 75 15 115/63 93 L 12/17/23 07:42 80 18 115/63 93 L 12/17/23 04:34 80 18 115/63 95 12/17/23 00:14 67 16 118/71 92 L Intake and Output 12/17/23 12/17/23 12/17/23 06:59 14:59 22:59 Other: Weight 58.967 kg Results 12/17/23 02:09 12/17/23 02:09 Cardiac Enzymes 12/17/23 12/17/23 12/17/23 Range/Units 02:09 02:09 04:22 AST 55 H (14-36) U/L Troponin I 0.018 0.018 (0.000-0.034) ng/mL 12/17/23 Range/Units 07:34 AST (14-36) U/L Troponin I 0.025 (0.000-0.034) ng/mL Coagulation 12/17/23 Range/Units 02:09 PT 11.3 (10.0-12.5) sec APTT 26.7 (22.0-30.0) sec CBC 12/17/23 Range/Units 02:09 WBC 5.6 (3.8-10.6) k/uL RBC 4.67 (3.80-5.40) m/uL Hgb 13.1 (11.4-16.0) gm/dL Hct 40.8 (34.0-46.0) % Plt Count 266 (150-450) k/uL Comprehensive Metabolic Panel 12/17/23 Range/Units 02:09 Sodium 136 L (137-145) mmol/L Potassium 3.5 (3.5-5.1) mmol/L Chloride 104 (98-107) mmol/L Carbon Dioxide 24 (22-30) mmol/L BUN 16 (7-17) mg/dL Creatinine 1.30 H (0.52-1.04) mg/dL Glucose 138 H (74-99) mg/dL Calcium 8.2 L (8.4-10.2) mg/dL AST 55 H (14-36) U/L ALT 52 H (4-34) U/L Alkaline Phosphatase 197 H (38-126) U/L Total Protein 7.1 (6.3-8.2) g/dL Albumin 3.8 (3.5-5.0) g/dL Current Medications Generic Name Dose Route Start Last Admin Trade Name Freq PRN Reason Stop Dose Admin Hydrocodone Bitart/Acetaminophen 1 each 12/17/23 05:38 12/17/23 07:40 Hydrocodone/Apap 5-325mg 1 Each Tab PO 1 each Q6HR PRN Administration Pain Apixaban 5 mg 12/17/23 21:00 Apixaban 5 Mg Tab PO BID [facility] Protocol Aspirin 81 mg 12/18/23 09:00 Aspirin 81 Mg PO DAILY [facility] Atorvastatin Calcium 80 mg 12/18/23 09:00 Atorvastatin 80 Mg Tab PO DAILY [facility] Carvedilol 6.25 mg 12/17/23 17:30 Carvedilol 6.25 Mg Tab PO BID-W/MEALS [facility] Lisinopril 5 mg 12/17/23 09:00 12/17/23 09:09 Lisinopril 5 Mg Tab PO Not Given DAILY [facility] Nitroglycerin 0.4 mg 12/17/23 05:37 Nitroglycerin Sl Tabs 0.4 Mg Tab SUBLINGUAL Q5M PRN Chest Pain Intake and Output 12/17/23 12/17/23 12/17/23 06:59 14:59 22:59 Other: Weight 58.967 kg 12/17/23 02:09 12/17/23 02:09
[2023-12-17] MEDS: carvediloL 6.25 MG TAB PO SCH (19:00)
[2023-12-17] MEDS: APIXABAN 5 MG TAB PO SCH (21:11)
--- NOTE | 2023-12-17 22:07 | HP ---
HISTORY AND PHYSICAL CHIEF COMPLAINT: Chest pain and syncope. HISTORY OF PRESENT ILLNESS: This is the first known admission for this 68-year-old female, who has a history of significant hypertension. She is noncompliant and does not take her medications responsibly. She also is a chronic meth addict. She came to the emergency room with syncope and chest pain. Her blood pressure was quite low in the ER. Troponins were normal. REVIEW OF SYSTEMS: Otherwise normal. She has had no diaphoresis, abdominal pain, melena, hematochezia, jaundice, etc. She has had no fever, chills. Past medical history, family history, and personal and social histories are essentially unremarkable. MEDICATIONS: She is on, 1. Albuterol inhaler. 2. Hydralazine 10 mg 3 times a day. 3. Entresto 97/103 twice a day. 4. Atorvastatin 80. 5. Eliquis 5 mg twice a day for atrial fibrillation. 6. Coreg 6.25 mg twice a day. 7. Lasix 40 mg once a day. 8. Aspirin. She has had atrial fibrillation. She has had a history of congestive heart failure as well. She does not smoke and she does not abuse alcohol. She does use meth. PHYSICAL EXAMINATION: VITAL SIGNS: Blood pressure is 83/54 with a pulse of 86, respirations of 35, and she is afebrile. GENERAL: She appeared to be pale and chronically ill. NECK: Neck veins are not distended. Thyroid is not enlarged. CHEST: Clear. CARDIAC: Demonstrates atrial fibrillation. ABDOMEN: Soft, nontender. EXTREMITIES: Normal. NEUROLOGICAL: She is intact. DIAGNOSES: She is admitted to the hospital with diagnoses of: 1. Chest pain. 2. Hypertension. 3. Hypotension. 4. Meth addiction. 5. History of heart failure. 6. Atrial fibrillation. PLAN: 1. Bedrest. 2. IV fluids. 3. Serial EKGs and enzymes. 4. Consult Cardiology. MMODL / IJN: [id number] /
[2023-12-17] MEDS: traZODone HCL 50 MG TAB PO PRN (22:54)
[2023-12-18] MEDS ORDERED: AMINOPHYLLINE 500 MG/20 ML VIAL IV PRN (07:24)
[2023-12-18] MEDS ORDERED: REGADENOSON 0.4 MG/5 ML SYRINGE IV PRN (07:24)
[2023-12-18] MEDS ORDERED: CAFFEINE CITRATE 60 MG/3 ML VIAL IV PRN (07:24)
[2023-12-18] MEDS: ASPIRIN 81 MG PO SCH (08:43)
[2023-12-18] MEDS: ATORVASTATIN 80 MG TAB PO SCH (08:43)
[2023-12-18] MEDS ORDERED: ASPIRIN 325 MG TAB PO SCH (09:00)
[2023-12-18] MEDS ORDERED: ASPIRIN 81 MG PO SCH (09:00)
--- NOTE | 2023-12-18 09:39 | P.PN ---
Subjective Progress Note Date: 12/18/23 HISTORY OF PRESENTING ILLNESS 68-year-old female with past medical history of embolic CVA, hypertension who was seen Dr. Barfield in past in 2019. She has since then lost to follow-up. She was last seen at [facility] in December 2023 by cardiology team when her echocardiogram showed an EF of 40%. Her ECG at that time showed nonspecific ST depressions in inferolateral leads. This time patient was brought by family member who found patient to be unresponsive when she was attempting to have a bowel movement. Last thing that patient remembers is going to the bathroom. He does not remember events thereafter. The next and she remembers is EMS person helping her out. EMS gave 1 dose of Narcan to the patient as there was some report that patient took [place] prior to the event. Patient woke after receiving Narcan. At the time of evaluation patient received 1 dose of 5 mg [place] 2 minutes prior to my evaluation. Patient appears mildly drowsy and mildly confused. History seems to be unreliable. She reports on and off substernal chest pain symptoms. She denies any palpitations. She denies any difficulty in breathing she denies any dizziness or any new spinning sensation. Her ECG showed sinus rhythm with ST segment depression with T wave inversions in inferolateral leads. When compared to prior ECG from [facility] system these changes appears to be new. When compared to ECG changes from the acute on from 12/2022, is seem to be similar but more exaggerated on current admission. Prior MPI in 2018 was nonischemic. Has loop recorder which was placed 2014 for cryptogenic stroke did not detect any arrhythmias. At that time PVC burden was reported to be 13%. Her labs showed creatinine of 1.3, troponin x 3 negative, ALP 197. UDS is positive for opioids, amphetamine, methamphetamine. Patient's PCP Dr. Taylor reported that there is possible concerns of polysubstance abuse in this patient in the past and noncompliance. 12/17 Patient is seen today in follow-up on the observation unit. Blood pressure 132/84, heart rate 76, pulse ox 96% on room air. Echocardiogram reveals EF of 40 to 45%, moderate concentric left ventricular hypertrophy. Globally reduced LV systolic function. No obvious regional wall motion abnormality. Mild RV dilatation and mildly reduced RV systolic function. Probably valve thickening. No significant valvular dysfunction. Mildly enlarged ascending aorta 4.3 cm. Results of echocardiogram reviewed with the patient. She has had no episode of syncope here in the hospital. PHYSICAL EXAMINATION Vital signs reviewed. Head: Normocephalic. Eyes: Sclerae nonicteric. Neck: Brisk carotid upstroke, no jugular venous distention. Lungs: Clear to auscultation. Heart: Regular rate and rhythm, S1-S2, no S3, no murmur or rub. Abdomen: Soft nontender, positive bowel sounds. Extremities: No edema, intact distal pulses. Neuro: Appears drowsy, oriented to time place and person. Detailed neuro exam was not performed. ASSESSMENT 1. Syncope, unwitnessed Found unresponsive, woke up to Narcan. Prior history of polysubstance abuse. UDS positive for methamphetamine and opiates. 2. Cardiomyopathy EF 40 to 45%, etiology unknown whether ischemic or nonischemic. Not sure if patient had prior heart catheterization. Prior MPI in 2017 was nonischemic. Currently euvolemic 3. 13% PVCs on loop recorder in 2014. No significant ectopy on current telemetry. 4. History of embolic stroke. No evidence of A-fib on loop recorder in 2014 5. Essential hypertension 6. Concerns of noncompliance 7. Polysubstance use 8. Cardiomyopathy with EF of 40 to 45%, undetermined etiology PLAN Reviewed images shows EF of 40 to 45%, moderate concentric LVH, Polyvalvular thickening. These findings are somewhat not different from her echo from 12/2022 at [facility]. Consider neurology consult Continue telemetry monitoring Obtain orthostatic vital signs Continue aspirin, atorvastatin, Coreg 6.25 twice daily. Resume other BP medications as per blood pressure readings. Home schedule patient for Lexiscan stress test on as patient is already eaten this morning. Nurse practitioner note has been reviewed, I agree with documented findings and plan of care. Patient was seen and examined. Objective - Vital Signs Vital signs: Vital Signs Temp 98.5 F 12/18/23 06:25 Pulse 76 12/18/23 06:25 Resp 17 12/18/23 06:25 BP 132/84 12/18/23 06:25 Pulse Ox 96 12/18/23 06:25 FiO2 Intake & Output 12/17/23 12/18/23 12/18/23 18:59 06:59 18:59 Weight 58.967 kg Other: Voiding Method Toilet # Voids 1 - Labs CBC & Chem 7: 12/17/23 02:09 12/17/23 02:09 Labs: Abnormal Lab Results - Last 24 Hours (Table) 12/17/23 Range/Units 09:32 Urine Opiates Screen Detected H (NotDetected) Ur Amphetamines Screen Detected H (NotDetected) U Methamphetamines Scrn Detected H (NotDetected)
[2023-12-18 12:09] LABS: Chol/HDL Ratio 3.06 Ratio; VLDL Calculation 19.52 mg/dL (5.00-40.00)
--- NOTE | 2023-12-18 21:43 | PN ---
PROGRESS NOTE CHIEF COMPLAINT: Chest pain and hypertension with a history of heart failure. HISTORY OF PRESENT ILLNESS: This lady is doing well and there has been no interval change. She is going down for stress test tomorrow. Our echocardiogram reveals an ejection fraction of 40% to 45%. Her GFR is 42. IMPRESSION: 1. Chest pain. 2. Hypertension. 3. Stage IIIB renal failure. 4. Heart failure with minimally impaired ejection fraction. PLAN: Await study tomorrow and further recommendations from Cardiology. MMODL / IJN: [id number] /
[2023-12-19 09:40] LABS: ALT 36 U/L (4-34); AST 41 U/L (14-36); African American GFR (CKD) 53 (>60 ml/min/1.73 sqM); Alkaline Phosphatase 151 U/L (38-126); Anion Gap 6 mmol/L; Blood Urea Nitrogen 24 mg/dL (7-17); Calcium 8.1 mg/dL (8.4-10.2); Carbon Dioxide 28 mmol/L (22-30); Chloride 103 mmol/L (98-107); Glucose 90 mg/dL (74-99); Non-African American GFR(CKD) 46 (>60 ml/min/1.73 sqM); Potassium 3.7 mmol/L (3.5-5.1); Sodium 137 mmol/L (137-145); Total Bilirubin 0.3 mg/dL (0.2-1.3)
[2023-12-19] MEDS ORDERED: REGADENOSON 0.4 MG/5 ML SYRINGE IV PRN (10:16)
--- NOTE | 2023-12-19 11:17 | P.PN ---
Subjective Progress Note Date: 12/19/23 HISTORY OF PRESENTING ILLNESS 68-year-old female with past medical history of embolic CVA, hypertension who was seen Dr. Barfield in past in 2019. She has since then lost to follow-up. She was last seen at [facility] in December 2023 by cardiology team when her echocardiogram showed an EF of 40%. Her ECG at that time showed nonspecific ST depressions in inferolateral leads. This time patient was brought by family member who found patient to be unresponsive when she was attempting to have a bowel movement. Last thing that patient remembers is going to the bathroom. He does not remember events thereafter. The next and she remembers is EMS person helping her out. EMS gave 1 dose of Narcan to the patient as there was some report that patient took [place] prior to the event. Patient woke after receiving Narcan. At the time of evaluation patient received 1 dose of 5 mg [place] 2 minutes prior to my evaluation. Patient appears mildly drowsy and mildly confused. History seems to be unreliable. She reports on and off substernal chest pain symptoms. She denies any palpitations. She denies any difficulty in breathing she denies any dizziness or any new spinning sensation. Her ECG showed sinus rhythm with ST segment depression with T wave inversions in inferolateral leads. When compared to prior ECG from [facility] these changes appears to be new. When compared to ECG changes from the acute on from 12/2022, is seem to be similar but more exaggerated on current admission. Prior MPI in 2018 was nonischemic. Has loop recorder which was placed 2014 for cryptogenic stroke did not detect any arrhythmias. At that time PVC burden was reported to be 13%. Her labs showed creatinine of 1.3, troponin x 3 negative, ALP 197. UDS is positive for opioids, amphetamine, methamphetamine. Patient's PCP Dr. Taylor reported that there is possible concerns of polysubstance abuse in this patient in the past and noncompliance. Progress note 12/19/2023 Patient is seen and examined at bedside this a.m. She reports feeling better. Denies any active chest pain or any lightheadedness dizziness. PHYSICAL EXAMINATION Vital signs reviewed. Head: Normocephalic. Eyes: Sclerae nonicteric. Neck: Brisk carotid upstroke, no jugular venous distention. Lungs: Clear to auscultation. Heart: Regular rate and rhythm, S1-S2, no S3, no murmur or rub. Abdomen: Soft nontender, positive bowel sounds. Extremities: No edema, intact distal pulses. Neuro: Appears drowsy, oriented to time place and person. Detailed neuro exam was not performed. ASSESSMENT 1. Syncope, unwitnessed Found unresponsive, woke up to Narcan. Prior history of polysubstance abuse. UDS positive for methamphetamine and opiates. 2. Cardiomyopathy EF 40 to 45%, etiology unknown whether ischemic or nonischemic. Not sure if patient had prior heart catheterization. Prior MPI in 2018 was nonischemic. Currently euvolemic 3. 13% PVCs on loop recorder in 2014. No significant ectopy on current telemetry. 4. History of embolic stroke. No evidence of A-fib on loop recorder in 2014 5. Essential hypertension 6. Concerns of noncompliance 7. Polysubstance use PLAN Reviewed images shows EF of 40 to 45%, moderate concentric LVH, Polyvalvular thickening. These findings are somewhat not different from her echo from 12/2022 at [facility]. Due to nonspecific ECG changes and cardiomyopathy, will obtain a Lexiscan nuclear stress test. Await results Consider neurology consult Continue telemetry monitoring Monitor hemodynamics. As per last clinic note, patient is on losartan, hydrochlorothiazide, amlodipine, Coreg, aspirin, atorvastatin at home. Will resume aspirin, atorvastatin, Coreg 6.25 twice daily, lisinopril 5 mg. Obtain CMP levels, if creatinine is at baseline, will discontinue lisinopril and start Entresto Objective - Vital Signs Vital signs: Vital Signs Temp 97.7 F 12/19/23 07:30 Pulse 64 12/19/23 07:30 Resp 20 12/19/23 07:30 BP 151/87 12/19/23 07:30 Pulse Ox 98 12/19/23 07:30 FiO2 Intake & Output 12/18/23 12/19/23 12/19/23 18:59 06:59 18:59 Intake Total 354 Balance 354 Intake: Oral 354 Other: # Voids 1 2 - Labs CBC & Chem 7: 12/17/23 02:09 12/19/23 08:49 Labs: Abnormal Lab Results - Last 24 Hours (Table) 12/19/23 Range/Units 08:49 BUN 24 H (7-17) mg/dL Creatinine 1.21 H (0.52-1.04) mg/dL Calcium 8.1 L (8.4-10.2) mg/dL AST 41 H (14-36) U/L ALT 36 H (4-34) U/L Alkaline Phosphatase 151 H (38-126) U/L Total Protein 6.0 L (6.3-8.2) g/dL Albumin 3.0 L (3.5-5.0) g/dL
--- NOTE | 2023-12-19 11:33 | CA ---
Lexiscan Nuclear Stress Test Report Name: Richy Wade Exam Date: 12/19/2023 09:40 Exam Location: [facility] Ht (in): 62 Wt (lb): 125 BSA: 1.57 Ordering Phys: Pilar Noel Referring Phys: DEBBIE AUGUSTIN Technologist: JESSICA العراقي Age: 68 Gender: F : 1955 Procedure CPT: Indications: Reflex order-Stress test ICD-10 Codes: Patient History: CHEST PAIN, DIFFICULTY IN BREATHING, HTN, PRIOR CVA, ELEVATED CHOLESTEROL LEVELS, FAMILY HX OF HEART DISEASE Medications: Meds past 24 hrs: Pretest Chest Pain: STRESS TEST Lexiscan Protocol Exercise Duration (min:sec): 01:[address] Depressions (mm): Angina Score: Sequeira Score: Resting HR (bpm): 58 Peak HR (bpm): 76 Resting BP (mmHg): 133 / 77 Peak BP (mmHg): 133 / 77 MPHR: 150 Target HR: 128 % MPHR: 51 METS: 1.0 Total Dose: Peak Dose: Atropine: Double Product: 12517 BP Response: Stress Termination: INFUSION COMPLETE Stress Symptoms: DIFFICULTY IN BREATHING Stress Summary: ECG ANALYSIS Resting ECG: Normal sinus rhythm, ST depressions with T wave inversions in inferolateral leads Stress ECG: Patient continues to have ST depressions and T wave inversions during stress portion of Lexiscan infusion. There were no arrhythmias or ectopic beats noted during the stress test CONCLUSIONS Abnormal ECG at baseline. No further changes from baseline noticed during stress ECG with Lexiscan infusion Overall abnormal ECG Please refer to the nuclear imaging portion of the stress test for the complete interpretation of the study Dr Brijesh Carvalho (Electronically Signed) Final Date: 19 December 2023 11:32
--- NOTE | 2023-12-19 13:00 | NM ---
EXAMINATION TYPE: NM stress lexiscan cardiolite DATE OF EXAM: 12/19/2023 COMPARISON: NONE CLINICAL INDICATION: Female, 68 years old with history of syncope; TECHNIQUE: After the intravenous administration of 10.01 mCi Tc 99m Sestamibi - Cardiolite resting S PECT images acquired 45 minutes post injection. The patient received 0.4mg Lexiscan, 25.4 mCi Tc 99m Sestamibi - Stress images obtained [address] injection FINDINGS: Review of stress and rest SPECT images demonstrates diminished intensity uptake involving the inferio r lateral myocardium.. Gated analysis shows reduced fairly global wall motion with an estimated left ventricular ejection fraction of 36 %. TheTID is 1.1 IMPRESSION: 1. Diminished uptake involving the inferior lateral myocardium is felt to be more likely artifactual than an area of stress-induced reversible ischemia but should be correlated clinically. 2. Ejection fraction is only 36%.
[2023-12-19 14:32] VITALS: RESP 16
--- NOTE | 2023-12-19 20:52 | PN ---
PROGRESS NOTE CHIEF COMPLAINT: Chest pain. HISTORY OF PRESENT ILLNESS: This lady is down for stress test. It is noted that her GFR is 46 with a BUN of 24 and creatinine 1.2. Calcium is also low at 8.1. IMPRESSION: 1. Chest pain. 2. Hypertension. 3. Methamphetamine addiction. 4. Chronic kidney disease. 5. Hypocalcemia. PLAN: Await results of stress test. MMBONNIEL / IJN: [id number] /
[2023-12-20 08:56] VITALS: PULSE 63
--- NOTE | 2023-12-20 10:20 | P.PN ---
Subjective Progress Note Date: 12/20/23 HISTORY OF PRESENTING ILLNESS 68-year-old female with past medical history of embolic CVA, hypertension who was seen Dr. Barfield in past in 2019. She has since then lost to follow-up. She was last seen at [facility] in December 2023 by cardiology team when her echocardiogram showed an EF of 40%. Her ECG at that time showed nonspecific ST depressions in inferolateral leads. This time patient was brought by family member who found patient to be unresponsive when she was attempting to have a bowel movement. Last thing that patient remembers is going to the bathroom. He does not remember events thereafter. The next and she remembers is EMS person helping her out. EMS gave 1 dose of Narcan to the patient as there was some report that patient took Malcom prior to the event. Patient woke after receiving Narcan. At the time of evaluation patient received 1 dose of 5 mg Malcom 2 minutes prior to my evaluation. Patient appears mildly drowsy and mildly confused. History seems to be unreliable. She reports on and off substernal chest pain symptoms. She denies any palpitations. She denies any difficulty in breathing she denies any dizziness or any new spinning sensation. Her ECG showed sinus rhythm with ST segment depression with T wave inversions in inferolateral leads. When compared to prior ECG from [facility] these changes appears to be new. When compared to ECG changes from the acute on from 12/2022, is seem to be similar but more exaggerated on current admission. Prior MPI in 2018 was nonischemic. Has loop recorder which was placed 2014 for cryptogenic stroke did not detect any arrhythmias. At that time PVC burden was reported to be 13%. Her labs showed creatinine of 1.3, troponin x 3 negative, ALP 197. UDS is positive for opioids, amphetamine, methamphetamine. Patient's PCP Dr. Taylor reported that there is possible concerns of polysubstance abuse in this patient in the past and noncompliance. Progress note 12/19/2023 Patient is seen and examined at bedside this a.m. She reports feeling better. Denies any active chest pain or any lightheadedness dizziness. 12/20/2023 Seen and examined at bedside this a.m. Patient reports feeling better. She reports that she is back to her baseline. No reported lightheadedness dizziness PHYSICAL EXAMINATION Vital signs reviewed. Head: Normocephalic. Eyes: Sclerae nonicteric. Neck: Brisk carotid upstroke, no jugular venous distention. Lungs: Clear to auscultation. Heart: Regular rate and rhythm, S1-S2, no S3, no murmur or rub. Abdomen: Soft nontender, positive bowel sounds. Extremities: No edema, intact distal pulses. Neuro: Appears drowsy, oriented to time place and person. Detailed neuro exam w as not performed. ASSESSMENT 1. Syncope, unwitnessed Found unresponsive, woke up to Narcan. Prior history of polysubstance abuse. UDS positive for methamphetamine and opiates. 2. Cardiomyopathy EF 40 to 45%, likely nonischemic based on Lexiscan 2023. Not sure if patient had prior heart catheterization. Prior MPI in 2017 was nonischemic. Currently euvolemic 3. 13% PVCs on loop recorder in 2014. No significant ectopy on current telemetry. 4. History of embolic stroke. No evidence of A-fib on loop recorder in 2014 5. Essential hypertension 6. Concerns of noncompliance 7. Polysubstance use PLAN Reviewed images shows EF of 40 to 45%, moderate concentric LVH, Polyvalvular thickening. These findings are somewhat not different from her echo from 12/[address] [facility]. Due to nonspecific ECG changes and cardiomyopathy, will obtain a Lexiscan nuclear stress test. Lexiscan showed attenuation in inferior wall but no evidence of reversible perfusion defect. EF reported 36%. aspirin, atorvastatin, Coreg 6.25 twice daily. For Her cardiomyopathy will start Jardiance 10 mg daily and switch lisinopril to Entresto 24/26 mg twice daily. Blood pressure is mildly elevated. She needs further optimization of heart failure medications on outpatient basis. Neurology consult. Appreciate recs. Recommend o/p f/u with cardiology associates. Objective - Vital Signs Vital signs: Vital Signs Temp 98.3 F 12/20/23 07:00 Pulse 63 12/20/23 07:00 Resp 16 12/20/23 07:00 BP 152/86 12/20/23 07:00 Pulse Ox 95 12/20/23 07:00 FiO2 Intake & Output 12/19/23 12/20/23 12/20/23 18:59 06:59 18:59 Other: Voiding Method Toilet # Voids 2 2 # Bowel Movements 1 - Labs CBC & Chem 7: 12/17/23 02:09 12/19/23 08:49
[2023-12-20] MEDS: DAPAGLIFLOZIN PROPANEDIOL 10 MG TABLET PO SCH (10:51)
--- NOTE | 2023-12-20 13:58 | US ---
EXAMINATION TYPE: US carotid duplex BILAT DATE OF EXAM: 12/20/2023 Exam done portable COMPARISON: US 2018 CLINICAL INDICATION: Female, 68 years old with history of Syncope; TECHNIQUE: Carotid duplex ultrasound examination. Indirect Doppler criteria was utilized. FINDINGS: EXAM MEASUREMENTS: RIGHT: Peak Systolic Velocity (PSV) cm/sec ----- Right CCA: 34.4 ----- Right ICA: 94.8 ----- Right ECA: 73.3 ICA/CCA ratio: 2.8 RIGHT: End Diastole cm/sec ----- Right CCA: 9.3 ----- Right ICA: 31.2 ----- Right ECA: 10.6 LEFT: Peak Systolic Velocity (PSV) cm/sec ----- Left CCA: 42.3 ----- Left ICA: 46.8 ----- Left ECA: 72.2 ICA/CCA ratio: 1.1 LEFT: End Diastole cm/sec ----- Left CCA: 11.5 ----- Left ICA: 14.8 ----- Left ECA: 4.4 VERTEBRALS (direction of flow): Right Vertebral: Antegrade Left Vertebral: Antegrade Rhythm: Normal Right ICA/CCA ratio 2.8 IMPRESSION: Elevated ICA to CCA ratio on the right with normal peak systolic velocities. Consider evaluation with CTA neck there is concern for significant stenosis. Criteria for Assigning % of Stenosis / Diameter reduction (Estimation based on the indirect measurements of the internal carotid artery velocities (ICA PSV). 1. Normal (no stenosis)=ICA PSV < 125 cm/s: ratio < 2.0: ICA EDV<40 cm/s. 2. Less than 50% stenosis=ICA PSV < 125 cm/s: ratio < 2.0: ICA EDV<40 cm/s. 3. 50 to 69% stenosis=ICA PSV of 125 to 230 cm/s: ration 2.0 ? 4.0: ICA EDV 40-100 cm/s. 4. Greater than 70% stenosis to near occlusion= ICA PSV > 230 cm/s: ratio > 4.0: ICA EDV > 100 cm/s. 5. Near occlusion= ICA PSV velocities may be low or undetectable: variable ratio and ICA EDV. 6. Total occlusion=unable to detect flow.
[2023-12-20 14:55] VITALS: BP 155/82; TEMP 97.9
--- NOTE | 2023-12-20 15:54 | CDI ---
Documentation Clarification Form Date: 12/20/2023 03:10:56 PM From: Martina Mcclellan RN CCDS Phone: [phone] Admit Date: 12/17/2023 05:38:00 AM Patient Name: Richy Wade Visit Number: [id number] Discharge Date: ATTENTION: The Clinical Documentation Specialists (CDI) and [facility] Coding Staff appreciate your assistance in clarifying documentation. Please respond to the clarification below the line at the bottom and electronically sign. The CDI & [facility] Coding staff will review the response and follow-up if needed. Please note: Queries are made part of the Legal Health Record. If you have any questions, please contact the author of this message via ITS. Dr. Parth Taylor The patients principal diagnosis the diagnosis that was chiefly responsible for the admission - has not been clearly identified and clarification is requested. The patient presented via EMS for evaluation after being found by family unresponsive following attempting a bowel movement. Per EMS the patient was given one dose of Narcan as was reported that the patient had taken some Simms. 12/16, ED note. History/Risk factors: 68-year-old female with a history of Atrial fibrillation, congestive heart failure and Methamphetamine use. Clinical Indicators: Lab findings, 12/16: NA 136, Calcium 8.2 AST 55, ALT 52, ALK PHOS 107 Troponin 0.018; 0.025; Toxicology Opiates detected, Amphetamines detected, Methamphetamines detected. Vital Signs 12/16: B/P 118, HR 67, RR 16, SpO2 92% room air ECHO, 12/16: Left ventricular ef estimated at 40-45%. Moderate concentric LVH. Globally reduced LV systolic function. Mild RV dilation and mildly reduced RV systolic function. Polyvalve thickening. Mildly enlarged ascending aorta 4.3cm. Stress Echo, 12/18: ST depressions and T wave inversions during stress portion of Lexiscan infusion EKG shows normal: sinus rhythm, axis (Normal), intervals (Normal), QRS complexes (Normal), ST-T waves (Possible inferolateral ischemia) Nuclear Medicine Stress Lexiscan, 12/18: Diminished uptake involving the inferior lateral myocardium is felt to be more likely artefactual than an area of stress induced reversible ischemia. EF only 36% Cardiology note, 12/19: Reviewed images shows EF of 40 to 45%, moderate concentric LVH, Polyvalvular thickening. Lexiscan showed attenuation in inferior wall but no evidence of reversible perfusion defect.EF reported 36%. Medication: aspirin, atorvastatin, Coreg 6.25 twice daily. For Her cardiomyopathy will start Jardiance 10 mg daily and switch lisinopril to Entresto 24/26 mg twice daily.Blood pressure is mildly elevated.She needs further optimization of heart failure medications on outpatient basis. Treatment: 12/16 Morphine 4mg IV x 1; 12/16 Simms 5-325mg PO Q6HR; 12/16 - 12/16 Coreg 12.5mg po BID; 12/16 Zestril 5mg po Daily FEDERICO, 12/07 Coreg 6.25mg PO BID with meals; 12/16 Eliqus, 12/17 Aspriin 81mg po daily; 12/17 Lipitor 80mg po Daily, 12/19 Farxiga 10mg po Daily, 10/22 Entresto 24mg 26mg po BID. Consults: Cardiology see above. In your professional opinion, can you please clarify which diagnosis, after study, was the reason chiefly responsible for the admission? [ ] Heart Failure [ ] Other, please specify [ ] Unable to determine (Template Last Revised: November 2020) MTDD
--- NOTE | 2023-12-20 16:11 | CDI ---
Documentation Clarification Form Date: 12/20/2023 03:56:25 PM From: Martina Mcclellan RN CCDS Phone: [phone] Admit Date: 12/17/2023 05:38:00 AM Patient Name: Richy Wade Visit Number: [id number] Discharge Date: ATTENTION: The Clinical Documentation Specialists (CDI) and [facility] Coding Staff appreciate your assistance in clarifying documentation. Please respond to the clarification below the line at the bottom and electronically sign. The CDI & [facility] Coding staff will review the response and follow-up if needed. Please note: Queries are made part of the Legal Health Record. If you have any questions, please contact the author of this message via ITS. Dr. Brijesh Carvalho Your patient has the documented diagnosis of unspecified Heart failure 12/19, Cardiology note. Additional information regarding the [type, acuity] of CHF is requested. History/Risk Factors 68-year-old female presented via EMS for evaluation after being found by family unresponsive following attempting a bowel movement. Per EMS the patient was given one dose of Narcan as was reported that the patient had taken some [place]. 12/16, ED note. Clinical Indicators: Vital Signs 12/16: B/P 118, HR 67, RR 16, SpO2 92% room air ECHO, 12/16: Left ventricular ef estimated at 40-45%. Moderate concentric LVH. Globally reduced LV systolic function. Mild RV dilation and mildly reduced RV systolic function. Polyvalve thickening. Mildly enlarged ascending aorta 4.3cmChest X Ray: 12/16 No acute cardiopulmonary process Treatment: 12/16 - 12/16 Coreg 12.5mg po BID; 12/16 Zestril 5mg po Daily FEDERICO, 12/07 Coreg 6.25mg PO BID with meals; 12/16 Eliqus, 12/17 Aspriin 81mg po daily; 12/17 Lipitor 80mg po Daily, 12/19 Farxiga 10mg po Daily, 10/22 Entresto 24mg 26mg po BID. In your professional opinion, can you please clarify the acuity and type of CHF if known? [ ] Chronic Systolic Heart Failure (reduced EF) [ ] Other, please specify [ ] Unable to determine (Template Last Revised: October 2020) MTDD
--- NOTE | 2023-12-21 12:47 | P.CNNES ---
History of Present Illness Consult date: 12/20/23 Requesting physician: Brijesh Carvalho Reason for Consult: confusion, dizziness, syncope History of Present Illness: Patient is a 68-year-old left handed female with history of hypertension, previous CVA, came to the hospital by ambulance 3 days ago, 12/17/2023 shortly after midnight for a syncopal spell. Patient states that for about 3 days prior to arrival to the hospital, she was feeling funny, coughing a lot, sneezing. She started feeling like she was "floating". On the day of admission, she went to the bedroom and felt superhot. She wanted to go to the bathroom, stood up and blacked out in the hallway. She caught the wall and did not fall. She was able to manage to go to the bathroom. After she was done, she started feeling dizziness, lightheadedness and then blacked out again. When her family came, s he was talking but mumbling. She could not even talk to her daughter and she called the ambulance. Patient states that she had a headache when she came, but the headache is gone last night. Patient states that she did not hit her head, or suffered from any injury. As per EMS flowsheet, when they arrived, patient was unresponsive, responding slightly to painful stimuli. Patient was sitting on top of the toilet seat and EMS was holding her in upright position. Patient's family states that they found her they are not alert but breathing and called 911. Patient's pupils were constricted with minimal light. Pupils were responsive but sluggish. Family denied patient's history of drug or alcohol abuse. Patient's mental status improved after medication administration. Patient mentioned that she took one of her husbands Rose ho. Patient denied any chest pain, shortness of breath, dizziness, headache or recent injury. Her vitals at the scene was blood pressure 117/79, pulse rate 67 respirations 16 saturation 93%. Initial GCS was 8. Blood test shows normal CBC, PT PTT,'s's sodium 136 potassium is normal, BUN 16, creatinine 1.30. AST is 55, ALT 52. Troponin negative. UA negative. Urine drug screen positive for opiate, and amphetamine and methamphetamine. Patient had a 2D echo, which revealed left ventricular EF 40 to 45%. Moderate concentric LVH. Globally reduced left ventricular systolic function. No obvious regional wall motion abnormality. Mild right ventricular dilation. Chest x-ray is normal. Patient admits to smoking meth about 4 days prior. She takes it about once a week "to get energy", and has been using it off and on for last 1 year. She de nies any marijuana use. Patient denies any tobacco use. She does drink half a pint of scotch once a week. She has hypertension but no diabetes. She has history of CVA on 04/04/2015. Patient had a normal EEG previously on 04/04/2015. Patient has history of presentation to hospital on 18 for TIA. Patient is currently on Eliquis 5 mg twice daily since her stroke. Also on aspirin 81 mg, Lipitor 80 mg, Coreg, ropinirole, hydralazine. Review of Systems Constitutional: Reports chills (on day of arrival, gone), Denies fever Eyes: right blurred vision (cataract), right loss of vision (cataract), denies diplopia, denies pain Ears: deny: decreased hearing, ear discharge Ears, nose, mouth and throat: Denies headache, Denies sore throat, Denies vertigo Cardiovascular: Reports chest pain (conmes and goes), Denies shortness of breath Respiratory: Reports cough, Denies excessive sputum Gastrointestinal: Reports diarrhea, Reports nausea, Denies abdominal pain, Denies vomiting Genitourinary: Reports mixed incontinence, Reports urge incontinence Musculoskeletal: Reports neck pain, Denies low back pain Integumentary: Denies pruritus, Denies rash Neurological: Reports as per HPI Psychiatric: Denies anxiety, Denies depression Past Medical History Past Medical History: Atrial Fibrillation, GERD/Reflux, Hyperlipidemia, Hypertension, Musculoskeletal Disorder, Osteoarthritis (OA), Supraventricular Tachycardia (SVT) Additional Past Medical History / Comment(s): february 2018 possible TIA, but CT was normal. irregular heart beat History of Any Multi-Drug Resistant Organisms: None Reported Past Surgical History: Ablation, Heart Catheterization, Tonsillectomy, Tubal Ligation Additional Past Surgical History / Comment(s): cardiac ablation, implanted satellite project site monitor to chest Past Anesthesia/Blood Transfusion Reactions: No Reported Reaction Past Psychological History: Anxiety Smoking Status: Never smoker Past Alcohol Use History: Occasional Past Drug Use History: None Reported - Past Family History Mother Family Medical History: Liver Disease Father Family Medical History: Coronary Artery Disease (CAD), Myocardial Infarction (VT) Sister(s) Family Medical History: No Reported History, Unable to Obtain Brother(s) Family Medical History: Cancer Daughter(s) Family Medical History: No Reported History Medications and Allergies Home Medications Medication Instructions Recorded Confirmed Type Albuterol Sulfate [Albuterol 1 - 2 puff PO RT-QID PRN 12/17/23 12/17/23 History Sulfate Hfa] Apixaban [Eliquis] 5 mg PO BID 12/17/23 12/17/23 History Aspirin 81 mg PO DAILY 12/17/23 12/17/23 History Atorvastatin [Lipitor] 80 mg PO DAILY 12/17/23 12/17/23 History Furosemide [Lasix] 40 mg PO DAILY 12/17/23 12/17/23 History Sacubitril/Valsartan [Entresto 97 1 tab PO DAILY 12/17/23 12/17/23 History mg-103 mg Tablet] Sennosides [Senokot] 8.6 mg PO BID 12/17/23 12/17/23 History carvediloL [Coreg] 6.25 mg PO BID 12/17/23 12/17/23 History hydrALAZINE HCL [Apresoline] 10 mg PO TID 12/17/23 12/17/23 History rOPINIRole HCL 0.25 mg PO HS 12/17/23 12/17/23 History Allergies Allergy/AdvReac Type Severity Reaction Status Date / Time rice Allergy Anaphylaxis Verified 12/17/23 10:21 Physical Examination - Vital Signs Vital Signs: Vital Signs Temp Pulse Pulse Pulse Pulse Resp BP 12/20/23 07:00 98.3 F 63 16 12/20/23 02:00 98.4 F 67 16 12/20/23 01:12 71 59 L 81 74 16 12/19/23 20:00 98.0 F 59 L 16 12/19/23 19:59 71 59 L 81 74 16 12/19/23 16:26 61 125/77 12/19/23 14:04 97.6 F 60 16 BP Pulse Ox 12/20/23 07:00 152/86 95 12/20/23 02:00 130/64 99 12/20/23 01:12 12/19/23 20:00 119/70 97 12/19/23 19:59 12/19/23 16:26 12/19/23 14:04 112/68 97 Intake and Output 12/19/23 12/20/23 12/20/23 22:59 06:59 14:59 Other: Voiding Method Toilet Toilet # Voids 2 2 # Bowel Movements 1 Patient is an elderly female, in no acute distress. Patient is alert awake oriented to time place and person. Speech and language functions are normal. Patient can name and repeat very well. No aphasia or dysarthria. Attention, concentration and fund of knowledge is adequate. On cranial nerve examination, pupils are equal, round and reacting to light, visual olsen are full on confrontation, with no neglect on double simultaneous stimulation. Extraocular muscles are intact with no nystagmus. Face is symmetric, tongue protrudes to the midline. Palatal elevation and sensation normal, hearing and shoulder shrug normal, facial sensation normal. On muscle strength testing, there is no pronator drift and the strength is normal in arms and legs distally and proximally. Deep tendon reflexes are symmetric to all over in the arms and legs, and plantars downgoing. Sensory to touch is equal with no neglect on double simultaneous stimulation. Cerebellar function showed no ataxia for [id number] testing. No dysdiadochokinesia. No ataxia for [id number] testing on either side. Tone and bulk of muscles normal. Gait deferred.. On general examination, there is no carotid bruit or murmur, S1-S2 audible. Chest is clear on consultation. Abdomen is soft nontender. No organomegaly, bowel sounds present. Peripheral pulses are present. No peripheral edema. Results - Laboratory Findings CBC and BMP: 12/17/23 02:09 12/19/23 08:49 Abnormal Lab Findings: Abnormal Labs 12/17/23 12/17/23 12/17/23 02:09 02:09 09:32 Sodium 136 L BUN Creatinine 1.30 H Glucose 138 H Calcium 8.2 L AST 55 H ALT 52 H Alkaline Phosphatase 197 H Total Protein Albumin Urine Blood Trace H Urine Bacteria Rare H Hyaline Casts 9 H Urine Mucus Rare H Urine Opiates Screen Detected H Ur Amphetamines Screen Detected H U Methamphetamines Scrn Detected H 12/19/23 08:49 Sodium BUN 24 H Creatinine 1.21 H Glucose Calcium 8.1 L AST 41 H ALT 36 H Alkaline Phosphatase 151 H Total Protein 6.0 L Albumin 3.0 L Urine Blood Urine Bacteria Hyaline Casts Urine Mucus Urine Opiates Screen Ur Amphetamines Screen U Methamphetamines Scrn Assessment and Plan Assessment: * Syncopal spell, likely vasovagal, rule out arrhythmia. Probably related to substance abuse. * Polysubstance abuse. Patient is urine positive for opiate, methamphetamine and amphetamines. * History of CVA 04/04/2015 * Cardiomyopathy with EF 40 to 45%. * Hypertension Plan: * Patient's syncopal spell likely related to either vasovagal, or arrhythmia. * Check carotid Doppler, rule out stenosis. * Patient recommended to stop using illicit drugs. * D echo, which revealed left ventricular EF 40 to 45%. Moderate concentric LVH. Globally reduced left ventricular systolic function. No obvious regional wall motion abnormality. Mild right ventricular dilation. * Cardiology on board. * Continue Eliquis 5 mg twice daily, aspirin 81 mg and Lipitor 80 mg. * Discussed with patient about CT head, but patient states her symptoms have resolved, and declined CT. * Neurologically clear, if the carotid Doppler comes back normal. Thank you for the consult.
--- NOTE | 2023-12-21 18:49 | DS ---
DISCHARGE SUMMARY CHIEF COMPLAINT: Chest pain and syncope. HISTORY OF PRESENT ILLNESS AND PHYSICAL EXAMINATION: Details of this lady's history and physical can be found in the initial workup. LABORATORY STUDIES: While she is in the hospital, she had laboratory studies, details of which can be found in the laboratory section of her chart. COURSE IN THE HOSPITAL: After admission, she was placed on bedrest, started on intravenous fluids. She had serial EKGs and exercise stress and Cardiology felt that she could be discharged, she was anxious to go home, and she was discharged on the . She will go home on her usual activity, diet, and be followed up in several days. FINAL DIAGNOSES: 1. Acute onset of chest pain. 2. Essential hypertension. 3. Syncope. OPERATIONS: None. CONSULTATION: Cardiology. She is improved. MMGAVIN / MOJGAN: [id number] /
[2023-12-21] MEDS ORDERED: SACUBITRIL/VALSARTAN 24 MG-26 MG TABLET PO SCH (21:00)
--- NOTE | 2023-12-23 16:34 | CDI ---
Documentation Clarification Form Date: 12/23/2023 04:24:04 PM From: Viktoria Vargas Phone: Admit Date: 12/17/2023 05:38:00 AM Patient Name: Richy Wade Visit Number: [id number] Discharge Date: 12/20/2023 05:45:00 PM ATTENTION: The Clinical Documentation Specialists (CDI) and [facility] Coding Staff appreciate your assistance in clarifying documentation. Please respond to the clarification below the line at the bottom and electronically sign. The CDI & [facility] Coding staff will review the response and follow-up if needed. Please note: Queries are made part of the Legal Health Record. If you have any questions, please contact the author of this message via ITS. Dr. Parth Taylor Unspecified CKD is documented Progress Note 12/18. Additional clarification regarding the stage of CKD is requested. History/Risk Factors: 68yo F, unsp Cardiomyopathy, HTN w CHF, meth dependence, A Fib, Hx SVT, hypotension sp syncope, Rx & Tx noncompliance Clinical Indicators: BUN: 16-24 GFR: 42-48 Cr: 1.30- 1.21 Treatment: It is noted that her GFR is 46 with a BUN of 24 and creatinine 1.2.Calcium is also low at 8.1; ifcreatinineis at baseline, will discontinue Lisinopril and start Entresto Please clarify the stage of the CKD, if known: [ ] CKD Stage 3a [ ] CKD Stage 3b [ ] Other, please specify [ ] Unable to determine Reference: [employer] Stage 1 eGFR = 90 and kidney damage for =3 months Stage 2 eGFR 60-89 and kidney damage for =3 months Stage 3a eGFR 45-59 and kidney damage for =3 months Stage 3b eGFR 30-44 and kidney damage for =3 months Stage 4 eGFR 15-29 r and kidney damage for =3 months Stage 5 eGFR <15 and kidney damage for =3 months (Template last revised: September 2023) MTDD
--- NOTE | 2023-12-24 14:22 | CDI ---
Documentation Clarification Form Date: 12/20/2023 03:56:00 PM From: Martina Mcclellan Phone: [phone] Admit Date: 12/17/2023 05:38:00 AM Patient Name: Richy Wade Visit Number: [id number] Discharge Date: 12/20/2023 05:45:00 PM ATTENTION: The Clinical Documentation Specialists (CDI) and [facility] Coding Staff appreciate your assistance in clarifying documentation. Please respond to the clarification below the line at the bottom and electronically sign. The CDI & [facility] Coding staff will review the response and follow-up if needed. Please note: Queries are made part of the Legal Health Record. If you have any questions, please contact the author of this message via ITS. Dr. Brijesh Carvalho Your patient has the documented diagnosis of unspecified Heart failure 12/19, Cardiology note. Additional information regarding the [type, acuity] of CHF is requested. History/Risk Factors 68-year-old female presented via EMS for evaluation after being found by family unresponsive following attempting a bowel movement. Per EMS the patient was given one dose of Narcan as was reported that the patient had taken some [place]. 12/16, ED note. Clinical Indicators: Vital Signs 12/16: B/P 118, HR 67, RR 16, SpO2 92% room air ECHO, 12/16: Left ventricular ef estimated at 40-45%. Moderate concentric LVH. Globally reduced LV systolic function. Mild RV dilation and mildly reduced RV systolic function. Polyvalve thickening. Mildly enlarged ascending aorta 4.3cmChest X Ray: 12/16 No acute cardiopulmonary process Treatment: 12/16 - 12/16 Coreg 12.5mg po BID; 12/16 Zestril 5mg po Daily [place], 12/07 Coreg 6.25mg PO BID with meals; 12/16 Eliqus, 12/17 Aspriin 81mg po daily; 12/17 Lipitor 80mg po Daily, 12/19 Farxiga 10mg po Daily, 10/22 Entresto 24mg 26mg po BID. In your professional opinion, can you please clarify the acuity and type of CHF if known? [ X ] Chronic Systolic Heart Failure (reduced EF) [ ] Other, please specify [ ] Unable to determine (Template Last Revised: October 2020) MTDD
--- NOTE | 2023-12-28 05:42 | MISC ---
MISCELLANOUS REPORT Congestive heart failure. Stage IIIA. MMODL / IJN: [id number] /
--- NOTE | 2023-12-30 10:18 | CDI ---
Documentation Clarification Form Date: 12/30/2023 10:13:08 AM From: Viktoria Vargas Phone: Admit Date: 12/17/2023 05:38:00 AM Patient Name: Richy Wade Visit Number: [id number] Discharge Date: 12/20/2023 05:45:00 PM ATTENTION: The Clinical Documentation Specialists (CDI) and [facility] Coding Staff appreciate your assistance in clarifying documentation. Please respond to the clarification below the line at the bottom and electronically sign. The CDI & [facility] Coding staff will review the response and follow-up if needed. Please note: Queries are made part of the Legal Health Record. If you have any questions, please contact the author of this message via ITS. Dr. Parth Taylor Conflicting documentation has been found in the medical record. As attending physician, please provide clarification. CKD Stage IIIA Miscellaneous Report 12/26 Stage IIIBrenal failure Progress Note 12/17 History/Risk Factors: 68yo F, CM,HTNwCSHF, methdependence,A Fib, HxSVT,hypotensionspsyncope, Rx Txnoncompliance Clinical Indicators: BUN: 16-24 GFR: 42-48 Cr: 1.30- 1.21 Treatment: It is noted that her GFR is 46 with a BUN of 24 and creatinine. 1.2.Calcium is also low at 8.1; ifcreatinineis at baseline, will discontinue Lisinopril and start Entresto Please clarify the stage of theCKD, if known: [ ]CKD Stage 3a [ ]CKDStage 3b [ ] Other, please specify [ ] Unable to determine Reference: National Kidney Foundation Stage 1 eGFR = 90 andkidney damagefor =3 months Stage 2 eGFR 60-89 andkidney damagefor =3 months Stage 3a eGFR 45-59 andkidney damagefor =3 months Stage 3b eGFR 30-44 andkidney damagefor =3 months Stage 4 eGFR 15-29 r andkidney damagefor =3 months Stage 5 eGFR <15 andkidney damagefor =3 months (Template lastrevised: September 2023) MTDD
== END 2023-12-20 17:45 | disposition home or self-care (01) | DRG 292 ==
LOC: EC 00:12 → OBSVTOIN 05:38 → 6NMEDSUR 05:38
PROVIDERS: ADMIT Family Medicine; ATTEND Family Medicine
DX: I13.0 Hypertensive heart and chronic kidney disease with heart failure and stage 1 through stage 4 chronic kidney disease, or unspecified chronic kidney disease (principal); F15.20 Other stimulant dependence, uncomplicated; I50.22 Chronic systolic (congestive) heart failure; I42.9 Cardiomyopathy, unspecified; I48.91 Unspecified atrial fibrillation; F19.10 Other psychoactive substance abuse, uncomplicated; N18.31 Chronic kidney disease, stage 3a; I77.810 Thoracic aortic ectasia; I95.9 Hypotension, unspecified; E83.51 Hypocalcemia; E78.5 Hyperlipidemia, unspecified; K21.9 Gastro-esophageal reflux disease without esophagitis; M19.90 Unspecified osteoarthritis, unspecified site; Z79.01 Long term (current) use of anticoagulants; Z91.198 Patient's noncompliance with other medical treatment and regimen for other reason; Z91.148 Patient's other noncompliance with medication regimen for other reason; Z79.82 Long term (current) use of aspirin; Z79.899 Other long term (current) drug therapy; Z91.018 Allergy to other foods; Z82.49 Family history of ischemic heart disease and other diseases of the circulatory system; Z86.73 Personal history of transient ischemic attack (TIA), and cerebral infarction without residual deficits; Z86.79 Personal history of other diseases of the circulatory system
CPT/HCPCS: 36415; 71046; 78452; 80053; 80061; 80306; 81001; 83605; 83735; 84484; 85025; 85610; 85730; 93005; 93017; 93306; 93880; 96374; 99285

== ENCOUNTER → 2024-01-22 | Day surgery (SDC) | payer MEDICARE ==
--- NOTE | 2024-01-29 09:26 | MM ---
Reason for Exam: Post Procedure Mammogram. Risk Values: Roz 5 year model risk: 1.1%. NCI Lifetime model risk: 3.3%. Tissue Density: Left: The breasts are heterogeneously dense, which may obscure small masses. Pathology Description: Location: 1 o'clock. Marker Left Behind. Needle Type: Celero Cores: 5 Gauge: 12 The procedure of ultrasound guided core biopsy was explained to the patient. Benefits, alternatives, and risks were discussed. An informed consent was then obtained. The patient was placed in supine positioning for imaging and for the procedure. The overlying skin was prepped and draped in usual sterile fashion. Lidocaine buffered with bicarbonate was used as anesthetic into the skin and subcutaneous tissue up to area of concern in the left 1:00 breast. A carolyn was made with surgical scalpel. Under ultrasound guidance, a 12-gauge vacuum assisted biopsy gun device was used to obtain 5 core samples. Following this, a biopsy clip was left in lesion. The patient tolerated the procedure well without any immediate complication. The patient was kept in the radiology department for short stay after the procedure and then discharged home in stable condition. Postprocedure mammogram: The patient was transferred to mammography for physician ordered post procedure mammogram for clip placement verification. Impression: Successful, uncomplicated ultrasound guided core biopsy of area of concern in the left 1:00 breast, full pathology results to follow. Pathology Results: Result: Benign, Fibrocystic change. Pathology and radiology were reviewed. Findings are concordant. LEFT BREAST, 1:00, ULTRASOUND GUIDED NEEDLE CORE BIOPSY: Hyalinizing stromal fibrosis/scar with background fibrocystic changes including rare microcalcifications. Negative for malignancy. Overall Assessment: Benign Assessment: MG diagnostic mammo LT wo CAD. - Left: Benign, BI-RAD 2. Management: Diagnostic Breast Ultrasound of the left breast in 6 months. Electronically signed and approved by: Mahin Ernandez M.D. Radiologis
== END ==
LOC: RADUSWWP 13:24
PROVIDERS: ATTEND Surgery
DX: R92.8 Other abnormal and inconclusive findings on diagnostic imaging of breast (principal); N60.32 Fibrosclerosis of left breast; L90.5 Scar conditions and fibrosis of skin
CPT/HCPCS: 88305; 77065; 19083; A4648

== ENCOUNTER → 2024-01-30 | Outpatient (CLI) | payer MEDICARE ==
--- NOTE | 2024-01-30 08:47 | P.GSCN ---
History of Present Illness Consult date: 01/30/24 Reason for Consult: biopsy left breast/benign specific 01-22-24 History of present illness: Richy is a 68 year old female status post bilateral mammogram at [facility] which resulted in the left breast. Her bilateral mammogram was performed on 09-26-2023. Ultrasound of the left breast was performed on 12-12-2023. The bilateral mammogram revealed in the right breast no lesions of concern in the left breast and 8 mm nodular opacity involving the upper outer position of the breast approximately 13 cm from the nipple. On the ultrasound in 8 mm lesion was identified and ultrasound-guided core biopsy was recommended. With this is in the upper outer middle position of the breast Biopsy was performed as stated on 01-22-2024. This led to a biopsy of the left breast which was performed on 01-22-2024. This revealed hyalinizing stromal fibrosis/scar with background fibrocystic changes including rare microcalcifications. Negative for malignancy. She is not complaining of any new lumps masses or nodules of concern in either breast. She has not had any surgery on her breast. She is not complaining of any skin changes or nipple discharge. She has not had any recent trauma or infection in the breast. Caffeine: occasional nicotine: none, and daughter smokers chocolate: occasional BCP: used for about 10 years in the past hormmones: none Family History: brother: melanoma father: skin cancer maternal uncle: throat cancer Hormonal History: menarche: 11 M1, age at first birht: 18, breast fed: no menopause: 48 Surgical History: cardiac ablation tonsil/adenoids tubaligation Medical History; congestive heart failure pulmonary embolism Social History: nicotine: Exposed to secondhand smoke/she is not a smoker Alcohol:three times a week before bed drugs: none Review of Systems - Constitutional Reports sweats - EENT EENT Comment(s): bilateral cataracts Eyes: bilateral blurred vision Ears: deny: decreased hearing Ears, nose, mouth and throat: Denies dysphagia - Breasts bilateral: as per HPI - Cardiovascular Reports shortness of breath, Denies chest pain - Respiratory Reports cough - Gastrointestinal Reports as per HPI - Genitourinary Genitourinary: Denies dysuria, Denies hematuria Menstruation: Reports postmenopausal - Musculoskeletal Reports myalgias - Integumentary Reports pruritus, Denies unusual bruising - Neurological Reports syncope, Denies headaches - Psychiatric Reports as per HPI - Endocrine Reports fatigue - Hematologic/Lymphatic Reports as per HPI - Allergic/Immunologic Reports seasonal allergies Past Medical History Past Medical History: Atrial Fibrillation, GERD/Reflux, Hyperlipidemia, Hypertension, Musculoskeletal Disorder, Osteoarthritis (OA), Supraventricular Tachycardia (SVT) Additional Past Medical History / Comment(s): february 2018 possible TIA, but CT was normal. 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 Past Anesthesia/Blood Transfusion Reactions: No Reported Reaction Past Psychological History: Anxiety Smoking Status: Never smoker Past Alcohol Use History: Occasional Past Drug Use History: None Reported - Past Family History Mother Family Medical History: Liver Disease Father Family Medical History: Coronary Artery Disease (CAD), Myocardial Infarction ([place]) Sister(s) Family Medical History: No Reported History, Unable to Obtain Brother(s) Family Medical History: Cancer Daughter(s) Family Medical History: No Reported History Medications and Allergies Home Medications Medication Instructions Recorded Confirmed Type Albuterol Sulfate [Albuterol 1 - 2 puff PO RT-QID PRN 12/17/23 01/13/24 History Sulfate Hfa] Apixaban [Eliquis] 5 mg PO BID 12/17/23 01/13/24 History Aspirin 81 mg PO DAILY 12/17/23 01/13/24 History Atorvastatin [Lipitor] 80 mg PO DAILY 12/17/23 01/13/24 History Furosemide [Lasix] 40 mg PO DAILY 12/17/23 01/13/24 History Sacubitril/Valsartan [Entresto 97 1 tab PO DAILY 12/17/23 01/13/24 History mg-103 mg Tablet] carvediloL [Coreg] 6.25 mg PO BID 12/17/23 01/13/24 History hydrALAZINE HCL [Apresoline] 10 mg PO TID 12/17/23 01/13/24 History rOPINIRole HCL 0.25 mg PO HS 12/17/23 01/13/24 History Allergies Allergy/AdvReac Type Severity Reaction Status Date / Time rice Allergy Anaphylaxis Verified 01/13/24 11:35 Surgical - Exam - General no distress - Eyes normal ocular movement - ENT no hearing loss - Neck trachea midline - Respiratory normal respiratory effort, clear to auscultation - Cardiovascular Heart Sounds: normal: S1, S2 - Abdomen Abdomen: soft - Integumentary Mild ecchymosis at biopsy site left breast upper outer quadrant - Neurologic no disoriented, no combative - Psychiatric oriented to time, oriented to person, oriented to place, speech is normal, memory intact Breast examination: Bra: 42 D Inspection: Bilateral grade 3 ptosis Palpation: Right breast: Multi positional exam fibrocystic changes no dominant masses or nodules of concern Right axilla: No adenopathy of concern Left breast: Multi positional exam fibrocystic changes, mild ecchymosis upper outer quadrant with approximately 2 cm area of nodularity near the biopsy site Left axilla: No adenopathy of concern Results Mammogram and ultrasound personally reviewed Assessment and Plan Assessment: Impression: Abnormal left breast mammogram and ultrasound Ultrasound-guided core biopsy left breast felt to be benign specific Palpable change upper outer quadrant left breast suspect related to hematoma from biopsy Plan: Repeat left breast mammogram and ultrasound in 6 months with examination at that time Will reevaluate the patient in 3 months to assure that the hematoma has resolved and that this palpable change is related to her recent biopsy Patient to follow-up sooner any questions or concerns CC: Dr. Taylor
[2024-01-30 09:23] VITALS: BP 198/105; PULSE 98; RESP 17; TEMP 98.1
== END ==
LOC: WWCWWP 08:12
PROVIDERS: ATTEND Surgery
DX: R92.0 Mammographic microcalcification found on diagnostic imaging of breast (principal); N60.32 Fibrosclerosis of left breast; L90.5 Scar conditions and fibrosis of skin; Z91.018 Allergy to other foods